=== PATIENT | female | born 1945 | race Caucasian/White ===

== ENCOUNTER 2016-05-26 16:28 | Emergency (ER) | payer MEDICARE, OTHER ==
[~2016-05-26] VITALS: Ht 157.5 cm; Wt 69.0 kg
[2016-05-26 16:28] VITALS: BP 99/54; PULSE 75; RESP 15; O2SAT 94
[~2016-05-26 16:28] MED LIST: ATOR40TA69 PO; CARV12.5 PO; CLOP75TA28 PO; ERGO500050 PO; FENO160T14 PO; FLUO40CA PO; GABA-502 PO; HYDR25CA PO; MECL-114 PO; NITR0.4T SL; OXYC5TAB72 PO; PROM12.510 PO; ROPI2TAB3 PO; SEVE800T7 PO; ZLP10T PO; [UNRECOGNIZED DRUG - REMARK] XX
--- NOTE | 2016-05-26 16:38 | ED.REPORT ---
HPI-Chest Pain 40 and Over Date of Service May 26, 2016 ED Provider: Ezequiel Samuel MD Patient is a 70 year old female with a history of ESRD on dialysis, Crohn's disease s/p total colectomy, and hypertension who presents to the ED via EMS after she developed chest pain at 3:30pm this afternoon. The pain started in the center of her chest, moving to the left, and down her left arm. She reports associated nausea and diaphoresis but denies shortness of breath. The patient took 2x nitroglycerin after onset of chest pain and was found unresponsive on EMS arrival. However, the patient was awakened and she reported ongoing chest pain and a headache. Patient was found to be hypotensive, which she states always happens following dialysis. She also had a routine appointment with her home economist, Dr. Bravo, this morning. The patient states that this is the first time she has needed to use the nitroglycerin at home. She has an episode of chest pain similar in character several months ago, which resolved. Patient denies having acid-reflux. Patient denies fever, abdominal pain, or cough. One visit to ED last month for chest pain. Negative stress test 2014 Gauge Machine Operator: Dr. Burch PCP: Dr. Horn Nursing Notes Stated Complaint: CHEST PAIN Nursing Notes Reviewed: Yes Allergies: Coded Allergies: Penicillins (Verified Allergy, Severe, Anaphylaxis, 01/20/16) Sulfa (Sulfonamide Antibiotics) (Verified Allergy, Severe, ANAPHYLAXIS, 01/20/16) NSAIDS (Non-Steroidal Anti-Inflamma (Verified Allergy, Intermediate, " HARD ON KIDNEYS", 01/20/16) morphine (Verified Allergy, Intermediate, "goes crazy", 01/20/16) aspirin (Verified Allergy, Unknown, tongue swells, 01/20/16) heparin (Verified Allergy, Unknown, thrombocytopenia, 01/20/16) HIT latex (Verified Allergy, Unknown, weeping rash, 01/20/16) Uncoded Allergies: CHLORAPREP (Allergy, Severe, rash/itching, 01/08/16) weeping rash Foam Dressing (Allergy, Severe, Hives, 10/09/13) Deep redness, pain, and swelling to skin occurs when foam dressing is used. Scheduled Atorvastatin (Lipitor) 20 Mg Tablet 20 MG PO DAILY Carvedilol (Coreg) 12.5 Mg Tablet 12.5 MG PO DAILY Do not take in the morning of dialysis Clopidogrel (Clopidogrel) 75 Mg Tablet 75 MG PO DAILY Ergocalciferol (Vitamin D2) (Drisdol) 50,000 Unit Capsule 50,000 UNIT PO Q7D Fluoxetine (Fluoxetine) 40 Mg Capsule 40 MG PO QAM Gabapentin (Gabapentin) 300 Mg Capsule 900 MG PO TID Lanthanum Carb Chew (Fosrenol Chew) 500 Mg Chew 1,000 MG PO TID Leflunomide (Leflunomide) 20 Mg Tablet 20 MG PO DAILY Ropinirole (Ropinirole) 2 Mg Tablet 2 MG PO DAILY Sevelamer Carbonate (Renvela) 800 Mg Tablet 800 MG PO TID Scheduled PRN ([Emla]) 1 APPLIC TOPICAL DIRECTED PRN PRN For Pain apply topically over left AVF 1/2 hr before dialysis on , , TUE Hydroxyzine Pamoate (Vistaril) 25 Mg Capsule 25 MG PO QID PRN PRN For Itching Meclizine (Bonine) 25 Mg Tab.chew 12.5 MG PO TID PRN PRN PRN Nitroglycerin SL (Nitrostat) 0.4 Mg Tab.subl 0.4 MG SL Q5MIN PRN PRN ANGINA Ondansetron (Ondansetron) 4 Mg Tablet 4 MG PO TID PRN PRN For Nausea/Vomiting Zolpidem (Ambien) 5 Mg Tablet 5 MG PO HS PRN PRN For Insomnia oxyCODONE (oxyCODONE) 5 Mg Tablet 5 MG PO Q6-8H PRN PRN For Pain General Time Seen by MD: 16:45 Chief Complaint Chest pain Hx Obtained From: Patient Arrived By: Ambulance Sudden in Onset?: Yes Onset Occurred: 1 - 4 hours ago Symptom Duration: Since onset Location: : Chest left: Chest right Quality: Painful Severity: Current: Moderate Severity: Maximum: Moderate Recent Healthcare: No recent doctor visit, No recent hospitalization Past Medical History Past Medical History Notes: stopped remicade 06/2011, taking plaquenil PCP: Dr. Horn Gauge Machine Operator: Dr. Burch Past Medical History History of Crohn's disease. Status post total colectomy and ileostomy, treated with Remicade infusion once a month, and followed by Dr. Kim. ESRD following cardiac arrest, on , , and Sat dialysis History of recurrent small bowel obstructions and adhesions History of subdural hematoma. History of heparin-induced thrombocytopenia. History of recent abdominal wall cellulitis with MRSA, for which the patient finished a course of IV vancomycin just yesterday. History of TIA, left sided weakness Does not drive due to chronic vertigo Hx cardiac arrest during abd surgery Reports: Diabetes mellitus, GERD, Hypertension, Stroke Reports: Atrial fibrillation, Depression Past Surgical History bowel resection ileostomy colectomy Reports: Cholecystectomy Smoking History Former Smoker Social History Alcohol Use: Denies alcohol use Drug Use: Denies drug use Occupation lives with Ambulatory Status Independent Review of Systems Constitutional: Denies: Chills, Fever Respiratory: Denies: Non-productive cough, Shortness of breath Cardiovascular: Reports: Chest pain, Denies: Palpitations GI: Reports: Nausea, Denies: Abdominal pain, Vomiting Skin: Reports Diaphoresis Neurologic: Reports: Headache Complete sys rev & neg: except as marked. Physical Exam Initial Vital Signs Vital Signs (First) Date Time Temp Pulse Resp B/P Pulse Ox O2 Delivery O2 Flow Rate FiO2 05/26/16 16:28 36.7 75 15 99/54 94 Room Air 05/26/16 17:55 2 Initial VS: Reviewed Head / Eyes: Atraumatic, Normocephalic, PERRL ENT: Conjunctiva normal, No scleral icterus Neck: Supple, Full range of motion Skin: Warm, Dry Neurologic: Alert, Oriented, Nonfocal Psychiatric: Mood/affect normal, Behavior normal, Normal thought content General/Constitutional: Awake, Alert, No acute distress Respiratory / Chest: Breath sounds NL, Breath sounds = bilat, No respiratory distress, No rales, No rhonchi, No wheezing Cardiovascular: Heart rate NL, Regular rhythm, No gallop, No rubs Heart Sounds / Murmur: Positive: Murmur shape... (Crescendo), Systolic murmur present.. (upper left sternal border) Abdomen: Soft, BS normoactive Lower Extremity / Pelvis / MS: Full range of motion, No edema Upper Extremity / MS: No swelling, No deformity, No edema palpable thrill left arm, AV fistula Interpretation & Diagnostics Lab Results Interpretation Result Diagram: 05/26/16 1713 05/26/16 1713 Test 05/26/16 17:13 05/26/16 19:28 White Blood Count 5.1th/mm3 (3.8-10.1) Red Blood Count 3.98mil/mm3 (3.90-5.20) Hemoglobin 12.6g/dL (12.0-15.6) Hematocrit 38.3% (35.0-46.0) Mean Corpuscular Volume 96.2fL (81-100) Mean Corpuscular Hemoglobin 31.7pg (27.0-35.0) Mean Corpuscular Hemoglobin Concent 32.9% (32.0-37.0) Red Cell Distribution Width 14.4% (12.3-15.4) Platelet Count 167bil/L (150-400) Neutrophils (%) (Auto) 56.3% (40-74) Lymphocytes (%) (Auto) 27.0% (14-46) Monocytes (%) (Auto) 9.3% (4-12) Eosinophils (%) (Auto) 6.2% (0-5) Basophils (%) (Auto) 0.6% (0-3) Sodium Level 132mEq/L (134-144) Potassium Level 4.3mEq/L (3.5-5.2) Chloride Level 85mEq/L (97-108) Carbon Dioxide Level 26mmol/L (18-29) Blood Urea Nitrogen 34mg/dL (8-27) Creatinine 5.82mg/dL (0.57-1.00) Estimat Glomerular Filtration Rate 10mL/min (>59) Glucose Level 111mg/dL (60-99) Calcium Level 8.7mg/dL (8.5-10.1) Magnesium Level 1.6mg/dL (1.6-2.6) Total Bilirubin 0.2mg/dL (0.0-1.2) Aspartate Amino Transf (AST/SGOT) 20U/L (0-50) Alanine Aminotransferase (ALT/SGPT) 24U/L (0-32) Alkaline Phosphatase 257U/L (25-165) Total Protein 7.5g/dL (6.4-8.4) Albumin 4.6g/dL (3.4-5.0) Hold Odonnell Top Tube Received (Received) Troponin T < 0.010ug/L (0.0-0.011) ECG Interpretation Time: 16:27 Interpreted by: ED physician Normal ECG Interpretation: Normal ECG w/ rate of... (70), No acute ischemic changes Time: 18:55 Interpreted by: ED physician Normal ECG Interpretation: Normal ECG w/ rate of... (66), No acute ischemic changes Repeat ECG: Repeat ECG unchanged X-Ray Chest Interpretation Chest Xray Interpretation: IMPRESSION: No acute process. Dictated by: Macarena Moe M.D. on 05/26/2016 at 16:58 Approved by: Macarena Moe M.D. on 05/26/2016 at 16:58 View: Portable, 1 view Interpretation / Wet Read by: Interpret - Radiologist Re-Eval/Medical Decision Source of Hx: Old records Time of Eval: 18:35 Patient Status: Condition improved Re-Evaluation/Progress Note: Patient states that her chest pain is now improved. However, she now has an ongoing headache. Time of Eval: 20:09 Patient Status: Condition improved Re-Evaluation/Progress Note: Patient understands and agrees with the plan to be discharged home. Work-up was negative. Discharge instructions and follow-up discussed. All questions were addressed. Return to the ED warnings given. Counseled Regarding: Diagnosis, Lab results, Need for follow-up, When/why to return to ED Discharge & Departure Primary Impression: Chest pain Chest pain type: unspecified Qualified Code: R07.9 - Chest pain, unspecified Disposition: Home Discharge Condition All VS Reviewed: Yes Condition: Stable Patient Instructions: Chest Pain (ED) Additional Instructions: Emergency department evaluation today included interview, examination, review of old records, chest x-ray, EKG 2x, and laboratory evaluation with repeat of testing for heart muscle damage. No serious cause for chest pain is found. continue previous home care, may use your home pain medications as needed. return to ED for increasing pain or increasing trouble breathing. Follow up with primary care and nephrology soon. Referrals: Gabriella Horn MD (PCP) Giaibe Attestation Portions of this note were transcribed by Christine Crowder. I, Dr. Samuel personally performed the history, physical exam and medical decision-making; I reviewed and confirmed the accuracy of the information in the transcribed note. Signed by: Kimberly Alvarez, 05/26/2016 0407 copies to: Gabriella Horn MD, Donald L MD May 26, 2016 16:38 Chrisitne Crowder May 26, 2016 16:41
--- NOTE | 2016-05-26 17:00 | DRSVH ---
PROCEDURE: X-RAY CHEST ONE VIEW, PORTABLE ([id number]) INDICATIONS: chest pain TECHNIQUE: One view of the chest was acquired. COMPARISON: LOCATED WITHIN [facility], CR, XR CHEST 2VW, 05/05/2016, 12:31. [facility], C R, XR CHEST 1VW (PORTABLE), 03/31/2016, 13:41. [facility], CR, XR CHEST 1VW (PORTABLE), 10/07/2015, 17:00. [facility], CR, XR CHEST 1VW (PORTABLE), 10/03/2015, 7:17. FINDINGS: Surgical changes and devices: None. Lungs and pleura: No pleural effusions or pneumothorax. Lungs are clear. Mediastinum: Mediastinal contours appear normal. Heart size is normal. Bones and chest wall: No suspicious bony lesions. Overlying soft tissues appear unremarkable. IMPRESSION: No acute process. Dictated by: Macarena Moe M.D. on 05/26/2016 at 16:58 Approved by: Macarena Moe M.D. on 05/26/2016 at 16:58
[2016-05-26] MEDS ORDERED: LEFL20TA18 PO (17:13)
[2016-05-26] MEDS ORDERED: ZLP5T PO (17:13)
[2016-05-26] MEDS ORDERED: LANT500T PO (17:13)
[2016-05-26] MEDS ORDERED: ATOR20TA PO (17:13)
[2016-05-26] MEDS ORDERED: ONDA-53 PO (17:13)
[2016-05-26] MEDS ORDERED: EMLA TOPICAL (17:13)
[2016-05-26 17:24] LABS: BASOPHILS % (AUTO) 0.6 % (0-3); EOSINOPHILS % (AUTO) 6.2 % (0-5); MONOCYTES % (AUTO) 9.3 % (4-12); Mean Corpuscular Hemoglobin 31.7 pg (27.0-35.0); Mean Corpuscular Volume 96.2 fL (81-100); NEUTROPHILS % (AUTO) 56.3 % (40-74); Platelet Count 167 bil/L (150-400)
[2016-05-26 17:55] VITALS: BP 91/45; PULSE 70; RESP 16; O2SAT 98
[2016-05-26 18:01] LABS: Magnesium 1.6 mg/dL (1.6-2.6)
[2016-05-26 18:11] LABS: TROPONIN T < 0.010 ug/L (0.0-0.011)
[2016-05-26] MEDS ORDERED: HYDROmorphone 1 mg/mL Inj IM ONE (18:45)
[2016-05-26 19:30] VITALS: BP 103/56; PULSE 71; RESP 18; O2SAT 97
[2016-05-26 20:48] VITALS: BP 105/65; RESP 16; O2SAT 97
== END 2016-05-26 20:30 | disposition home or self-care (01) ==
LOC: SED 16:28
DX: R07.9 Chest pain, unspecified (principal); I12.0 Hypertensive chronic kidney disease with stage 5 chronic kidney disease or end stage renal disease; E11.22 Type 2 diabetes mellitus with diabetic chronic kidney disease; N18.6 End stage renal disease; K21.9 Gastro-esophageal reflux disease without esophagitis; Z86.73 Personal history of transient ischemic attack (TIA), and cerebral infarction without residual deficits; Z90.49 Acquired absence of other specified parts of digestive tract; Z87.891 Personal history of nicotine dependence; Z88.0 Allergy status to penicillin; Z88.2 Allergy status to sulfonamides; Z88.5 Allergy status to narcotic agent; Z88.6 Allergy status to analgesic agent; Z88.8 Allergy status to other drugs, medicaments and biological substances; Z91.040 Latex allergy status
CPT/HCPCS: 36415; 71010; 80053; 83735; 84484; 85025; 93005; 96372; 99285; G0463; J1170

== ENCOUNTER 2016-09-03 16:34 | Inpatient (IN) | payer MEDICARE, OTHER ==
[~2016-09-03] VITALS: Ht 157.5 cm; Wt 74.4 kg
[~2016-09-03 16:34] MED LIST changes: +ATOR20TA PO; -ATOR40TA69 PO; +EMLA TOPICAL; -FENO160T14 PO; +LANT500T PO; +LEFL20TA18 PO; +ONDA-53 PO; -PROM12.510 PO; -ZLP10T PO; +ZLP5T PO; -[UNRECOGNIZED DRUG - REMARK] XX
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
[2016-09-03 16:53] VITALS: BP 100/46; PULSE 80; RESP 15; O2SAT 97
[2016-09-03] MEDS ORDERED: fentaNYL-PF 50 mCg/mL 2 mL Inj IVPUSH ONE (16:55)
[2016-09-03 16:56] LABS: BASOPHILS % (AUTO) 0.5 % (0-3); EOSINOPHILS % (AUTO) 2.8 % (0-5); MONOCYTES % (AUTO) 9.5 % (4-12); Mean Corpuscular Hemoglobin 31.5 pg (27.0-35.0); Mean Corpuscular Volume 101.4 fL (81-100); NEUTROPHILS % (AUTO) 53.5 % (40-74); Platelet Count 199 bil/L (150-400)
[2016-09-03] MEDS: Nitroglycerin 2% 1 Gm Ointment TOPICAL SCH (17:24)
[2016-09-03 17:26] LABS: TROPONIN T < 0.010 ug/L (0.0-0.011)
[2016-09-03 17:32] LABS: Magnesium 1.6 mg/dL (1.6-2.6)
--- NOTE | 2016-09-03 17:35 | DRSVH ---
PROCEDURE: X-RAY CHEST ONE VIEW, PORTABLE ([id number]) INDICATIONS: CHEST PAIN TECHNIQUE: One view of the chest was acquired. COMPARISON: [facility], CR, XR CHEST 2VW, 06/18/2015, 11:45. [facility], CR , XR CHEST 1VW (PORTABLE), 05/26/2016, 16:41. FINDINGS: Surgical changes and devices: None. Lungs and pleura: No pleural effusions or pneumothorax. Lungs are clear. Mediastinum: Mediastinal contours appear normal. Heart size is normal. Bones and chest wall: No suspicious bony lesions. Overlying soft tissues appear unremarkable. IMPRESSION: No acute cardiopulmonary disease process. Dictated by: Sintia Franklin MD, PhD on 09/03/2016 at 17:32 Approved by: Sintia Franklin MD, PhD on 09/03/2016 at 17:33
--- NOTE | 2016-09-03 17:58 | DRSVH ---
PROCEDURE: US VENOUS LEG DUPLEX BILATERAL INDICATIONS: Chest pain, assess for DVT TECHNIQUE: Real-time imaging, as well as color and pulse Doppler interrogation, were performed of the deep veins of both legs from the inguinal ligament to the popliteal fossa. COMPARISON: None. FINDINGS: The deep veins are normally compressible, and free of intraluminal thrombus. Color and pu lse Doppler demonstrate normal phasic intravascular flow. There is normal augmentation response to d istal compression maneuver. IMPRESSION: No evidence of deep vein thrombosis involving either the right or left lower extremities . Dictated by: Sintia Franklin MD, PhD on 09/03/2016 at 17:56 Approved by: Sintia Franklin MD, PhD on 09/03/2016 at 17:57
[2016-09-03] MEDS ORDERED: Sodium Bicarb (50 mEq) 8.4% 1 mEq/mL 50 mL Syringe IVPUSH ONE (18:45)
[2016-09-03] MEDS ORDERED: Insulin Human REGular-Omnicell 100 Unit/mL IV ONE (18:45)
[2016-09-03] MEDS ORDERED: Albuterol 0.5% (5mg/mL) 20 mL Inhalation Solution NEB ONE (18:45)
[2016-09-03] MEDS ORDERED: Calcium GLUCOnate 10% (Gm) 1 Gm/10 mL Inj IVPUSH PRN (18:45)
[2016-09-03] MEDS ORDERED: Sodium Polystyrene Sulfonate 0.25 Gm/mL 500 mL Suspension PO ONE (18:50)
[2016-09-03 18:55] VITALS: BP 98/65; PULSE 78; RESP 14; O2SAT 97
[2016-09-03] MEDS ORDERED: CHOL500050 PO (19:07)
[2016-09-03] MEDS ORDERED: CINA60TA PO (19:13)
[2016-09-03] MEDS ORDERED: [UNRECOGNIZED DRUG - CODE] PO (19:13)
[2016-09-03] MEDS ORDERED: PROM25TA14 PO (19:13)
[2016-09-03] MEDS ORDERED: LIDO1KIT TP (19:15)
[2016-09-03] MEDS ORDERED: Polyethylene Glycol (PEG) 17 Gm Powder PO PRN (19:35)
[2016-09-03] MEDS ORDERED: Ondansetron 2 mg/mL 2 mL Inj IVPUSH PRN (19:35)
[2016-09-03] MEDS ORDERED: Alum-Mag Hydrox-Simeth 30 mL Suspension PO PRN (19:35)
[2016-09-03] MEDS ORDERED: HYDROmorphone 0.5 mg/0.5 mL iSecure Syringe IVPUSH ONE (19:55)
[2016-09-03 20:20] VITALS: PULSE 95; RESP 20; O2SAT 98
[2016-09-03 20:40] VITALS: BP 105/56; PULSE 101; RESP 16; O2SAT 98
--- NOTE | 2016-09-03 21:14 | PCM.HPMED ---
Subjective Date of Service Sep 03, 2016 Primary Provider: Admitting Physician: Primary Care Physician: Gabriella Horn MD Attending Physician: Admit Status: From the Emergency Department Chief Complaint: Chest Pain History of Present Illness: Very pleasant 71yo woman with history of Crohn's Disease s/p Colectomy at age11 and multiple surgeries for SBO, ESRD on HD, DM2, HTN, Afib on Plavix presents with severe chest pain radiating to the jaw and left arm accompanied by sweating that started at 4pm today. She reports that she has occasional episodes of milder chest pain that have resolved quickly in the past with Nitrostat. She had a normal stress test in May. In the ED she was found to have a K+ of 6.2. She has HD on , Tue. In the ED she has been given Calcium Gluconate, Insulin, and Kayexalate along with Dilaudid. Her chest pain is much improved and she is resting comfortably. Initial Troponin was < 0.010. Review of Systems: Chronic right hip pain. Complete ROS is otherwise negative except as noted above in the HPI. Allergies Coded Allergies: Penicillins (Verified Allergy, Severe, Anaphylaxis, 09/03/16) Sulfa (Sulfonamide Antibiotics) (Verified Allergy, Severe, ANAPHYLAXIS, ) NSAIDS (Non-Steroidal Anti-Inflamma (Verified Allergy, Intermediate, " HARD ON KIDNEYS", 09/03/16) morphine (Verified Allergy, Intermediate, "goes crazy", 09/03/16) aspirin (Verified Allergy, Unknown, tongue swells, 09/03/16) heparin (Verified Allergy, Unknown, HEPARIN INDUCED THROMBOCYTOPENIA, 09/03) HIT latex (Verified Allergy, Unknown, weeping rash, 09/03/16) Uncoded Allergies: CHLORAPREP (Allergy, Severe, rash/itching, 01/08/16) weeping rash Foam Dressing (Allergy, Severe, Hives, 10/09/13) Deep redness, pain, and swelling to skin occurs when foam dressing is used. Home Medications Scheduled Atorvastatin (Lipitor) 20 Mg Tablet 40 MG PO HS Cholecalciferol (Vitamin D3) (Vitamin D) 50,000 Unit Capsule 50,000 UNIT PO WEEKLY Cinacalcet HCl (Sensipar) 60 Mg Tablet 60 MG PO HS Clopidogrel (Clopidogrel) 75 Mg Tablet 75 MG PO QAM Doxercalciferol (Hectorol) 0.5 Mcg Capsule Unknown Dose PO TuThSa RECEIVES WITH DIALYSIS, UNKNOWN DOSE Fluoxetine (Fluoxetine) 40 Mg Capsule 40 MG PO QAM Gabapentin (Gabapentin) 300 Mg Capsule 900 MG PO TID Lanthanum Carb Chew (Fosrenol Chew) 500 Mg Chew 1,000 MG PO TIDWM Leflunomide (Leflunomide) 20 Mg Tablet 20 MG PO HS Lidocaine/Prilocaine (Prilolid 2.5-2.5% Crm-Dress) 2.5 %-2.5 % Kit 1 EACH TP / JAZMYNE/TUE APPLY TOPICALLY OVER LEFT AVF 1/2 HOUR PRIOR TO DIALYSIS Ropinirole (Ropinirole) 2 Mg Tablet 2 MG PO HS Sevelamer Carbonate (Renvela) 800 Mg Tablet 1,600 MG PO TIDWM Zolpidem (Ambien) 5 Mg Tablet 5 MG PO HS Scheduled PRN Hydroxyzine Pamoate (Vistaril) 25 Mg Capsule 25 MG PO QID PRN PRN For Itching Meclizine (Bonine) 25 Mg Tab.chew 12.5 MG PO TID PRN PRN VERTIGO, NAUSEA/ VOMITING Nitroglycerin SL (Nitrostat) 0.4 Mg Tab.subl 0.4 MG SL Q5MIN PRN PRN ANGINA Ondansetron (Ondansetron) 4 Mg Tablet 4 MG PO TID PRN PRN For Nausea STATES TAKES AT BEDTIME SCHEDULED Promethazine (Promethazine) 25 Mg Tablet 25 MG PO Q6H PRN PRN For Nausea/ Vomiting oxyCODONE (oxyCODONE) 5 Mg Tablet 5 MG PO Q6H PRN PRN For Pain PMH History of Crohn's disease. Status post total colectomy and ileostomy, treated with Remicade infusion once a month, and followed by Dr. Kim. ESRD following cardiac arrest, on , , and Tue dialysis History of recurrent small bowel obstructions and adhesions History of subdural hematoma. History of heparin-induced thrombocytopenia. History of recent abdominal wall cellulitis with MRSA, for which the patient finished a course of IV vancomycin just yesterday. History of TIA, left sided weakness Does not drive due to chronic vertigo Hx cardiac arrest during abd surgery Diabetes mellitus, GERD, Hypertension, Stroke Atrial fibrillation, Depression Osteoarthritis RLS Surgical History Bowel resection Ileostomy Colectomy Multiple surgeries for SBO Cholecystectomy Evacuation of subdural hematoma Family History Father: , HTN, stroke, CAD, CABG, [place] Mother: , HTN, Stroke, CAD Social History Hx Alcohol Use: No Hx Substance Use: No Hx Tobacco Use: No Smoking Status: Former Smoker Living Arrangement: with Family Exam Vital Signs Vital Sign - Last Date Time Temp Pulse Resp B/P Pulse Ox O2 Delivery O2 Flow Rate FiO2 09/03/16 18:55 78 14 98/65 97 Nasal Cannula 1 09/03/16 16:53 36.7 Exam General: Alert, Oriented X3, Cooperative, No Acute Distress Head: Normocephalic, atraumatic. External ears normal. Eyes: PERRLA, EOMI. Anicteric sclerae. Mouth: Mouth Normal, Mucous Membranes Moist/Occidental Neck: Neck supple with full range of motion. Chest & Lungs: Clear to auscultation bilaterally with no crackles, wheezes, or rhonchi. Cardiovascular: Regular Rate/Rhythm, Normal S1, Normal S2, No Murmurs/Rubs/ Gallops Abdomen: Non-tender, Non-distended, No masses, Normoactive bowel tones, Soft, ileostomy in place in LLQ Musculoskeletal: Normal Range of Motion Extremities: No cyanosis/clubbing/edema bilaterally Neurological: Grossly Neurologically Intact, Cranial Nerves 2-12 Intact, Normal Speech Lab and Diagnostics Labs Laboratory Tests Test 09/03/16 16:40 White Blood Count 6.4th/mm3 (3.8-10.1) Red Blood Count 3.56mil/mm3 (3.90-5.20) Hemoglobin 11.2g/dL (12.0-15.6) Hematocrit 36.1% (35.0-46.0) Mean Corpuscular Volume 101.4fL (81-100) Mean Corpuscular Hemoglobin 31.5pg (27.0-35.0) Mean Corpuscular Hemoglobin Concent 31.0% (32.0-37.0) Red Cell Distribution Width 14.2% (12.3-15.4) Platelet Count 199bil/L (150-400) Neutrophils (%) (Auto) 53.5% (40-74) Lymphocytes (%) (Auto) 33.4% (14-46) Monocytes (%) (Auto) 9.5% (4-12) Eosinophils (%) (Auto) 2.8% (0-5) Basophils (%) (Auto) 0.5% (0-3) Sodium Level 133mEq/L (134-144) Potassium Level 6.2mEq/L (3.5-5.2) Chloride Level 85mEq/L (97-108) Carbon Dioxide Level 25mmol/L (18-29) Blood Urea Nitrogen 40mg/dL (8-27) Creatinine 6.67mg/dL (0.57-1.00) Estimat Glomerular Filtration Rate 9mL/min (>59) Glucose Level 91mg/dL (60-99) Calcium Level 8.8mg/dL (8.5-10.1) Magnesium Level 1.6mg/dL (1.6-2.6) Total Bilirubin 0.2mg/dL (0.0-1.2) Aspartate Amino Transf (AST/SGOT) 18U/L (0-50) Alanine Aminotransferase (ALT/SGPT) 19U/L (0-32) Alkaline Phosphatase 231U/L (25-165) Troponin T < 0.010ug/L (0.0-0.011) Total Protein 7.8g/dL (6.4-8.4) Albumin 4.8g/dL (3.4-5.0) Result Diagram: 09/03/16 1640 09/03/16 1640 12-lead ECG ECG Interpretation: Normal sinus rhythm rate 84 No ischemic changes No interval change from previous on 05/26/2016 Time: 16:43 Interpreted by: ED physician ECG Interpretation: Normal sinus rhythm rate 76 No acute ischemia No interval change from previous today Time: 18:11 Interpreted by: ED physician Also reviewed by myself, Dr De Leon, and I agree with above interpretations. Assessment & Plan Very pleasant 71yo woman with history of Crohn's Disease s/p Colectomy at age11 and multiple surgeries for SBO, ESRD on HD, DM2, HTN, Afib on Plavix presents with severe chest pain radiating to the jaw and left arm accompanied by sweating that started at 4pm today. She reports that she has occasional episodes of milder chest pain that have resolved quickly in the past with Nitrostat. She had a normal stress test in May. In the ED she was found to have a K+ of 6.2. She has HD on , Sat. In the ED she has been given Calcium Gluconate, Insulin, and Kayexalate along with Dilaudid. Her chest pain is much improved and she is resting comfortably. Initial Troponin was < 0.010. 1. Chest Pain, POA, improved. Secondary to hyperkalemia vs ACS or combination thereof. Angina usually resolved with Nitrostat -Cardiology consult in the morning -Dilaudid for pain -Nitrostat 0.4mg SL [id number] PRN -treating hyperkalemia as below -first Troponin < 0.010 -Trending Troponins at 2350 and 0500 2. Hyperkalemia, POA, secondary to ESRD -Given in ER: CalciumGluconate 1gm, Insulin Regular 10units, Dextrose 50ml, Kayexalate 30gm PO 3. ESRD, POA, on HD ,,Tue -Nephrology consult requested -Plan for HD tomorrow 4. Paroxysmal AFib, POA, -continue Plavix 75mg daily -holding Metoprolol in the morning for dialysis 5. Diabetes Mellitus type 2, POA, diet controlled, not medicated since starting dialysis which she reports has seemed to help her glucose control. 6. History of Crohn's disease. Status post total colectomy and ileostomy, treated with Remicade infusion once a month, and followed by Dr. Kim. 7. History of heparin-induced thrombocytopenia. DVT prophylaxis will be SCDs and she is on Plavix. 8. Hyperparathyroidism, POA, stable -Continue home doses of Cinacalcet and Sevelamer 9. Chronic right hip pain secondary to OA, POA. -continue Oxycodone 5mg PO q6h PRN -continue Gabapentin 900mg PO TID -continue Leflunomide 20mg PO qhs 10. Depression, POA, stable -continue fluoxetine 40mg PO qam 11. Pruritis, POA, ongoing -Continue Hydroxyzine 25mg PO QID PRN 12. Hyperlipidemia, POA, stable -continue Atorvastatin 40mg PO qhs 13. Insomnia, POA -continue Zolpidem Tartrate 5mg 14. RLS, POA, stable -continue Ropinirole 2mg PO qhs PRN medications available for nausea, heartburn, constipation: Promethazine, Ondansetron, Maalox, Senna, Miralax Pain Evaluation: Adequate Pain Control VTE Prophylaxis Indicated: Contraindicated (hx of heparin induced thrombocytopenia) VTE Prophylaxis: SCDs Resuscitation Status: CPR: Attempt Resuscitation Attending Statement The patient was seen and examined together with Dr. De Leon on 09/03 and I agree with the history, exam and plan as outlined in the note above. Iftikhar De Leon DO Sep 03, 2016 20:26 Amarjit Martinez MD Sep 03, 2016 22:53
[2016-09-03] MEDS: LEFLUNOMIDE 20 MG TABLET PO SCH (21:30)
[2016-09-03 22:33] VITALS: BP 123/60; PULSE 99; RESP 16; O2SAT 95
--- NOTE | 2016-09-03 22:34 | NUR ---
NEW ADMIT Report received from Bryce Renner RN, Pt to the floor @ 9050. Pt c/o pain 10/23 on arrival and received 5mg IR oxycodone with minimal relief. Pt independent in room, vitals stable, dialysis in AM. Pt has colostomy and requires no assistance with cleaning. Pt has DM2, but is controlled with diet.
[2016-09-03 23:11] VITALS: BP 120/76; PULSE 89; RESP 17; O2SAT 98
[2016-09-04] VITALS (7 sets, daily range): BP systolic 98–122; BP diastolic 51–78; PULSE 75–95; RESP 16–18; O2SAT 95–98
[2016-09-04] MEDS: Nitroglycerin 2% 1 Gm Ointment TOPICAL SCH (03:24)
--- NOTE | 2016-09-04 04:52 | NUR ---
POTASSIUM/COLOSTOMY Pts K+ was 6.2 in the ED, morning labs show 4.3, creatinine was 6.67 in the ED, morning labs show 7.84, dialysis scheduled for AM. Pt c/o pure water in her colostomy bag, pt stated emptying bag 5 times last night. Pt continued to complain of hip pain and slight chest discomfort, trops the same @ 0.010.
[2016-09-04] MEDS ORDERED: Ergocalciferol (Vit D2) 50,000 Unit Capsule PO SCH (08:30)
[2016-09-04] MEDS ORDERED: Lidocaine-Prilo 2.5-2.5% 5 Gm Cream TOPICAL PRN (08:30)
--- NOTE | 2016-09-04 09:27 | NUR ---
Social Work: Initial Assessment D: Per EMR review, pt is a 71 year old female admitted for chest pain resolved, hyperkalemia. Pt is Medicare with [facility] health insurance vining with no LTC insurance or VA benefits. PCP Is Gabriella Horn MD. NOK Is Nathanael Escudero, spouse, . Advanced directives completed and on chart. Readmit score is not entered at this time. [employer] met with pt and spouse at bedside. Sw role explained and contact info provided. See initial assessment. Pt lives in a group level apartment in [place] with her spouse. She is I with ADLs at baseline and occasionally uses a cane. Pt does not drive and relies on her spouse for transport. Pt has never had HH. Pt has a previous rehab stay in a facility in [facility]. Pt and spouse express no concerns about discharge when medically stable. Spouse to transport pt home. EMR reviewed; pt has been ambulating I during admission. No social work needs identified at this time. A: Pt who is I at baseline. P: Anticipate pt to discharge home via POV once medically stable; [employer] to continue to follow. RIVERA Tabares Addendum: 09/04/16 at 1019 by OLIVIA AGUAYO Amended: Links added.
--- NOTE | 2016-09-04 09:30 | NUR ---
Rapid Response Patient getting ready to go for dialysis, was sipping water, began to cough. Looked at patient her eyes were rolled back, mouth was twitching and drooping towards Left side, patients entire body shaking and jerking. Rapid response called. Episode lasted less than one minute. Patient then started saying " I'm having a stroke. I'm having a stroke". Patient stated she ws aert during episode buy her movements were uncontrollable. She also states her entire L side is numb. VSS. BG 110. evaluated patient and no new orders at this time. Patient taken to [facility] for dialysis.
--- NOTE | 2016-09-04 09:48 | NUR ---
pt arrived to [facility] for DIALYSIS (from [facility]) at ~0940 via bed awake, alert, oriented and cooperative, denies complaints report given from SN RN (PCC) to RS RN (dialysis) tele electromechanical technologist informed of temp room location
--- NOTE | 2016-09-04 11:12 | NUR ---
0930- called to pt. room for Rapid Response. Upon arrival pt. alert and oriented, responding appropriately. Respiratory not needed. will continue to monitor as indicated.
--- NOTE | 2016-09-04 11:18 | CONS ---
[address] [address] CONSULTATION REPORT PATIENT: JYOTSNA SPEAR : 1945 MR#: [id number] ADMIT: 09/03/2016 JOB ID: [id number] DATE OF SERVICE: 09/04/2016 NEPHROLOGY CONSULTATION: REQUESTING PHYSICIAN: Iftikhar De Leon DO. REASON FOR CONSULTATION: Management of end-stage renal disease. CHIEF COMPLAINT: Chest pain. PRESENT ILLNESS: This is a very pleasant 71-year-old lady who is well known to Renal service with past medical history of end-stage renal disease on hemodialysis every Tuesday, and Tuesday, Crohn disease status post total colectomy and ileostomy, history of TIA, hypertension, type 2 diabetes, atrial fibrillation, GERD, renal osteodystrophy and anemia of chronic kidney disease, who presented to the hospital with a complaint of chest pain. The patient reported that around 4 p.m. yesterday while sitting all of the sudden she developed sudden-onset chest pain. The pain was described as pressure-like in nature, pain radiating to left arm. The severity of the pain was 8/10. The pain was associated with left facial numbness and sweating. The pain lasted about 45 minutes. The patient took three nitroglycerin at home without any relief. The patient then called EMS. The patient was found to have a blood pressure of 109/57. She received fentanyl and IV Zofran en route. By the time she arrived in the emergency department the pain went away. She reports having this type of pains over the past month three times. She said that the duration and the intensity of the pain have gradually worsened over the past month. She had a stress test done before; the result was normal. She was seen by a yard associate in July. Her last dialysis was on . Her initial blood work showed a potassium of 6.2; the patient received Kayexalate. She stated that she has to change the colostomy bag five times overnight, and she had lost at least 4 pounds since she has been in the hospital. She reports having cramps last night as well. During my visit at the moment she is pain free. No chest pain. No shortness of breath. She is starving and asking for breakfast. She has no fever. No chills. No nausea or vomiting. PAST MEDICAL HISTORY: 1. End-stage renal disease, on hemodialysis every Tuesday, , Tuesday. 2. Crohn disease, status post total colectomy with ileostomy. 3. Type 2 diabetes. 4. Hypertension with hypertensive nephrosclerosis. 5. Atrial fibrillation. 6. Anemia in chronic kidney disease. 7. Renal osteodystrophy. 8. History of recurrent small bowel obstruction and adhesions. 9. History of subdural hematoma. 10. Heparin-induced thrombocytopenia. 11. History of septic shock, methicillin-resistant Staphylococcus aureus related to dialysis catheter infection in September 2015. 12. History of pneumonia complicated by empyema requiring chest tube placement. 13. Paroxysmal atrial fibrillation. PAST SURGICAL HISTORY: 1. Ileostomy and colostomy. 2. History of cholecystectomy. 3. Right tunneled catheter for dialysis placement x2. 4. Left upper arm AV fistula. 5. Left basilic venous fistula transposition in January 2016. SOCIAL HISTORY: Denies current use of alcohol, tobacco or illicit drugs. ALLERGIES: 1. PENICILLIN. 2. SULFA. 3. ASPIRIN. 4. NSAIDS. 5. HEPARIN. 6. LATEX. 7. MORPHINE. 8. CHLORAPREP. 9. FOAM DRESSING. FAMILY HISTORY: Positive for hypertension, stroke and coronary artery disease in the family. PHYSICAL EXAMINATION: Vitals: Temperature 36.5, pulse 75, respiratory rate 18, blood pressure 106/51, O2 sats 98% on room air. General appearance: Awake, alert and oriented x3, in no acute distress. HEENT: No pallor. No jaundice. No JVD. No lymphadenopathy. No thyroid enlargement. Heart: Regular rhythm. Normal S1, S2. No murmurs, rubs, or gallops. Lungs: Clear to auscultation bilaterally. Abdomen: Soft, active bowel sounds. Nontender. Nondistended. Colostomy bag noted. Extremities: No edema, cyanosis, or clubbing of fingers. DATA: Chest x-ray, no acute cardiopulmonary disease process. Lower extremity duplex showed no evidence of DVT. WBC 6.4, hemoglobin 11.2. Sodium 138, potassium 4.3, chloride 85, bicarb 26, BUN 49, creatinine 7.84, calcium 8.6, phosphorus 9.6. ASSESSMENT: 1. Chest pain. Unclear etiology. Troponin has been negative x3. No evidence of lower extremity deep venous thrombosis. No evidence hypoxemia. 2. Hyperkalemia, resolved. 3. End-stage renal disease, on hemodialysis every Tuesday, , Tuesday. 4. Renal osteodystrophy. 5. Anemia in chronic kidney disease. 6. Diabetes with diabetic nephropathy. 7. Hypertension with hypertensive nephrosclerosis. 8. Crohn disease, status post total colectomy, status post ileostomy and colostomy. PLAN: Per renal standpoint, we will resume dialysis, given her 3-1/2 hours with ultrafiltration to 1 L as tolerated. I will continue Sensipar and continue phosphate binders. Recommend cardiology consultation since the patient is high risk for coronary artery disease. Thank you for the consultation. We will monitor along with you.
[2016-09-04] MEDS: LORazepam 1 mg Tablet PO PRN ×2 (12:48→19:41)
--- NOTE | 2016-09-04 13:33 | NUR ---
Dialysis note 3.5 hr HD tx. 1000ml net UF removed. 2 15 g needles to ALEN fistula. QB 400 per MD order. No Heparin (pt has allergy stated). See DTR for complete vitals. Pt c/o multiple issues thru tx that were medicated for including: headache/anxiety/nausea/restless legs/general pain. Reports feeling better at end of tx. No seizure or TIA type activity noted. Sureseals/clamps X15 mins post tx. Report given and pt returned to floor stable.
--- NOTE | 2016-09-04 14:08 | NUR ---
Return to unit Patient returned to room 2003 from dialysis via bed. pt A&Ox3 and denies weakness /numbness. Pt c/o 12/23 hip pain, but states oxycodone given in MOC starting to help. VSS. Patient eating lunch, call light within reach.
--- NOTE | 2016-09-04 16:24 | PCM.PNMED ---
Subjective Date of Service Sep 04, 2016 Subjective 71-year-old woman with end-stage renal disease on hemodialysis, diabetes mellitus and Crohn's disease treated with DMARD's presents with acute chest pain. She describes onset at rest yesterday 4 PM. Squeezing heavy sensation in mid chest. Took nitroglycerin 3 with no relief. Duration of pain one hour, relieved in the emergency department. Similar to previous chest pain symptoms over past 6 months, which have been associated with diaphoresis and nausea. Somewhat more intense this time. No precipitating or palliating factors. She was usually able to walk dog and maintain ADLs without exertion related chest pain. She experienced distressing bilateral myoclonic shaking this morning, which she fears might be seizures. She was conscious throughout. She tolerated hemodialysis well today. She had one episode of approximately 2-3 minutes of chest pain similar to her presenting complaint. She feels well now, except slightly tired. Exam Vital Signs Vital Sign - Last Date Time Temp Pulse Resp B/P Pulse Ox O2 Delivery O2 Flow Rate FiO2 09/04/16 14:01 36.8 88 16 109/66 96 Room Air 09/03/16 20:40 8 Intake and Output 09/03/16 09/03/16 09/04/16 Cumulative From/Thru 15:00 23:00 07:00 09/03/16 16:53 - 09/04/16 06:53 Intake Total 1160 ml 1160 ml Output Total 600 ml 600 ml Balance 560 ml 560 ml Intake Oral 1160 ml 1160 ml Output Urine Total 0 ml 0 ml Stool Total 600 ml 600 ml Exam General: Middle-aged woman in no acute distress HEENT: sclerae anicteric, oral mucosa moist Neck: no JVD Chest: clear to auscultation Cardiac: S1S2, murmur Abdomen: BS normal, non-tender Extremities: No edema Neuro: A&O, cranial nerves symmetric, motor strength 5/5, coordination normal IVs and Medications Medications Reviewed: Medications were reviewed in detail Lab and Diagnostics Result Diagram: 09/03/16 1640 09/04/16 0224 12-lead ECG ECG Interpretation: Normal sinus rhythm rate 84 No ischemic changes No interval change from previous on 05/26/2016 Time: 16:43 Interpreted by: ED physician ECG Interpretation: Normal sinus rhythm rate 76 No acute ischemia No interval change from previous today Time: 18:11 Interpreted by: ED physician Also reviewed by myself, Dr De Leon, and I agree with above interpretations. Assessment & Plan 1. Chest Pain, POA, resolved. Current symptoms are similar to those evaluated by Dr. Bravo and Dr. Horn in recent months. She has history of cardiac arrest in 2008 but no anatomically defined CAD reported per cardiology notes. Most recent Lexiscan was 05/31/16, which was a low risk scan with reproduced symptoms but no EKG changes. Previous Lexiscan in 07/08/14 with similar findings. Past echocardiograms have been unremarkable. She had recent ambulatory rhythm study with minor episodes of tachycardia but no clear symptoms. Troponins are currently negative. - I discussed patient's probable need for a repeat treadmill study, either in hospital to complete on Tuesday or as an outpatient - She prefers to follow-up with Dr. Bravo for further evaluation - In light of her recent low risk Lexiscan, I think this is appropriate 2. Hyperkalemia, POA, secondary to ESRD - Managed by hemodialysis 3. ESRD, POA, on HD -Nephrology consult requested -Plan for HD tomorrow 4. Paroxysmal AFib, POA, -continue Plavix 75mg daily -holding Metoprolol in the morning for dialysis 5. Diabetes Mellitus type 2, POA, diet controlled, not medicated since starting dialysis which she reports has seemed to help her glucose control. 6. History of Crohn's disease. Status post total colectomy and ileostomy, treated with Remicade infusion once a month, and followed by Dr. Kim. 7. History of heparin-induced thrombocytopenia. DVT prophylaxis will be SCDs and she is on Plavix. 8. Hyperparathyroidism, POA, stable -Continue home doses of Cinacalcet and Sevelamer 9. Chronic right hip pain secondary to OA, POA. -continue Oxycodone 5mg PO q6h PRN -continue Gabapentin 900mg PO TID -continue Leflunomide 20mg PO qhs 10. Depression, POA, stable -continue fluoxetine 40mg PO qam 11. Pruritis, POA, ongoing -Continue Hydroxyzine 25mg PO QID PRN 12. Hyperlipidemia, POA, stable -continue Atorvastatin 40mg PO qhs 13. Insomnia, POA -continue Zolpidem Tartrate 5mg 14. RLS, POA, stable -continue Ropinirole 2mg PO qhs 15. Acute myoclonus. Patient was observed during the event and had bilateral symptoms with no loss of consciousness. This is not a seizure disorder. Likely uremic myoclonus compounded by stress of hospitalization acute illness. Markedly improved now after dialysis - Follow clinically and anticipate discharge home in a.m. PRN medications available for nausea, heartburn, constipation: Promethazine, Ondansetron, Maalox, Senna, Miralax VTE Prophylaxis: SCDs Resuscitation Status: CPR: Attempt Resuscitation Time spent 35 minutes Boom Cannon MD Sep 04, 2016 16:24
[2016-09-04] MEDS: LEFLUNOMIDE 20 MG TABLET PO SCH (19:40)
--- NOTE | 2016-09-05 02:18 | NUR ---
REST Pt was extremely tired after dialysis and slept comfortably throughout the night. Pt had an uneventful night, VVS, no other issues noted.
[2016-09-05 03:20] VITALS: BP 95/51; PULSE 86; RESP 18; O2SAT 94
[2016-09-05 05:27] VITALS: PULSE 88
[2016-09-05 08:57] VITALS: BP 121/67; PULSE 80; RESP 16; O2SAT 100
--- NOTE | 2016-09-05 10:24 | PCM.DIMED ---
Discharge Instructions Date of Service Sep 05, 2016 Dates of Hospitalization Sep 03, 2016 at 20:41 Discharge Diagnosis Discharge Diagnosis Chest pain; hyperkalemia Medication Instructions No prescriptions have been changed. Diet Renal Diet Activity No restrictions Patient Instructions Dear chest pain, although very severe this time, showed no signs of cardiac injury. The source of your chest pains unclear at this time. He may continue to use nitroglycerin as needed with recurrences, and return to the emergency department if it is particularly severe or prolonged. Follow-up plan Continue your usual nephrology hemodialysis schedule. Contact Dr. Bravo's office, indicate that you were hospitalized for chest pain, and request an appointment as soon as is feasible Boom Cannon MD Sep 05, 2016 10:24
[2016-09-05 11:01] VITALS: PULSE 85
--- NOTE | 2016-09-05 11:59 | NUR ---
Social Work Note: Discharge Data& Assessment: EMR reviewed. Per pt is medically ready to discharge home via POV. Morenita Escudero is a 71 year old female admitted on 09/03/2016 for chest pain and hyperkalemia. Per pt is medically improved and ready to discharge. SW met with pt at bedside to confirm discharge plan and assess for any unmet needs. Pt is ambulating in her room independently. Pt explained she feels much better today and is ready to discharge. Pt confirmed her is coming to transport her home and denies any other needs. No other discharge needs identified. Plan: Per pt is medically ready to discharge home via POV. Pt denies any other needs. No other discharge needs identified. RIVERA Nicole
--- NOTE | 2016-09-05 12:02 | NUR ---
Nauseous Pt stated she was nauseated and in pain prior to discharge. Administered Zofran and Oxycodone. Care continues.
--- NOTE | 2016-09-05 12:30 | NUR ---
Discharge Pt discharged at approximately 1230 to home with . Pt given educational material for Chest Pain, next dose to be taken of all medications clearly written and dated. Pt acknowledged and understood all information. Both IV's DC'd with catheters intact, tele DC'd groundwater monitoring technician notified. Pt left with all personal belongings. Escorted by [employer] to front door.
--- NOTE | 2016-09-05 18:31 | PCM.DC.MED ---
Discharge Summary Date of Service Sep 05, 2016 Dates of Hospitalization Date of Hospital Admission Sep 03, 2016 at 20:41 Date of Discharge: Sep 05, 2016 Providers: Admitting Physician: Amarjit Martinez MD Primary Care Physician: Gabriella Horn MD Attending Physician: Amarjit Martinez MD Diagnosis at Time of Discharge Diagnosis at Time of Discharge Chest pain; hyperkalemia Procedures ECG 12 Lead ECG Interpretation: Normal sinus rhythm rate 84 No ischemic changes No interval change from previous on 05/26/2016 Time: 16:43 Interpreted by: ED physician ECG Interpretation: Normal sinus rhythm rate 76 No acute ischemia No interval change from previous today Time: 18:11 Interpreted by: ED physician Also reviewed by myself, Dr De Leon, and I agree with above interpretations. Brief History History of Present Illness: Very pleasant 71yo woman with history of Crohn's Disease s/p Colectomy at age11 and multiple surgeries for SBO, ESRD on HD, DM2, HTN, Afib on Plavix presents with severe chest pain radiating to the jaw and left arm accompanied by sweating that started at 4pm today. Pain was mid left precordial and heavy in nature. It did not resolve with nitrates. She has no exertional complaints. She reports that she has occasional episodes of milder chest pain, that usually resolved quickly in the past with Nitrostat. She had a normal stress test in May. In the ED she was found to have a K+ of 6.2. She has HD on , Tue. In the ED she has been given Calcium Gluconate, Insulin, and Kayexalate along with Dilaudid. Her chest pain is much improved and she is resting comfortably. Initial Troponin was < 0.010. Hospital Course 1. Chest Pain, POA, resolved. Symptoms on presentation last about 1 hour. All troponins were undetectable. EKG was unremarkable. She had one brief additional bout during hemodialysis but did not request nitrates. Current symptoms are similar to those evaluated by Dr. Bravo and Dr. Horn in recent months. She has history of cardiac arrest in 2008 but no anatomically defined CAD reported per cardiology notes. Most recent Lexiscan was 05/31/16, which was a low risk scan with reproduced symptoms but no EKG changes. Previous Lexiscan in 07/08/14 with similar findings. Past echocardiograms have been unremarkable. She had recent ambulatory rhythm study with minor episodes of tachycardia but no clear symptoms. - I discussed patient's probable need for a repeat treadmill study or other cardiology evaluation, either in hospital to complete on Tuesday or as an outpatient - She prefers to follow-up with Dr. Bravo for further evaluation - In light of her recent low risk Lexiscan, I think this is appropriate 2. Hyperkalemia, POA, secondary to ESRD - Managed by hemodialysis 3. ESRD, POA, on HD T,,Tue - To continue her usual hemodialysis schedule 4. Paroxysmal AFib, POA, - continue Plavix 75mg daily; metoprolol 5. Diabetes Mellitus type 2, POA, diet controlled,. 6. History of Crohn's disease. Status post total colectomy and ileostomy, - treated with Remicade infusion once a month, and followed by Dr. Kim. 7. History of heparin-induced thrombocytopenia. DVT prophylaxis will be SCDs and she is on Plavix. 8. Hyperparathyroidism, POA, stable -Continue home doses of Cinacalcet and Sevelamer 9. Chronic right hip pain secondary to OA, POA. -continue Oxycodone 5mg PO q6h PRN -continue Gabapentin 900mg PO TID -continue Leflunomide 20mg PO qhs 10. Depression, POA, stable -continue fluoxetine 40mg PO qam 11. Pruritis, POA, ongoing -Continue Hydroxyzine 25mg PO QID PRN 12. Hyperlipidemia, POA, stable -continue Atorvastatin 40mg PO qhs 13. Insomnia, POA -continue Zolpidem Tartrate 5mg 14. RLS, POA, stable -continue Ropinirole 2mg PO qhs 15. Acute myoclonus. Patient was observed during the event and had bilateral symptoms, with no loss of consciousness. This is not a seizure disorder. Likely uremic myoclonus compounded by stress of hospitalization acute illness. Markedly improved now after dialysis - Follow clinically and anticipate discharge home in a.m. Exam Vital Signs (Last) Date Time Temp Pulse Resp B/P Pulse Ox O2 Delivery O2 Flow Rate FiO2 09/05/16 08:57 36.7 80 16 121/67 100 Room Air 09/03/16 20:40 8 Exam General: Middle-aged woman who appears comfortable and well composed HEENT: sclerae anicteric, oral mucosa moist Neck: no JVD Chest: clear to auscultation Cardiac: S1S2, murmur Abdomen: BS normal, non-tender Extremities: No edema Neuro: A&O, cranial nerves symmetric, motor strength and coordination normal, no myoclonus Test 09/03/16 16:40 09/04/16 02:24 White Blood Count 6.4th/mm3 (3.8-10.1) Red Blood Count 3.56mil/mm3 (3.90-5.20) Hemoglobin 11.2g/dL (12.0-15.6) Hematocrit 36.1% (35.0-46.0) Mean Corpuscular Volume 101.4fL (81-100) Mean Corpuscular Hemoglobin 31.5pg (27.0-35.0) Mean Corpuscular Hemoglobin Concent 31.0% (32.0-37.0) Red Cell Distribution Width 14.2% (12.3-15.4) Platelet Count 199bil/L (150-400) Neutrophils (%) (Auto) 53.5% (40-74) Lymphocytes (%) (Auto) 33.4% (14-46) Monocytes (%) (Auto) 9.5% (4-12) Eosinophils (%) (Auto) 2.8% (0-5) Basophils (%) (Auto) 0.5% (0-3) Magnesium Level 1.6mg/dL (1.6-2.6) Total Bilirubin 0.2mg/dL (0.0-1.2) Aspartate Amino Transf (AST/SGOT) 18U/L (0-50) Alanine Aminotransferase (ALT/SGPT) 19U/L (0-32) Alkaline Phosphatase 231U/L (25-165) Total Protein 7.8g/dL (6.4-8.4) Albumin 4.8g/dL (3.4-5.0) Sodium Level 138mEq/L (134-144) Potassium Level 4.3mEq/L (3.5-5.2) Chloride Level 85mEq/L (97-108) Carbon Dioxide Level 26mmol/L (18-29) Blood Urea Nitrogen 49mg/dL (8-27) Creatinine 7.84mg/dL (0.57-1.00) Estimat Glomerular Filtration Rate 7mL/min (>59) Glucose Level 124mg/dL (60-99) Calcium Level 8.6mg/dL (8.5-10.1) Phosphorus Level 9.6mg/dL (2.5-4.9) Troponin T 0.010ug/L (0.0-0.011) Discharge Medications Discharge Medications Atorvastatin (Lipitor) 20 Mg Tablet 40 MG PO HS (Reported) Cholecalciferol (Vitamin D3) (Vitamin D) 50,000 Unit Capsule 50,000 UNIT PO WEEKLY (Reported) Cinacalcet HCl (Sensipar) 60 Mg Tablet 60 MG PO HS (Reported) Clopidogrel (Clopidogrel) 75 Mg Tablet 75 MG PO QAM (Reported) Doxercalciferol (Hectorol) 0.5 Mcg Capsule Unknown Dose PO TuThSa (Reported) RECEIVES WITH DIALYSIS, UNKNOWN DOSE Fluoxetine (Fluoxetine) 40 Mg Capsule 40 MG PO QAM (Reported) Gabapentin (Gabapentin) 300 Mg Capsule 900 MG PO TID (Reported) Lanthanum Carb Chew (Fosrenol Chew) 500 Mg Chew 1,000 MG PO TIDWM (Reported) Leflunomide (Leflunomide) 20 Mg Tablet 20 MG PO HS (Reported) Lidocaine/Prilocaine (Prilolid 2.5-2.5% Crm-Dress) 2.5 %-2.5 % Kit 1 EACH TP / JAZMYNE/SAT (Reported) APPLY TOPICALLY OVER LEFT AVF 1/2 HOUR PRIOR TO DIALYSIS Ropinirole (Ropinirole) 2 Mg Tablet 2 MG PO HS (Reported) Sevelamer Carbonate (Renvela) 800 Mg Tablet 1,600 MG PO TIDWM (Reported) Zolpidem (Ambien) 5 Mg Tablet 5 MG PO HS (Reported) As needed Hydroxyzine Pamoate (Vistaril) 25 Mg Capsule 25 MG PO QID PRN PRN For Itching ( Reported) Meclizine (Bonine) 25 Mg Tab.chew 12.5 MG PO TID PRN PRN VERTIGO, NAUSEA/ VOMITING (Reported) Nitroglycerin SL (Nitrostat) 0.4 Mg Tab.subl 0.4 MG SL Q5MIN PRN PRN ANGINA ( Reported) Ondansetron (Ondansetron) 4 Mg Tablet 4 MG PO TID PRN PRN For Nausea (Reported) STATES TAKES AT BEDTIME SCHEDULED Promethazine (Promethazine) 25 Mg Tablet 25 MG PO Q6H PRN PRN For Nausea/ Vomiting (Reported) oxyCODONE (oxyCODONE) 5 Mg Tablet 5 MG PO Q6H PRN PRN For Pain (Reported) Additional med instructions No prescriptions have been changed. Followup Plan Follow-up plan Continue your usual nephrology hemodialysis schedule. Contact Dr. Bravo's office, indicate that you were hospitalized for chest pain, and request an appointment as soon as is feasible Discharge Diet: Renal Diet Discharge Activity: No restrictions Patient Instructions Your chest pain, although very severe this time, showed no signs of cardiac injury. The source of your chest pains unclear at this time. You may continue to use nitroglycerin as needed with recurrences, and return to the emergency department if it is particularly severe or prolonged. Time spent 35 minutes copies to: Simon Radford MD; Linda Bravo MD; Gabriella Horn MD, Jeffrey W MD Sep 05, 2016 10:25
== END 2016-09-05 12:00 | disposition home or self-care (01) | DRG 313 ==
LOC: SED 16:34 → EDUNIT# 16:34 → EDBD 16:34 → PCC 20:41
PROVIDERS: ADMIT Hospitalist; ATTEND Hospitalist
PROC: 5A1D00Z (ICD-10-PCS; principal; 2016-09-04)
DX: R07.9 Chest pain, unspecified (principal); N18.6 End stage renal disease; I12.0 Hypertensive chronic kidney disease with stage 5 chronic kidney disease or end stage renal disease; K50.90 Crohn's disease, unspecified, without complications; R42 Dizziness and giddiness; K21.9 Gastro-esophageal reflux disease without esophagitis; D63.1 Anemia in chronic kidney disease; I48.0 Paroxysmal atrial fibrillation; E11.21 Type 2 diabetes mellitus with diabetic nephropathy; E87.5 Hyperkalemia; D75.82 Heparin induced thrombocytopenia (HIT); E21.3 Hyperparathyroidism, unspecified; L29.9 Pruritus, unspecified; G47.00 Insomnia, unspecified; G25.81 Restless legs syndrome; G25.3 Myoclonus; F32.9 Major depressive disorder, single episode, unspecified; Z99.2 Dependence on renal dialysis; Z87.891 Personal history of nicotine dependence; Z88.6 Allergy status to analgesic agent; Z93.2 Ileostomy status

== ENCOUNTER 2016-09-25 18:30 | Emergency (ER) | payer MEDICARE, OTHER ==
[~2016-09-25] VITALS: Ht 157.5 cm; Wt 72.0 kg
[~2016-09-25 18:30] MED LIST changes: -CARV12.5 PO; +CHOL500050 PO; +CINA60TA PO; -EMLA TOPICAL; -ERGO500050 PO; +LIDO1KIT TP; +PROM25TA14 PO; +[UNRECOGNIZED DRUG - CODE] PO
[2016-09-25 18:35] VITALS: BP 106/66; PULSE 107; RESP 18; O2SAT 96
[2016-09-25 19:29] LABS: BASOPHILS % (AUTO) 0.2 % (0-3); EOSINOPHILS % (AUTO) 2.4 % (0-5); MONOCYTES % (AUTO) 7.6 % (4-12); Mean Corpuscular Hemoglobin 32.2 pg (27.0-35.0); Mean Corpuscular Volume 100.6 fL (81-100); NEUTROPHILS % (AUTO) 75.2 % (40-74); Platelet Count 231 bil/L (150-400)
--- NOTE | 2016-09-25 19:35 | ED.REPORT ---
HPI-Abd Pain F 40 and Over Date of Service September 25, 2016 ED Provider: Marcie Reed MD The patient is a 71 year old female with history of diabetes mellitus, hypertension, prior stroke, subdural hematoma s/p evacuation, atrial fibrillation, Crohn's disease s/p colectomy and ileostomy, known rectovaginal fistula, end stage renal disease on dialysis, and small bowel obstructions, who presents to the emergency department complaining of dysuria that began 2 days ago. She has also noticed diffuse abdominal pain, nausea, diarrhea, brown vaginal discharge, fever (102), shortness of breath (worse with exertion). Her abdominal pain comes in waves and lasts for about 30 seconds at time occurring about every 5 minutes. Her pain at most severe is a 10/10. A few days ago she noticed blood coming out of her stoma but this has resolved. She denies headache , chest pain or vomiting. Nursing Notes Stated Complaint: INFECTION,FEVER,DIALYSIS Chief Complaint: Female Abdominal Pain Nursing Notes Reviewed: Yes Allergies: Coded Allergies: Penicillins (Verified Allergy, Severe, Anaphylaxis, 09/25/16) Sulfa (Sulfonamide Antibiotics) (Verified Allergy, Severe, ANAPHYLAXIS, ) NSAIDS (Non-Steroidal Anti-Inflamma (Verified Allergy, Intermediate, " HARD ON KIDNEYS", 09/25/16) morphine (Verified Allergy, Intermediate, "goes crazy", 09/25/16) aspirin (Verified Allergy, Unknown, tongue swells, 09/25/16) heparin (Verified Allergy, Unknown, HEPARIN INDUCED THROMBOCYTOPENIA, 09/25) HIT latex (Verified Allergy, Unknown, weeping rash, 09/25/16) Uncoded Allergies: CHLORAPREP (Allergy, Severe, rash/itching, 01/08/16) weeping rash Foam Dressing (Allergy, Severe, Hives, 10/09/13) Deep redness, pain, and swelling to skin occurs when foam dressing is used. Scheduled Atorvastatin (Lipitor) 20 Mg Tablet 40 MG PO HS Cholecalciferol (Vitamin D3) (Vitamin D) 50,000 Unit Capsule 50,000 UNIT PO WEEKLY Cinacalcet HCl (Sensipar) 60 Mg Tablet 60 MG PO HS Clopidogrel (Clopidogrel) 75 Mg Tablet 75 MG PO QAM Doxercalciferol (Hectorol) 0.5 Mcg Capsule Unknown Dose PO TuThSa RECEIVES WITH DIALYSIS, UNKNOWN DOSE Fluoxetine (Fluoxetine) 40 Mg Capsule 40 MG PO QAM Gabapentin (Gabapentin) 300 Mg Capsule 900 MG PO TID Lanthanum Carb Chew (Fosrenol Chew) 500 Mg Chew 1,000 MG PO TIDWM Leflunomide (Leflunomide) 20 Mg Tablet 20 MG PO HS Lidocaine/Prilocaine (Prilolid 2.5-2.5% Crm-Dress) 2.5 %-2.5 % Kit 1 EACH TP / TUE/TUE APPLY TOPICALLY OVER LEFT AVF 1/2 HOUR PRIOR TO DIALYSIS Ropinirole (Ropinirole) 2 Mg Tablet 2 MG PO HS Sevelamer Carbonate (Renvela) 800 Mg Tablet 1,600 MG PO TIDWM Zolpidem (Ambien) 5 Mg Tablet 5 MG PO HS Scheduled PRN Hydroxyzine Pamoate (Vistaril) 25 Mg Capsule 25 MG PO QID PRN PRN For Itching Meclizine (Bonine) 25 Mg Tab.chew 12.5 MG PO TID PRN PRN VERTIGO, NAUSEA/ VOMITING Nitroglycerin SL (Nitrostat) 0.4 Mg Tab.subl 0.4 MG SL Q5MIN PRN PRN ANGINA Ondansetron (Ondansetron) 4 Mg Tablet 4 MG PO TID PRN PRN For Nausea STATES TAKES AT BEDTIME SCHEDULED Promethazine (Promethazine) 25 Mg Tablet 25 MG PO Q6H PRN PRN For Nausea/ Vomiting oxyCODONE (oxyCODONE) 5 Mg Tablet 5 MG PO Q6H PRN PRN For Pain General Time Seen by MD: 19:23 Chief Complaint Dysuria Hx Obtained From: Patient, Spouse Arrived By: Walk-in Sudden in Onset?: Yes Onset Occurred: 2 days ago Symptom Duration: Since onset Progression since Onset: Constant Location: : Diffuse Quality: Painful Severity: Current: Severe Severity: Maximum: Severe Recent Healthcare: No recent hospitalization, Recent doctor visit Similar Sx Previous: No Past Medical History Past Medical History Notes: 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 Status post total colectomy and ileostomy, treated with Remicade infusion once a month, and followed by Dr. Kim. ESRD following cardiac arrest, on , Th, and Sat dialysis History of recurrent small bowel obstructions and adhesions History of subdural hematoma. History of heparin-induced thrombocytopenia. History of recent abdominal wall cellulitis with MRSA, for which the patient finished a course of IV vancomycin just yesterday. History of TIA, left sided weakness Does not drive due to chronic vertigo Hx cardiac arrest during abd surgery Diabetes mellitus, GERD, Hypertension, Stroke Atrial fibrillation, Depression Osteoarthritis RLS Hx of known rectovaginal fistula Past Surgical History Bowel resection Ileostomy Colectomy Multiple surgeries for SBO Evacuation of subdural hematoma Reports: Cholecystectomy Family History Noncontributory Smoking History Former Smoker Social History POLST Form = FULL CODE 09/03/16 Alcohol Use: Denies alcohol use Drug Use: Denies drug use Other Social History: Good social support, , Local resident Occupation lives with Ambulatory Status Independent Review of Systems +blood from stoma Constitutional: Reports: Fever Respiratory: Reports: Dyspnea on exertion, Shortness of breath Cardiovascular: Denies: Chest pain GI: Reports: Abdominal pain, Diarrhea, Nausea, Denies: Vomiting Female: Reports: Dysuria, Vaginal discharge Complete sys rev & neg: except as marked. Neurologic: Denies: Headache Physical Exam The patient presents with 2 days of abdominal pain, she has a urinary tract infection. Initially was concern for possible ruptured bowel versus a Crohn's flare versus urinary tract infection. The patient also has a fistula which has not been very active but it started draining once again. This is likely the cause of her urinary tract infection. The patient was not found to have any other source of infection, she has normal vital signs and no signs of sepsis. Just prior to discharge she was found to have a lower blood pressure, she says this is not unusual for her and she is asymptomatic. The patient was given a dose of ceftriaxone and sent home with Keflex, she has tolerated Keflex in the past. Vital Signs Vital Signs (First) Date Time Temp Pulse Resp B/P Pulse Ox O2 Delivery O2 Flow Rate FiO2 09/25/16 18:35 37.0 107 18 106/66 96 Room Air Initial VS: Reviewed, Vital signs abnormal Head / Eyes: Atraumatic, Normocephalic, PERRL ENT: Mucous membranes moist, Conjunctiva normal, No scleral icterus Neck: Supple, Non-tender, Full range of motion Extremities: Vascular intact, Neuro intact, No swelling, No tenderness Skin: Warm, Dry, No cyanosis Neurologic: Alert, Oriented, Nonfocal Psychiatric: Mood/affect normal, Behavior normal, Normal thought content General/Constitutional: Awake, Alert, Cooperative Respiratory / Chest: Atraumatic, Breath sounds NL, Breath sounds = bilat, No respiratory distress, No rales, No rhonchi, No wheezing, No stridor Cardiovascular: Heart rate NL, Regular rhythm, Heart sounds NL, Peripheral circulation NL Abdomen: Soft, No guarding, No rebound Bowel Sounds / Distention: Positive: Bowel sounds hypoactive Generalized tenderness worse to the RLQ and suprapubic area. Back: Inspection NL, Non-tender, No CVA tenderness : Brownish discharge on pad. Interpretation & Diagnostics Lab Results Interpretation Result Diagram: 09/25/16 1908 09/25/16 1908 Test 09/25/16 15:00 09/25/16 19:08 09/25/16 19:29 Urine Color Yellow (YELLOW) Urine Appearance Cloudy (CLEAR,HAZY) Urine pH 6.0 (5.0-8.0) Urine Specific [place] 1.035 (1.003-1.035) Urine Protein >2000mg/dL (NEG,TRACE) Urine Glucose (UA) 100mg/dL (NEGATIVE) Urine Ketones 15mg/dL (NEGATIVE) Urine Occult Blood Large (NEGATIVE) Urine Nitrite Negative (NEGATIVE) Urine Bilirubin Negative (NEGATIVE) Urine Urobilinogen Normalmg/dL (NORMAL) Urine Leukocyte Esterase Large (NEGATIVE) Urine RBC 11-50/hpf (0-2) Urine WBC Packed/hpf (0-5) Urine Epithelial Cells Many/hpf (NONE-MOD) Urine Crystals None seen (NONE SEEN) Urine Bacteria Many/hpf (NONE-FEW) Urine Hyaline Casts None/lpf (NONE) Urine Granular Casts None seen (NONE SEEN) Urine Waxy Casts None seen (NONE SEEN) Urine Red Blood Cell Casts None seen (NONE SEEN) Urine White Blood Cell Casts None seen (NONE SEEN) Urine Mucus None seen (None Seen) Urine Trichomonas None seen (NONE SEEN) Urine Yeast None (NONE SEEN) Urinalysis Comment Amorphous sediment Urine Culture Reflexed Indicated White Blood Count 8.3th/mm3 (3.8-10.1) Red Blood Count 3.20mil/mm3 (3.90-5.20) Hemoglobin 10.3g/dL (12.0-15.6) Hematocrit 32.2% (35.0-46.0) Mean Corpuscular Volume 100.6fL (81-100) Mean Corpuscular Hemoglobin 32.2pg (27.0-35.0) Mean Corpuscular Hemoglobin Concent 32.0% (32.0-37.0) Red Cell Distribution Width 14.4% (12.3-15.4) Platelet Count 231bil/L (150-400) Neutrophils (%) (Auto) 75.2% (40-74) Lymphocytes (%) (Auto) 13.9% (14-46) Monocytes (%) (Auto) 7.6% (4-12) Eosinophils (%) (Auto) 2.4% (0-5) Basophils (%) (Auto) 0.2% (0-3) Sodium Level 129mEq/L (134-144) Potassium Level 3.7mEq/L (3.5-5.2) Chloride Level 82mEq/L (97-108) Carbon Dioxide Level 28mmol/L (18-29) Blood Urea Nitrogen 21mg/dL (8-27) Creatinine 4.42mg/dL (0.57-1.00) Estimat Glomerular Filtration Rate 14mL/min (>59) Glucose Level 140mg/dL (60-99) Calcium Level 8.9mg/dL (8.5-10.1) Magnesium Level 1.6mg/dL (1.6-2.6) Total Bilirubin 0.2mg/dL (0.0-1.2) Aspartate Amino Transf (AST/SGOT) 13U/L (0-50) Alanine Aminotransferase (ALT/SGPT) 22U/L (0-32) Alkaline Phosphatase 243U/L (25-165) Total Protein 7.0g/dL (6.4-8.4) Albumin 3.6g/dL (3.4-5.0) Lipase 23U/L (13-60) Hold Odonnell Top Tube Received (Received) CT Abd / Pelvis Interpretation IMPRESSION: Decompressed bladder however surrounding inflammatory fat stranding and possible wall thickening raising the possibility of cystitis. Please correlate clinically and with urinalysis data. Elsewhere, no acute abnormality or interval change. Dictated by: Charlie Lacy M.D. on 09/25/2016 at 20:41 Study type: Abdominal CT no contrast Interpretation / Wet Read by: Interpret - Radiologist Re-Eval/Medical Decision Source of Hx: Old records Re-Evaluation/Progress #1: Time of Eval: 22:45 Re-Evaluation/Progress Note: Rechecked the patient. She is not currently in any pain. Discussed results, diagnosis, and plan for disposition. Re-Evaluation/Progress #2: Time of Eval: 22:55 Re-Evaluation/Progress Note: Discussed options again with the patient. She is again not in any pain during this re-evaluation. The patient will be discharged home. Re-Evaluation/Progress #3: Time of Eval: 23:09 Re-Evaluation/Progress Note: Waiting medications from pharmacy. Counseled Regarding: Diagnosis, Lab results, Need for follow-up, When/why to return to ED Discharge & Departure Primary Impression: Urinary tract infection Urinary tract infection type: acute cystitis Hematuria presence: with hematuria Qualified Code: N30.01 - Acute cystitis with hematuria Additional Impression: Cystitis Disposition: Home Discharge Condition All VS Reviewed: Yes Condition: Stable Patient Instructions: Urinary Tract Infection in Women (GEN) Additional Instructions: Thank you for entrusting us with your care today. Your labs and CT scan are reassuring. Your urinalysis does show evidence of a urinary tract infection. Take the antibiotics as prescribed. Make sure to drink plenty of fluids. Followup with your primary doctor next week for re-evaluation. Seek care sooner for any new or concerning symptoms. Referrals: Gabriella Horn MD (PCP) Kimberly Attestation Portions of this note were transcribed by Ann Robert. I, Dr. Reed personally performed the history, physical exam and medical decision-making; I reviewed and confirmed the accuracy of the information in the transcribed note. Signed by: Kimberly Sivler, 09/25/2016 at 0001. copies to: Gabriella Horn MD, Jena M MD September 25, 2016 19:34 Ann Robert September 25, 2016 19:42
[2016-09-25] MEDS: HYDROmorphone 0.5 mg/0.5 mL iSecure Syringe IVPUSH PRN ×4 (19:54→22:42)
[2016-09-25 20:04] LABS: Magnesium 1.6 mg/dL (1.6-2.6)
--- NOTE | 2016-09-25 20:49 | DRSVH ---
PROCEDURE: CT ABDOMEN AND PELVIS WITHOUT CONTRAST ([id number]) INDICATIONS: lower abdominal pain TECHNIQUE: Noncontrast 5 mm thick sections acquired from the diaphragms to the symphysis. 5 mm coronal and sagi ttal reformats were then performed. For radiation dose reduction, the following was used: automated exposure control, adjustment of mA and/or kV according to patient size. COMPARISON: [facility], CT, CT ABD PELVIS WO CON, 10/03/2015, 19:56. FINDINGS: Image quality: Excellent. ABDOMEN: Bibasilar scarring/atelectasis. Grossly unchanged 6 mm nodule seen in the right lung base on image 3 is unchanged since 10/03/15. Heart normal size. There coronary artery calcifications. Unenhanced liver grossly unremarkable. There is midline upper anterior abdominal wall laxity. Spleen unremarkable. Ga llbladder surgically absent. No biliary ductal dilatation. Pancreas and adrenal glands within normal limits. Bilateral renal cortical scarring and atrophy. There is a exophytic right renal cyst which is also unchanged. Peritoneum and bowel: No evidence of bowel obstruction. Postsurgical changes related to presumed chol ectomy, and left lower quadrant ostomy. No free fluid or air. Nodes and vessels: No retroperitoneal or mesenteric adenopathy by size criteria. Aorta and inferior vena cava are normal in caliber. Miscellaneous: There is midline laxity of the lower abdominal wall PELVIS: Genitourinary: Bladder is decompressed therefore grossly unremarkable however there is surrounding in flammatory fat stranding Miscellaneous: No inguinal hernias or adenopathy. Bones: No suspicious bony lesions. No vertebral body compression fractures. IMPRESSION: Decompressed bladder however surrounding inflammatory fat stranding and possible wall thickening rais ing the possibility of cystitis. Please correlate clinically and with urinalysis data. Elsewhere, no acute abnormality or interval change. Dictated by: Charlie Lacy M.D. on 09/25/2016 at 20:41 Approved by: Charlie Lacy M.D. on 09/25/2016 at 20:47
[2016-09-25 21:05] LABS: COLOR,URINE YELLOW (YELLOW)
[2016-09-25 21:06] LABS: APPEARANCE,URINE CLOUDY (CLEAR,HAZY); OCCULT BLOOD,URINE LARGE (NEGATIVE); UROBILINOGEN,URINE NORMAL (NORMAL)
[2016-09-25] MEDS ORDERED: cefTRIAXone Inj 2,000 MG in Dextrose 5% Minibag Plus 50 ML IV ONE (21:20)
[2016-09-25 21:27] VITALS: BP 101/58; PULSE 86; O2SAT 92
[2016-09-25] MEDS ORDERED: _Cephalexin 500 mg Capsule PO STA (22:57)
[2016-09-25] MEDS ORDERED: _Cephalexin Suspension 250 mg/5 mL PO SCH (23:02)
[2016-09-25 23:11] VITALS: BP 114/58; PULSE 89; RESP 16; O2SAT 91
[2016-09-26] MEDS ORDERED: oxyCODONE-Acetamin 5-325 mg Tablet PO ONE (00:05)
[2016-09-26 00:14] VITALS: BP 90/47; PULSE 88; RESP 16; O2SAT 94
== END 2016-09-26 00:15 | disposition home or self-care (01) ==
LOC: SED 18:30
DX: N30.01 Acute cystitis with hematuria (principal); B96.1 Klebsiella pneumoniae [K. pneumoniae] as the cause of diseases classified elsewhere; I12.0 Hypertensive chronic kidney disease with stage 5 chronic kidney disease or end stage renal disease; E11.22 Type 2 diabetes mellitus with diabetic chronic kidney disease; N18.6 End stage renal disease; I48.91 Unspecified atrial fibrillation; K21.9 Gastro-esophageal reflux disease without esophagitis; F32.9 Major depressive disorder, single episode, unspecified; K50.90 Crohn's disease, unspecified, without complications; N82.3 Fistula of vagina to large intestine; Z99.2 Dependence on renal dialysis; Z86.73 Personal history of transient ischemic attack (TIA), and cerebral infarction without residual deficits; Z87.891 Personal history of nicotine dependence; Z79.02 Long term (current) use of antithrombotics/antiplatelets; Z88.0 Allergy status to penicillin; Z88.2 Allergy status to sulfonamides; Z88.5 Allergy status to narcotic agent; Z88.6 Allergy status to analgesic agent; Z88.8 Allergy status to other drugs, medicaments and biological substances; Z91.040 Latex allergy status
CPT/HCPCS: 36415; 74176; 80053; 81000; 83690; 83735; 85025; 87077; 87086; 87088; 87186; 96365; 96375; 96376; 99285; J0696; J1170

== ENCOUNTER 2016-09-30 11:27 | Inpatient (IN) | payer MEDICARE, OTHER ==
[~2016-09-30] VITALS: Ht 157.5 cm; Wt 72.0 kg
[2016-09-30 17:05] VITALS: BP 107/64; PULSE 98; RESP 20; O2SAT 92
--- NOTE | 2016-09-30 17:15 | NUR ---
Patient came to [facility] [place] approx 1645 by walk. Independent ambulation with no difficulty and steady on feet. patient had dialysis today and Fistula on left arm, no BP and lab draws to the left arm. C/o pain to hips, back and abdomen 12/23 and states," i have not had my Oxycodone yet because of dialysis." Dr. Durant at bed side and speaking to the patient at this time. Will give PRN pain medication as orders per Dr. durant. Notified Dr. Durant that med req done. Stable vital signs. Denies chest pain or discomfort. No sign and symptoms of respiratory distress noted. Tele on as ordered and Box#26. Neuros WNL. Alert and oriented X3. Able to make needs known. Stable mood. Educated patient to use call light with return demonstration.
[2016-09-30 17:53] LABS: BASOPHILS % (AUTO) 0.4 % (0-3); EOSINOPHILS % (AUTO) 2.2 % (0-5); MONOCYTES % (AUTO) 9.3 % (4-12); Mean Corpuscular Hemoglobin 32.5 pg (27.0-35.0); Mean Corpuscular Volume 99.7 fL (81-100); NEUTROPHILS % (AUTO) 72.9 % (40-74); Platelet Count 238 bil/L (150-400)
--- NOTE | 2016-09-30 17:57 | PCM.HPMED ---
Subjective Date of Service September 30, 2016 Primary Provider: Admitting Physician: Juan Antonio Salgado MD Primary Care Physician: Gabriella Horn MD Attending Physician: Juan Antonio Salgado MD Chief Complaint: documented UTI History of Present Illness: 71yo F w/ multiple comorbidities including Crohn's Disease s/p Colectomy at age11 and multiple surgeries for SBO, ESRD on HD, DM2, HTN, Afib on Plavix, recurrent UTI, follow up in the past pt was sent from today from dialysis center due to documented UTI, urinary complaints. pt stated that about 9days ago, she started having severe burning, frequent urination, urgency, incomplete emptying or urine, came to ED 5days ago, 09/25 UCX was done, received Rocephin, CT abd/pelvis was done and sent home with keflex, which pt took until she came today, However, next day on 09/26, pt had chills, fever of 101, nausea started, abdominal pain, dysuria got worse. pt noted kimberley of brown discharge came out from vagina and in urine, which irritated and caused marked pain. Symptoms were on and off during this course, pt was able to eat intermittently, but limited due to nausea, pt came to dialysis 2days ago and today as scheduled, compliant to all of her meds including abx. Patient was seen by yesterday, was told that patient likely needs surgery to fix multiple fistula, coordinated with surgeons. CT abd pelvis on 09/25 showed Decompressed bladder however surrounding inflammatory fat stranding, suggestive of cystitis, UCX 09/25 showed Klebsiella, Enterococcus, patient was given vanc1.25g, cefepime today during dialysis per , sent to hospital given persistent UTI, possible fistulae Review of Systems: Pertinent positives as noted in history of present illness. All other systems were reviewed and are negative Allergies Coded Allergies: Penicillins (Verified Allergy, Severe, Anaphylaxis, 09/25/16) Sulfa (Sulfonamide Antibiotics) (Verified Allergy, Severe, ANAPHYLAXIS, ) NSAIDS (Non-Steroidal Anti-Inflamma (Verified Allergy, Intermediate, " HARD ON KIDNEYS", 09/25/16) morphine (Verified Allergy, Intermediate, "goes crazy", 09/25/16) aspirin (Verified Allergy, Unknown, tongue swells, 09/25/16) heparin (Verified Allergy, Unknown, HEPARIN INDUCED THROMBOCYTOPENIA, 09/25) HIT latex (Verified Allergy, Unknown, weeping rash, 09/25/16) Uncoded Allergies: CHLORAPREP (Allergy, Severe, rash/itching, 01/08/16) weeping rash Foam Dressing (Allergy, Severe, Hives, 10/09/13) Deep redness, pain, and swelling to skin occurs when foam dressing is used. PMH PMH History of Crohn's disease. Status post total colectomy and ileostomy, treated with Remicade infusion once a month, and followed by Dr. Kim. ESRD following cardiac arrest, on T, Th, and Sat dialysis History of recurrent small bowel obstructions and adhesions History of subdural hematoma. History of heparin-induced thrombocytopenia. History of abdominal wall cellulitis with MRSA, finished a course of IV vancomycin History of TIA, left sided weakness Does not drive due to chronic vertigo Hx cardiac arrest during abd surgery, most recent hospitalization with chest pain in Aug, ruled out ACS discharged with plan for Lexiscan outpatient. Diabetes mellitus, GERD, Hypertension, Stroke Atrial fibrillation, Depression Osteoarthritis RLS Surgical History Bowel resection Ileostomy Colectomy Multiple surgeries for SBO Cholecystectomy Evacuation of subdural hematoma Family History Father: , HTN, stroke, CAD, CABG, [place] Mother: , HTN, Stroke, CAD Social History Hx Alcohol Use: No Hx Substance Use: No Hx Tobacco Use: No Smoking Status: Former Smoker Exam Exam NAD, comfortably laying down on the bed no JVD, MMM, no LAD RRR, nl s1, s2 no mrg CTAB, no w,c S,post surgical/s/p MRSA skin infection scars, ND, diffuse tenderness, hypoactive BS+, no CVAT warm, no edema, pulses 2/2 Lab and Diagnostics X-Rays, CTs and MRIs PROCEDURE: CT ABDOMEN AND PELVIS WITHOUT CONTRAST ([id number]) INDICATIONS: lower abdominal pain TECHNIQUE: Noncontrast 5 mm thick sections acquired from the diaphragms to the symphysis. 5 mm coronal and sagittal reformats were then performed. For radiation dose reduction, the following was used: automated exposure control, adjustment of mA and/or kV according to patient size. COMPARISON: [facility], CT, CT ABD PELVIS WO CON, 10/03/2015, 19:56. FINDINGS: Image quality: Excellent. ABDOMEN: Bibasilar scarring/atelectasis. Grossly unchanged 6 mm nodule seen in the right lung base on image 3 is unchanged since 10/03/15. Heart normal size. There coronary artery calcifications. Unenhanced liver grossly unremarkable. There is midline upper anterior abdominal wall laxity. Spleen unremarkable. Gallbladder surgically absent. No biliary ductal dilatation. Pancreas and adrenal glands within normal limits. Bilateral renal cortical scarring and atrophy. There is a exophytic right renal cyst which is also unchanged. Peritoneum and bowel: No evidence of bowel obstruction. Postsurgical changes related to presumed cholectomy, and left lower quadrant ostomy. No free fluid or air. Nodes and vessels: No retroperitoneal or mesenteric adenopathy by size criteria. Aorta and inferior vena cava are normal in caliber. Miscellaneous: There is midline laxity of the lower abdominal wall PELVIS: Genitourinary: Bladder is decompressed therefore grossly unremarkable however there is surrounding inflammatory fat stranding Miscellaneous: No inguinal hernias or adenopathy. Bones: No suspicious bony lesions. No vertebral body compression fractures. IMPRESSION: Decompressed bladder however surrounding inflammatory fat stranding and possible wall thickening raising the possibility of cystitis. Please correlate clinically and with urinalysis data. Elsewhere, no acute abnormality or interval change. Dictated by: Charlie Lacy M.D. on 09/25/2016 at 20:41 Approved by: Charlie Lacy M.D. on 09/25/2016 at 20:47 Assessment & Plan Acute, active documented UTI, POA, due to Enterococcus/Klebsiella, concerning for colovesical , colovaginal fistula. not apparent on recent CT abd/pelvis. no SIRS, labs in progress, -will medically manage for now, get consult from ELIE, input, Gen surg tomorrow, given complicated hx of abdominal surgery previous fistula, Crohn 's, patient may need to be transferred to tertiary hospital. This was briefly discussed with patient. appreciate surgical service opinions. -s/p vancomycin, cefepime in dialysis center, based on culture sensitivity, will continue quinolone, Levaquin, renally adjusted, appreciate ID input, requested by -no IVF, no s/s of sepsis, monitor v/s, trends fever curve, -will get baseline labs, BCX Chronic, stable #ESRD, POA, on HD T,Th,Sat, To continue her usual hemodialysis schedule #Paroxysmal AFib, POA, continue Plavix 75mg daily; metoprolol #Diabetes Mellitus type 2, POA, diet controlled, #History of Crohn's disease. Status post total colectomy and ileostomy, s/p Remicade infusion once a month, currently not on meds, followed by Dr. Kim. #History of heparin-induced thrombocytopenia. DVT prophylaxis will be SCDs and she is on Plavix. #Hyperparathyroidism, POA, stable, Continue home doses of Cinacalcet and Sevelamer #Depression, POA, stable, continue fluoxetine 40mg PO qam #Pruritis, POA, ongoing, Continue Hydroxyzine 25mg PO QID PRN #Hyperlipidemia, POA, stable, continue Atorvastatin 40mg PO qhs #Insomnia, POA, continue Zolpidem Tartrate 5mg #RLS, POA, stable, continue Ropinirole 2mg PO qhs #Chronic right hip pain secondary to OA, POA. -continue Oxycodone 5mg PO q6h PRN -continue Gabapentin 900mg PO TID -continue Leflunomide 20mg PO qhs dispo:Patient will be admitted with inpatient status with expectation of inpatient therapy for more than 2 midnights diet:renal dvt ppx:HSQ Full code Time spent 65 minutes Juan Antonio Salgado MD September 30, 2016 17:01
[2016-09-30] MEDS ORDERED: hydrOXYzine Pamoate 25 mg Capsule PO PRN (18:00)
[2016-09-30] MEDS ORDERED: Levofloxacin 750 mg/150 mL D5W IV ONE (18:00)
[2016-09-30] MEDS ORDERED: 0.9% Sodium Chloride 250 ML ONE (18:14)
[2016-09-30 18:20] LABS: Magnesium 1.4 mg/dL (1.6-2.6)
[2016-09-30 18:52] VITALS: PULSE 88
--- NOTE | 2016-09-30 19:32 | NUR ---
Pain PRN Tylenol ineffective pain control. PRN Oxycodone given with effective results. Report given to on coming nurse r/t ileostomy to right side and fistula to left arm for dialysis. IV ABO infusing as ordered with no adverse effects so far.
[2016-09-30 20:15] VITALS: BP 119/76; PULSE 84; RESP 19; O2SAT 96
[2016-09-30] MEDS ORDERED: Ciprofloxacin Inj 400 MG in IV Premix 1 EACH IV SCH (20:30)
--- NOTE | 2016-09-30 22:06 | NUR ---
DIARRHEA On assessment, pt reports she often has side effects from Levaquin including diarrhea and joint pain. Pt at this time requesting antidiarrheal. Paged Dr. Martinez. Called back--must get negative c. diff results before starting Imodium. Will discuss with pt. Addendum: 10/01/16 at 0112 by KINZA MARTIN RN Explained precautions to pt and need to obtain stool. Pt agreeable to collect stool and report to nursing.
[2016-10-01] VITALS (8 sets, daily range): BP systolic 101–115; BP diastolic 60–71; PULSE 75–108; RESP 16–18; O2SAT 95–96
--- NOTE | 2016-10-01 01:30 | NUR ---
ISOLATION Pt on enteric precautions for c. diff r/o. Pt aware.
[2016-10-01] MEDS ORDERED: HYDROmorphone 1 mg/mL Inj IVPUSH ONE (04:00)
[2016-10-01 06:52] LABS: BASOPHILS % (AUTO) 0.5 % (0-3); EOSINOPHILS % (AUTO) 2.8 % (0-5); MONOCYTES % (AUTO) 7.5 % (4-12); Mean Corpuscular Hemoglobin 32.2 pg (27.0-35.0); Mean Corpuscular Volume 99.1 fL (81-100); NEUTROPHILS % (AUTO) 68.8 % (40-74); Platelet Count 260 bil/L (150-400)
[2016-10-01 07:14] LABS: Magnesium 1.4 mg/dL (1.6-2.6)
[2016-10-01] MEDS ORDERED: Magnesium Sulf 2 Gm/50mL Water 2 GM in IV Premix 1 EACH IV ONE (07:50)
[2016-10-01] MEDS: Lanthanum Carbonate 500 mg Chewable Tablet PO SCH ×3 (08:20→17:28)
[2016-10-01] MEDS ORDERED: Levofloxacin 750 mg/150 mL D5W IV SCH (08:30)
--- NOTE | 2016-10-01 12:19 | PCM.PNMED ---
Subjective Date of Service October 01, 2016 Subjective Patient notes worsening discharge from vaginal region and history of fistula. Did see urology 2 days ago who had planned some sort of bladder procedure, patient was unaware of name. Currently being treated for UTI and has not been evaluated by surgery yet for her colovaginal fistula. Denies fever chills, shortness of breath or chest pain Exam Vital Signs Vital Sign - Last Date Time Temp Pulse Resp B/P Pulse Ox O2 Delivery O2 Flow Rate FiO2 10/01/16 11:46 37.0 93 16 102/68 95 Room Air Intake and Output 09/30/16 09/30/16 10/01/16 Cumulative From/Thru 15:00 23:00 07:00 09/30/16 20:15 - 10/01/16 05:54 Intake Total 1083 ml 1083 ml Output Total 120 ml 120 ml Balance 963 ml 963 ml Intake Oral 960 ml 960 ml IV Total 123 ml 123 ml Output Stool Total 120 ml 120 ml Exam NAD, comfortably laying down on the bed no JVD, MMM, no LAD RRR, nl s1, s2 no mrg CTAB, no w,c S,post surgical/s/p MRSA skin infection scars, ND, diffuse tenderness, hypoactive BS+, no CVAT warm, no edema, pulses 2/2 Normal affect and mood No focal neurologic deficits, cranial nerve II through XII grossly intact IVs and Medications Medications Reviewed: Medications were reviewed in detail Lab and Diagnostics Result Diagram: 10/01/1662110/01/16621 X-Rays, CTs and MRIs PROCEDURE: CT ABDOMEN AND PELVIS WITHOUT CONTRAST (PNL-7104) INDICATIONS: lower abdominal pain TECHNIQUE: Noncontrast 5 mm thick sections acquired from the diaphragms to the symphysis. 5 mm coronal and sagittal reformats were then performed. For radiation dose reduction, the following was used: automated exposure control, adjustment of mA and/or kV according to patient size. COMPARISON: [facility], CT, CT ABD PELVIS WO CON, 10/03/2015, 19:56. FINDINGS: Image quality: Excellent. ABDOMEN: Bibasilar scarring/atelectasis. Grossly unchanged 6 mm nodule seen in the right lung base on image 3 is unchanged since 10/03/15. Heart normal size. There coronary artery calcifications. Unenhanced liver grossly unremarkable. There is midline upper anterior abdominal wall laxity. Spleen unremarkable. Gallbladder surgically absent. No biliary ductal dilatation. Pancreas and adrenal glands within normal limits. Bilateral renal cortical scarring and atrophy. There is a exophytic right renal cyst which is also unchanged. Peritoneum and bowel: No evidence of bowel obstruction. Postsurgical changes related to presumed cholectomy, and left lower quadrant ostomy. No free fluid or air. Nodes and vessels: No retroperitoneal or mesenteric adenopathy by size criteria. Aorta and inferior vena cava are normal in caliber. Miscellaneous: There is midline laxity of the lower abdominal wall PELVIS: Genitourinary: Bladder is decompressed therefore grossly unremarkable however there is surrounding inflammatory fat stranding Miscellaneous: No inguinal hernias or adenopathy. Bones: No suspicious bony lesions. No vertebral body compression fractures. IMPRESSION: Decompressed bladder however surrounding inflammatory fat stranding and possible wall thickening raising the possibility of cystitis. Please correlate clinically and with urinalysis data. Elsewhere, no acute abnormality or interval change. Dictated by: Charlie Lacy M.D. on 09/25/2016 at 20:41 Approved by: Charlie Lacy M.D. on 09/25/2016 at 20:47 Assessment & Plan Acute, active acute UTI, POA, due to Enterococcus/Klebsiella, concerning for colovesical, colovaginal fistula. not apparent on recent CT abd/pelvis. no SIRS, labs in progress, -will medically manage for now, has been seen in the outpatient setting by urologist, - Gen surg consulted today, appreciate recommendations given complicated hx of abdominal surgery previous fistula, Crohn's, patient may need to be transferred to tertiary hospital. -s/p vancomycin, cefepime in dialysis center, based on culture sensitivity, will continue quinolone, Levaquin, renally adjusted, appreciate ID input, requested by -no IVF, no s/s of sepsis, monitor v/s, trends fever curve, -will get baseline labs, BCX Chronic, stable #ESRD, POA, on HD T,,Sat, To continue her usual hemodialysis schedule #Paroxysmal AFib, POA, continue Plavix 75mg daily; metoprolol #Diabetes Mellitus type 2, POA, diet controlled, #History of Crohn's disease. Status post total colectomy and ileostomy, s/p Remicade infusion once a month, currently not on meds, followed by Dr. Kim. #History of heparin-induced thrombocytopenia. DVT prophylaxis will be SCDs and she is on Plavix. #Hyperparathyroidism, POA, stable, Continue home doses of Cinacalcet and Sevelamer #Depression, POA, stable, continue fluoxetine 40mg PO qam #Pruritis, POA, ongoing, Continue Hydroxyzine 25mg PO QID PRN #Hyperlipidemia, POA, stable, continue Atorvastatin 40mg PO qhs #Insomnia, POA, continue Zolpidem Tartrate 5mg #RLS, POA, stable, continue Ropinirole 2mg PO qhs #Chronic right hip pain secondary to OA, POA. -continue Oxycodone 5mg PO q6h PRN -continue Gabapentin 900mg PO TID -continue Leflunomide 20mg PO qhs dispo:Patient will be admitted with inpatient status with expectation of inpatient therapy for more than 2 midnights diet:renal dvt ppx: Noted heparin allergy, ambulate for now Full code Pain Evaluation: Adequate Pain Control Time spent 35 minutes spent with evaluation and management and coordination of care Zhang Hogan DO October 01, 2016 12:19
[2016-10-01] MEDS ORDERED: Polyethylene Glycol (PEG) 17 Gm Powder PO PRN (12:20)
[2016-10-01] MEDS ORDERED: HYDROmorphone 0.5 mg/0.5 mL iSecure Syringe IVPUSH PRN (14:00)
[2016-10-01] MEDS: HYDROmorphone 1 mg/mL Inj IVPUSH PRN ×2 (15:48→21:56)
--- NOTE | 2016-10-01 16:11 | NUR ---
per patient i am not making urine due to ESKD Addendum: 10/01/16 at 1611 by BREANN CASE RN Amended: Links added.
--- NOTE | 2016-10-01 17:53 | NUR ---
Pain Patient is alert and oriented X3. Able to make needs known. Pain 8/ Addendum: 10/01/16 at 1801 by BREANN CASE RN Pain Pain 8/ to abdomen and back. PRN Oxycodone given as ordered with effective results. patient had shower today and meals at bed side. tolerating PO and meals with difficulty swallowing. Stool sample negative for C-diff. Dr. Hogan aware. patient is no longer on enteric precautions. per Tele SR 80. call light with in reach for safety. stable mood. Surgeon at bed side and spoke to the patient. per patient dialysis tomorrow morning. Continue to monitor vital signs, pain, and safety.
--- NOTE | 2016-10-01 20:38 | CONS ---
[address] [address] CONSULTATION REPORT PATIENT: JYOTSNA MORALEZ : 1945 MR#: [id number] ADMIT: 09/30/2016 JOB ID: [id number] NEPHROLOGY CONSULTATION: DATE OF SERVICE: 10/01/2016 REQUESTING PHYSICIAN: Zhang Hogan MD REASON FOR CONSULTATION: Management of end-stage renal disease. CHIEF COMPLAINT: Dysuria and vaginal discharge. PRESENT ILLNESS: This is a very pleasant, 71-year-old lady who is well-known to Renal service with past medical history of end-stage renal disease, Crohn disease, status post total colectomy and ileostomy, history of TIA, hypertension, type 2 diabetes, renal osteodystrophy, and anemia of chronic kidney disease, who presented to the hospital with complaint of dysuria and vaginal discharge. The patient reported that she started having dysuria and urgency and frequency, nine days ago. The patient later on came to the emergency department on September 28, 2016. She received Rocephin and sent home with oral Keflex. The patient reported no improvement. She rather developed temperature. She stated that she noticed brownish discharge from the vagina. She stated that it smells like fecal material. The patient was evaluated by Dr. Bishop on September 29. She was told that she may have a fistula and will need further repair. The patient received dialysis yesterday. She received vancomycin 1.25 g and 1 g of cefepime [facility] prescribed by Dr. Burch. The patient later on was sent to the hospital for direct admit due to concern of enterovaginal fistula. She is not certain whether she has pneumaturia. However she noticed some air came out from the vagina while she was urinating. Last night she received IV levofloxacin. She has not had any temperature overnight. PAST MEDICAL HISTORY: 1. End-stage renal disease, on hemodialysis every Tuesday, , Tuesday. 2. Crohn disease, status post colectomy with ileostomy. 3. Type 2 diabetes. 4. Hypertension with hypertensive nephrosclerosis. 5. Atrial fibrillation. 6. Anemia of chronic kidney disease. 7. Renal osteodystrophy. 8. History of recurrent small-bowel obstruction and adhesions. 9. History of subdural hematoma. 10. Heparin-induced thrombocytopenia. 11. History of septic shock. 12. History of MRSA infection related to dialysis catheter. 13. History of pneumonia complicated by empyema, required chest tube placement. PAST SURGICAL HISTORY: 1. Status post right ileostomy and colectomy. 2. History of cholecystectomy. 3. Right tunneled catheter for dialysis placement x2. 4. Left upper arm fistula placement. 5. Left basilic venous fistula transposition in January 2016. SOCIAL HISTORY: Denies current use of alcohol, tobacco, or illicit drugs. ALLERGIES: 1. PENICILLIN. 2. SULFA. 3. ASPIRIN. 4. NSAIDS. 5. HEPARIN. 6. LATEX. 7. MORPHINE. 8. CHLORAPREP. 9. FOAM DRESSING. FAMILY HISTORY: Positive for hypertension, stroke and coronary artery disease in the family. REVIEW OF SYSTEMS: Fourteen point review of systems was performed. PHYSICAL EXAMINATION: Vitals: Temperature 37.0, pulse 93, respiratory 16, blood pressure 102/68, O2 sat 95% on room air. General appearance: Awake, alert and oriented x3. In no acute distress. HEENT: No pallor. No jaundice. No JVD. No lymphadenopathy. No thyroid enlargement. PERRLA: Atraumatic. Moist mucous membranes. Heart: Regular rhythm. Normal S1, S2. No murmur, rubs or gallops. Lungs clear to auscultation bilaterally. No wheezing. No rhonchi. Abdomen: Soft. Mild tenderness on the suprapubic area. Ileostomy in place. Surgical scar noted at the midline which is dry, clean and intact. Extremities: No edema, cyanosis or clubbing of the fingers. Left AV fistula with good thrill. LABORATORY DATA: WBC 9.5, hemoglobin 10.8. Sodium 129, potassium 4.4, chloride 82, bicarb 27, BUN 31, creatinine 4.39. Phosphorus 6.0. Magnesium 1.4. CAT scan on September 25 showed decompressed bladder, surrounding inflammatory fat stranding and possible wall thickening raising the possibility of cystitis. Ultrasound duplex of dialysis shunt performed on September 29 showed brachial artery to basilic vein fistula with hemodynamically significant narrowing; greatest in the proximal and mid portions of the fistula. ASSESSMENT: 1. Complicated urinary tract infection. 2. Enterovesical and enterovaginal fistula. 3. Left arteriovenous fistula stenosis. 4. End-stage renal disease, on hemodialysis every Tuesday, , Tuesday. 5. Type 2 diabetes with renal manifestation. 6. Hypertension with hypertensive nephrosclerosis. 7. History of Crohn disease, status post colectomy and ileostomy. PLAN: 1. Per Renal standpoint, she will require dialysis in the morning. 2. Pending input from the general surgeon. 3. Continue IV antibiotics per sensitivity. 4. Consider echocardiogram to rule out endocarditis. 5. Will consult Interventional Radiology for angioplasty of the left arteriovenous fistula stenosis. Thank you for allowing me to participate in the care of your patient. We will monitor along with you. LATONIA
[2016-10-01] MEDS: levoFLOXacin Inj 500 MG in IV Premix 1 EACH IV SCH (21:28)
[2016-10-02] VITALS (9 sets, daily range): BP systolic 93–126; BP diastolic 53–88; PULSE 74–84; RESP 16–18; O2SAT 94–96
[2016-10-02] MEDS: HYDROmorphone 1 mg/mL Inj IVPUSH PRN ×5 (03:54→21:02)
--- NOTE | 2016-10-02 04:50 | NUR ---
Shift Note Pt. alert and responsive, uses call light appropriately, pain managed by prn oxycodone and dilaudid, denies N/V, able to sleep well, vitals stable, call light in reach, hourly rounds, all needs attended and will continue to monitor.
--- NOTE | 2016-10-02 07:07 | CONS ---
[address] [address] CONSULTATION REPORT PATIENT: JYOTSNA MORALEZ : 1945 MR#: [id number] ADMIT: 09/30/2016 JOB ID: [id number] DATE OF SERVICE: 10/01/2016 CONSULTATION REQUESTED BY: Zhang Hogan MD and by Norbert Burch DO REASON FOR CONSULTATION: Enterovaginal fistula. HISTORY: The patient is a 71-year-old female with a very complex past abdominal surgical history. Her primary diagnosis is Crohn's disease. That was diagnosed as a child and at age 11 by her history, she had a total abdominal and perineal proctocolectomy. Obviously, she had an ileostomy. She has had multiple operations in the intervening time, from bowel obstructions and she has had resections and then in 2008 by history, she presented septic to the hospital in [place], [place], underwent an emergent operation and was hospitalized ultimately at [facility] in [place] until after [place]. She developed a vaginal fistula at that time. She was seen at one time by Dr. Colin Clancy at [facility]. He actually declined an operation for her because she was doing well medically, but in the last week, she has developed significant fecal drainage per her vagina. She has also developed a polymicrobial urinary tract infection. She has significant pelvic and perineal pain. She also has end-stage renal failure and was dialyzed on Tuesday, , Tuesday. With her last operation in 2008, she developed an MRSA infection and had an open wound and subsequent hernia. It was after this that she was seen by Dr. Clancy who recommended at that time no operation. She is stooling up to five times a day through her vagina which is causing obvious local pain and discomfort. She says she cannot go on living the way she is. PAST MEDICAL HISTORY: Illnesses: 1. Crohn's disease. 2. End-stage renal failure on dialysis. 3. History of cardiac arrest. 4. History of recurrent small bowel obstructions. 5. History of subdural hematoma. 6. History of heparin-induced thrombocytopenia. 7. Open abdomen and MRSA. 8. Incisional hernia. 9. History of TIA. 10. Diabetes mellitus. 11. GERD. 12. Hypertension. 13. History of atrial fibrillation. 14. Depression. 15. Osteoarthritis. OPERATIONS: Twenty-two abdominal operations for a total abdominoperineal proctocolectomy, small-bowel resection, lysis of adhesions, cholecystectomy. She has also had evacuation of subdural hematoma. SOCIAL HISTORY: She is and got remarried a year ago. REVIEW OF SYSTEMS: Otherwise negative. PHYSICAL EXAMINATION: Alert, no distress. BMI 29. Temperature is 37.1, brachial blood pressure 101/60, pulse 75, respiratory rate 16, O2 sat 96% on room air. HEENT: Nonjaundiced. PERRLA. EOMI. Neck: No masses. Lungs: Clear. Cardiac exam: Regular rhythm. Abdomen: Multiple incisions. She has a large incisional hernia. She has a left end ileostomy, former right-sided ileostomy. She has no abdominal tenderness. No peritoneal signs. Extremities: She has a left upper arm arteriovenous fistula which is her dialysis access. Skin: No anterior abdominal wall rashes. Neurologic exam: Appropriate affect. Moves all extremities. Gait is not tested. No obvious cranial nerve deficits. DIAGNOSTIC STUDIES: CT scan is personally reviewed by myself and discussed with Dr. Charlie Lacy. She does have air in her vagina on her CT scan. There is no air seen in her bladder. IMPRESSION: Enterovaginal fistula. This is actually an old problem, it first occurred eight years ago, but it has broken through her treatment with Remicade which is being done by Dr. Kim. She does not want to continue with an enterovaginal fistula; although operating up on her would be a very dangerous event. I explained this to her. I have recommended to her that I speak with Dr. Clancy to see which of his colleagues would be best suited to do this operation. It also would be reasonable and appropriate to get her to be seen by Dr. Kim and to see if anything different can be done medically. I also think that it might benefit her just from a symptomatic perspective that her diet be simplified to clear liquids and that she be started on TPN. This will decrease the vaginal drainage. That may allow some temporizing also prior to surgery. This is a very complex patient with at a minimum a very hostile abdomen and an operative intervention is definitely fraught with danger. I explained this to her and I certainly understand this, has no interest in continuing to have this current problem. Thank you for asking me to see her.
[2016-10-02] MEDS: Lanthanum Carbonate 500 mg Chewable Tablet PO SCH ×3 (08:40→17:20)
--- NOTE | 2016-10-02 12:44 | PCM.PNSURG ---
Subjective Visit Information: Reason for Visit Pyelonephritis/Vesical Colonic Fistula Surgery/Surgery Date Post-Op Day # Date of Admission: September 30, 2016 at 16:44 Hospital Day # Subjective: currently receiving hemodialysis; c/o some nausea, no vomiting, baseline abd pain, enterovaginal fistula since 2008, 22 prior operations Objective Objective Lying down in bed receiving hemodialysis Abd: soft, benign Vital Sign- Last 8 Hours Date Time Temp Pulse Resp B/P Pulse Ox O2 Delivery O2 Flow Rate FiO2 10/02/16 11:59 74 16 93/55 95 Room Air 10/02/16 08:08 37.0 75 16 117/70 95 Room Air 10/02/16 08:00 78 10/02/16 05:55 36.9 82 18 101/88 95 Room Air 10/02/16 05:47 75 Intake and Output- Last 8 Hour 10/02/16 Cumulative From/Thru 07:00 09/30/16 20:15 - 10/02/16 05:55 Intake Total 550 ml 2633 ml Output Total 50 ml 170 ml Balance 500 ml 2463 ml Intake Oral 500 ml 2360 ml IV Total 50 ml 273 ml Output Urine Total 0 ml Stool Total 120 ml Other 50 ml 50 ml # Bowel Movements 3 Result Diagram: 10/01/16 0622 10/02/16 0820 Assessment & Plan Impression Dialysis pt Enterovaginal fistula Crohn's Hx of subdural hematoma Problems: Plan Recommend transfer to tertiary care center in [place] Dialysis prn Perhaps get Dr. Kim's input re: Crohn's medical management James Araujo MD October 02, 2016 12:44
--- NOTE | 2016-10-02 13:02 | PCM.PNNEPH ---
Subjective Date of Service October 02, 2016 Subjective Patient is seen during dialysis. Blood pressure is on the low side. She remains having dysuria or and vaginal discharged. She is somewhat nauseated no vomiting. Her sodium level was 117 this morning. She consumed 96 oz of ice chips yesterday. She was evaluated by surgical team. Exam Vital Signs Vital Sign - Last Date Time Temp Pulse Resp B/P Pulse Ox O2 Delivery O2 Flow Rate FiO2 10/02/16 11:59 74 16 93/55 95 Room Air 10/02/16 08:08 37.0 Intake and Output 10/01/16 10/01/16 10/02/16 Cumulative From/Thru 15:00 23:00 07:00 09/30/16 20:15 - 10/02/16 05:55 Intake Total 1000 ml 550 ml 2633 ml Output Total 0 ml 50 ml 170 ml Balance 1000 ml 500 ml 2463 ml Intake Oral 900 ml 500 ml 2360 ml IV Total 100 ml 50 ml 273 ml Output Urine Total 0 ml 0 ml Stool Total 120 ml Other 50 ml 50 ml # Bowel Movements 3 3 Exam General appearance: Awake, alert and oriented x3. In no acute distress. HEENT: No pallor. No jaundice. No JVD. No lymphadenopathy. No thyroid enlargement. PERRLA: Atraumatic. Moist mucous membranes. Heart: Regular rhythm. Normal S1, S2. Systolic murmur noted, no rubs or gallops. Lungs clear to auscultation bilaterally. No wheezing. No rhonchi. Abdomen: Soft. Mild tenderness on the suprapubic area and RLQ. Ileostomy in place. Surgical scar noted at the midline which is dry, clean and intact. Extremities: No edema, cyanosis or clubbing of the fingers. Left AV fistula with good thrill. Lab and Diagnostics Result Diagram: 10/01/16 0622 10/02/16 0820 X-Rays, CTs and MRIs PROCEDURE: CT ABDOMEN AND PELVIS WITHOUT CONTRAST ([id number]-7104) INDICATIONS: lower abdominal pain TECHNIQUE: Noncontrast 5 mm thick sections acquired from the diaphragms to the symphysis. 5 mm coronal and sagittal reformats were then performed. For radiation dose reduction, the following was used: automated exposure control, adjustment of mA and/or kV according to patient size. COMPARISON: [facility], CT, CT ABD PELVIS WO CON, 10/03/2015, 19:56. FINDINGS: Image quality: Excellent. ABDOMEN: Bibasilar scarring/atelectasis. Grossly unchanged 6 mm nodule seen in the right lung base on image 3 is unchanged since 10/03/15. Heart normal size. There coronary artery calcifications. Unenhanced liver grossly unremarkable. There is midline upper anterior abdominal wall laxity. Spleen unremarkable. Gallbladder surgically absent. No biliary ductal dilatation. Pancreas and adrenal glands within normal limits. Bilateral renal cortical scarring and atrophy. There is a exophytic right renal cyst which is also unchanged. Peritoneum and bowel: No evidence of bowel obstruction. Postsurgical changes related to presumed cholectomy, and left lower quadrant ostomy. No free fluid or air. Nodes and vessels: No retroperitoneal or mesenteric adenopathy by size criteria. Aorta and inferior vena cava are normal in caliber. Miscellaneous: There is midline laxity of the lower abdominal wall PELVIS: Genitourinary: Bladder is decompressed therefore grossly unremarkable however there is surrounding inflammatory fat stranding Miscellaneous: No inguinal hernias or adenopathy. Bones: No suspicious bony lesions. No vertebral body compression fractures. IMPRESSION: Decompressed bladder however surrounding inflammatory fat stranding and possible wall thickening raising the possibility of cystitis. Please correlate clinically and with urinalysis data. Elsewhere, no acute abnormality or interval change. Dictated by: Charlie Lacy M.D. on 09/25/2016 at 20:41 Approved by: Charlie Lacy M.D. on 09/25/2016 at 20:47 Plan Impression 1. Complicated urinary tract infection. Enterococcus, Klebsiella. 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 4. End-stage renal disease, on hemodialysis every Tuesday, , Tuesday. 4 hours, 3 potassium, 35 bicarbonate, revaclear. Ultrafiltration and 2 L, dialysate flow rate 600, blood flow rate 400, left AV fistula 5. Dilutional hyponatremia. 6. Type 2 diabetes with renal manifestation. 7. Hypertension with hypertensive nephrosclerosis. 8. History of Crohn disease, status post colectomy and ileostomy. Plan: - Recommend fluid restriction 1.5 L per day. - Pending to be transferred to a tertiary care in [place]. - Next dialysis on Tuesday. Simon Radford MD October 02, 2016 13:02
--- NOTE | 2016-10-02 14:05 | NUR ---
Dialysis note: 4 hr tx Net UF 1400. Accessed left UA fistula, 16 g needles, alcohol to disinfect. Heparin held r/t hx of thrombocytopenia. Pt has orders at [facility] [place] to continue UF with SBA 88 or above. Hypotensive episode during tx, 74/37 HR 79. O2 on 2 L and then up to 3.5 L, trendelenberg, a total of 500 mL NS given over 30 min. Pt was aroused and communicated clearly throughout episode. Pt was cautioned re: ice chips r/t sodium level of 117. Stat BMP drawn at end of tx to recheck Na level post dialysis. After blood was returned and clamps were on the pt requested to use the restroom r/t extremely full ostomy bag. sitting BP 107/83 HR 73, 2 person assist to restroom. Pt denied light headedness. Bed linens and gown changed. Pt returned to room stable, report given to primary RN, Josi. Please see DTR for complete record of VS.
--- NOTE | 2016-10-02 14:46 | PCM.PNMED ---
Subjective Date of Service October 02, 2016 Subjective She is seen today to follow up the CKD/ESRD, Afib, UTI and Colovaginal fistula. She is distracted and unfocused. She is challenging to engage. She says that Dr. Gonzales told her yesterday that she will be having surgery soon. Exam Vital Signs Vital Sign - Last Date Time Temp Pulse Resp B/P Pulse Ox O2 Delivery O2 Flow Rate FiO2 10/02/16 11:59 74 16 93/55 95 Room Air 10/02/16 08:08 37.0 Intake and Output 10/01/16 10/01/16 10/02/16 Cumulative From/Thru 15:00 23:00 07:00 09/30/16 20:15 - 10/02/16 05:55 Intake Total 1000 ml 550 ml 2633 ml Output Total 0 ml 50 ml 170 ml Balance 1000 ml 500 ml 2463 ml Intake Oral 900 ml 500 ml 2360 ml IV Total 100 ml 50 ml 273 ml Output Urine Total 0 ml 0 ml Stool Total 120 ml Other 50 ml 50 ml # Bowel Movements 3 3 Exam Heart: RRR with a 1/6 MILES Lungs: CTAB Abdomen: Not tender, Bowel sounds are normal. Soft and no organomegaly Ext: No ankle edema. Lab and Diagnostics Result Diagram: 10/01/16 0622 10/02/16 0820 X-Rays, CTs and MRIs PROCEDURE: CT ABDOMEN AND PELVIS WITHOUT CONTRAST ([id number]) INDICATIONS: lower abdominal pain TECHNIQUE: Noncontrast 5 mm thick sections acquired from the diaphragms to the symphysis. 5 mm coronal and sagittal reformats were then performed. For radiation dose reduction, the following was used: automated exposure control, adjustment of mA and/or kV according to patient size. COMPARISON: [facility], CT, CT ABD PELVIS WO CON, 10/03/2015, 19:56. FINDINGS: Image quality: Excellent. ABDOMEN: Bibasilar scarring/atelectasis. Grossly unchanged 6 mm nodule seen in the right lung base on image 3 is unchanged since 10/03/15. Heart normal size. There coronary artery calcifications. Unenhanced liver grossly unremarkable. There is midline upper anterior abdominal wall laxity. Spleen unremarkable. Gallbladder surgically absent. No biliary ductal dilatation. Pancreas and adrenal glands within normal limits. Bilateral renal cortical scarring and atrophy. There is a exophytic right renal cyst which is also unchanged. Peritoneum and bowel: No evidence of bowel obstruction. Postsurgical changes related to presumed cholectomy, and left lower quadrant ostomy. No free fluid or air. Nodes and vessels: No retroperitoneal or mesenteric adenopathy by size criteria. Aorta and inferior vena cava are normal in caliber. Miscellaneous: There is midline laxity of the lower abdominal wall PELVIS: Genitourinary: Bladder is decompressed therefore grossly unremarkable however there is surrounding inflammatory fat stranding Miscellaneous: No inguinal hernias or adenopathy. Bones: No suspicious bony lesions. No vertebral body compression fractures. IMPRESSION: Decompressed bladder however surrounding inflammatory fat stranding and possible wall thickening raising the possibility of cystitis. Please correlate clinically and with urinalysis data. Elsewhere, no acute abnormality or interval change. Dictated by: Charlie Lacy M.D. on 09/25/2016 at 20:41 Approved by: Charlie Lacy M.D. on 09/25/2016 at 20:47 Assessment & Plan Acute, active acute UTI, POA, due to Enterococcus/Klebsiella, concerning for colovesical, colovaginal fistula. not apparent on recent CT abd/pelvis. -will medically manage for now, has been seen by Julieth Godfrey and Dr. Gonzales. - Gen surg consulted yesterday, appreciate recommendations given complicated hx of abdominal surgery previous fistula, Crohn's, patient may need to be transferred to tertiary hospital. -s/p vancomycin, cefepime in dialysis center, based on culture sensitivity, will continue quinolone, Levaquin, renally adjusted, appreciate ID input, requested by -no IVF, no s/s of sepsis, monitor v/s, trends fever curve, Chronic, stable #ESRD, POA, on HD T,,Sat, To continue her usual hemodialysis schedule #Paroxysmal AFib, POA, continue Plavix 75mg daily; metoprolol #Diabetes Mellitus type 2, POA, diet controlled, #History of Crohn's disease. Status post total colectomy and ileostomy, s/p Remicade infusion once a month, currently not on meds, followed by Dr. Kim. #History of heparin-induced thrombocytopenia. DVT prophylaxis will be SCDs and she is on Plavix. #Hyperparathyroidism, POA, stable, Continue home doses of Cinacalcet and Sevelamer #Depression, POA, stable, continue fluoxetine 40mg PO qam #Pruritis, POA, ongoing, Continue Hydroxyzine 25mg PO QID PRN #Hyperlipidemia, POA, stable, continue Atorvastatin 40mg PO qhs #Insomnia, POA, continue Zolpidem Tartrate 5mg #RLS, POA, stable, continue Ropinirole 2mg PO qhs #Chronic right hip pain secondary to OA, POA. -continue Oxycodone 5mg PO q6h PRN -continue Gabapentin 900mg PO TID -continue Leflunomide 20mg PO qhs dvt ppx: Noted heparin allergy, ambulate for now Full code Continue dialysis and transfer to [place] when Surgery has been able to speak to Dr. Clancy about the logistics involved. Alexey Granados MD Pain Evaluation: Adequate Pain Control Resuscitation Status: CPR: Attempt Resuscitation Dulce Granados MD October 02, 2016 14:46
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
--- NOTE | 2016-10-02 16:15 | NUR ---
Social Work: initial Assessment Data & Assessment: Plate Painter Apprentice met with patient and patient's spouse, Nathanael Escudero [phone], to complete initial assessment, SW role reviewed, and discharge planning discussed. Patient has Medicare and [facility] Insurance [place] [employer]. Patient has no VA or LTC insurance. patient's re-admit score is 4 high-risk. Patient has an Advance Directive/DPOA and SW requested a copy. Patient lives in a group home apartment with her spouse. Patient does not drive, but is independent. Patient has a cane if needed. Patient goes to dialysis in the community. Patient has no HH history, but she has been to a SNF facility in [place]. Patient does not have any current discharge needs or concerns. SW wrote contact information on patient's white board. SW will continue to follow and assist patient throughout stay. Plan: Patient will likely discharge home via POV when medicaly ready. SW will continue to follow and assist patient throughout stay. Cesar Santizo LMSW, KILEY Addendum: 10/02/16 at 1629 by CESAR NGUYEN Amended: Links added.
--- NOTE | 2016-10-02 16:23 | NUR ---
Pain- Patient complained of 8/10 abd. pain that radiates to her back. Dilaudid 0-5mg IV effective for most of discomfort. Patient had dialysis tx. Up ad truong in room. Erica. activity well. Tele- sinus rhythm.
[2016-10-02] MEDS: Ondansetron 2 mg/mL 2 mL Inj IVPUSH PRN (17:58)
[2016-10-02] MEDS ORDERED: HYDROmorphone 0.5 mg/0.5 mL iSecure Syringe IVPUSH PRN (20:50)
[2016-10-03] VITALS (8 sets, daily range): BP systolic 97–104; BP diastolic 55–66; PULSE 79–100; RESP 16–18; O2SAT 92–95
[2016-10-03] MEDS: HYDROmorphone 1 mg/mL Inj IVPUSH PRN ×7 (01:50→21:51)
--- NOTE | 2016-10-03 07:58 | PCM.PNSURG ---
Subjective Visit Information: Reason for Visit Pyelonephritis/Vesical Colonic Fistula Surgery/Surgery Date Post-Op Day # Date of Admission: September 30, 2016 at 16:44 Hospital Day # Subjective: sitting in bed eating breakfast and talking with her this am; still c/ o abd pain and drainage and burning, had hemodialysis yesterday Objective Objective Awake sitting up in bed Abd: midline scar, L ileostomy with bag, tender to touch from lower mid-abdomen to RLQ Vital Sign- Last 8 Hours Date Time Temp Pulse Resp B/P Pulse Ox O2 Delivery O2 Flow Rate FiO2 10/03/16 06:05 37.3 84 16 104/66 95 Room Air 10/03/16 05:23 79 10/03/16 01:00 36.9 79 16 101/55 94 Room Air Intake and Output- Last 8 Hour 10/03/16 Cumulative From/Thru 07:00 09/30/16 20:15 - 10/02/16 17:24 Intake Total 3243 ml Output Total 2070 ml Balance 1173 ml Intake Oral 2950 ml IV Total 273 ml Tube Irrigant 20 ml Output Urine Total 0 ml Stool Total 620 ml Ultrafiltrate 1400 ml Other 50 ml # Bowel Movements 3 Result Diagram: 10/01/16 0622 10/03/16 0558 Assessment & Plan Impression ESRD on hemodialysis Crohn's 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
[2016-10-03] MEDS: Ondansetron 2 mg/mL 2 mL Inj IVPUSH PRN ×2 (10:08→17:00)
[2016-10-03] MEDS: Lanthanum Carbonate 500 mg Chewable Tablet PO SCH ×3 (10:09→18:28)
--- NOTE | 2016-10-03 11:07 | PCM.PNMED ---
Subjective Date of Service October 03, 2016 Subjective She is reluctant to right lower quadrant abdominal pain and some increased pain with deep breathing. She denies any chest pain or dyspnea. No nausea. She has a chronic ostomy with normal output. She is ongoing dysuria as well. Intermittent fevers and chills. No overnight events. Exam Vital Signs Vital Sign - Last Date Time Temp Pulse Resp B/P Pulse Ox O2 Delivery O2 Flow Rate FiO2 10/03/16 07:48 100 10/03/16 06:05 37.3 16 104/66 95 Room Air Intake and Output 10/02/16 10/02/16 10/03/16 Cumulative From/Thru 15:00 23:00 07:00 09/30/16 20:15 - 10/02/16 17:24 Intake Total 610 ml 3243 ml Output Total 1400 ml 500 ml 2070 ml Balance -1400 ml 110 ml 1173 ml Intake Oral 590 ml 2950 ml IV Total 273 ml Tube Irrigant 20 ml 20 ml Output Urine Total 0 ml Stool Total 500 ml 620 ml Ultrafiltrate 1400 ml 1400 ml Other 50 ml # Bowel Movements 3 Exam Alert and oriented -3, no distress. Fluent speech Anicteric sclera. Lungs are clear with normal rate and effort Heart is regular without murmur gallop or rub Abdomen soft nontender, flat. Ostomy is in place. She has left and right lower quadrant tenderness with some rebound. Extremities are free of edema. Skin is free of rash or lesions. Lab and Diagnostics Result Diagram: 10/01/16 0622 10/03/16 0558 X-Rays, CTs and MRIs PROCEDURE: CT ABDOMEN AND PELVIS WITHOUT CONTRAST ([id number]) INDICATIONS: lower abdominal pain TECHNIQUE: Noncontrast 5 mm thick sections acquired from the diaphragms to the symphysis. 5 mm coronal and sagittal reformats were then performed. For radiation dose reduction, the following was used: automated exposure control, adjustment of mA and/or kV according to patient size. COMPARISON: [facility], CT, CT ABD PELVIS WO CON, 10/03/2015, 19:56. FINDINGS: Image quality: Excellent. ABDOMEN: Bibasilar scarring/atelectasis. Grossly unchanged 6 mm nodule seen in the right lung base on image 3 is unchanged since 10/03/15. Heart normal size. There coronary artery calcifications. Unenhanced liver grossly unremarkable. There is midline upper anterior abdominal wall laxity. Spleen unremarkable. Gallbladder surgically absent. No biliary ductal dilatation. Pancreas and adrenal glands within normal limits. Bilateral renal cortical scarring and atrophy. There is a exophytic right renal cyst which is also unchanged. Peritoneum and bowel: No evidence of bowel obstruction. Postsurgical changes related to presumed cholectomy, and left lower quadrant ostomy. No free fluid or air. Nodes and vessels: No retroperitoneal or mesenteric adenopathy by size criteria. Aorta and inferior vena cava are normal in caliber. Miscellaneous: There is midline laxity of the lower abdominal wall PELVIS: Genitourinary: Bladder is decompressed therefore grossly unremarkable however there is surrounding inflammatory fat stranding Miscellaneous: No inguinal hernias or adenopathy. Bones: No suspicious bony lesions. No vertebral body compression fractures. IMPRESSION: Decompressed bladder however surrounding inflammatory fat stranding and possible wall thickening raising the possibility of cystitis. Please correlate clinically and with urinalysis data. Elsewhere, no acute abnormality or interval change. Dictated by: Charlie Lacy M.D. on 09/25/2016 at 20:41 Approved by: Charlie Lacy M.D. on 09/25/2016 at 20:47 Assessment & Plan #. UTI, POA, due to Enterococcus/Klebsiella, concerning for colovesical, colovaginal fistula. not apparent on recent CT abd/pelvis. -will medically manage for now, has been seen by Julieth Godfrey and Dr. Gonzales. - Gen surg consulted yesterday, appreciate recommendations given complicated hx of abdominal surgery previous fistula, Crohn's, patient may need to be transferred to tertiary hospital. -s/p vancomycin, cefepime in dialysis center, based on culture sensitivity, will continue quinolone, Levaquin, renally adjusted, appreciate ID input, requested by -no IVF, no s/s of sepsis, monitor v/s, trends fever curve, We will obtain infectious disease consultation. We will continue current antibiotics. Surgery is suggested and transfer to either [facility] or [facility] both based on patient preference. We will work on this early in the week and continue antibiotics in the meantime. #ESRD, POA and stable, on HD T,,Tue, To continue her usual hemodialysis schedule #Paroxysmal AFib, POA and stable, continue Plavix 75mg daily; metoprolol #Diabetes Mellitus type 2, POA and stable, diet controlled, #History of Crohn's disease. POA and stable. Status post total colectomy and ileostomy, s/p Remicade infusion once a month, currently not on meds, followed by Dr. Kim. #History of heparin-induced thrombocytopenia. DVT prophylaxis will be SCDs and she is on Plavix. #Hyperparathyroidism, POA, stable, Continue home doses of Cinacalcet and Sevelamer #Depression, POA, stable, continue fluoxetine 40mg PO qam #Hyperlipidemia, POA, stable, continue Atorvastatin 40mg PO qhs #Insomnia, POA and stable, continue Zolpidem Tartrate 5mg #RLS, POA, stable, continue Ropinirole 2mg PO qhs #Chronic right hip pain secondary to OA, POA. -continue Oxycodone 5mg PO q6h PRN -continue Gabapentin 900mg PO TID -continue Leflunomide 20mg PO qhs dvt ppx: Noted heparin allergy, ambulate for now Full code Continue dialysis and transfer to [place] when Surgery has been able to speak to Dr. Clancy at [facility] about the logistics involved. Resuscitation Status: CPR: Attempt Resuscitation Brennan Gonzales MD October 03, 2016 11:07
--- NOTE | 2016-10-03 12:13 | NUR ---
Pain/Nausea/Ileostomy Pt having increasing pain, dilaudid order changed to q2. Nausea is increasing, zofran ineffective, pt actively retching, iv promethazine to be ordered and started soon. Pt reports having blood draining into ileostomy now, aware, will continue to monitor per dr liu.
[2016-10-03] MEDS: Promethazine Inj 12.5 MG in 0.9% Sodium Chloride 50 ML IV PRN ×2 (12:43→19:38)
--- NOTE | 2016-10-03 13:46 | PCM.PNNEPH ---
Subjective Date of Service October 03, 2016 Subjective Patient continued to have abdominal discomfort, vagina or discharge and dysuria. She had dialysis yesterday without complication. Serum sodium has normalized. Exam Vital Signs Vital Sign - Last Date Time Temp Pulse Resp B/P Pulse Ox O2 Delivery O2 Flow Rate FiO2 10/03/16 07:48 100 10/03/16 06:05 37.3 16 104/66 95 Room Air Intake and Output 10/02/16 10/02/16 10/03/16 Cumulative From/Thru 15:00 23:00 07:00 09/30/16 20:15 - 10/02/16 17:24 Intake Total 610 ml 3243 ml Output Total 1400 ml 500 ml 2070 ml Balance -1400 ml 110 ml 1173 ml Intake Oral 590 ml 2950 ml IV Total 273 ml Tube Irrigant 20 ml 20 ml Output Urine Total 0 ml Stool Total 500 ml 620 ml Ultrafiltrate 1400 ml 1400 ml Other 50 ml # Bowel Movements 3 Exam General appearance: Awake, alert and oriented x3. In no acute distress. HEENT: No pallor. No jaundice. No JVD. No lymphadenopathy. No thyroid enlargement. PERRLA: Atraumatic. Moist mucous membranes. Heart: Regular rhythm. Normal S1, S2. Systolic murmur noted, no rubs or gallops. Lungs clear to auscultation bilaterally. No wheezing. No rhonchi. Abdomen: Soft. Mild tenderness on the suprapubic area and RLQ. Ileostomy in place. Surgical scar noted at the midline which is dry, clean and intact. Extremities: No edema, cyanosis or clubbing of the fingers. Left AV fistula with good thrill. Lab and Diagnostics Result Diagram: 10/01/16 0622 10/03/16 0558 X-Rays, CTs and MRIs PROCEDURE: CT ABDOMEN AND PELVIS WITHOUT CONTRAST ([id number]) INDICATIONS: lower abdominal pain TECHNIQUE: Noncontrast 5 mm thick sections acquired from the diaphragms to the symphysis. 5 mm coronal and sagittal reformats were then performed. For radiation dose reduction, the following was used: automated exposure control, adjustment of mA and/or kV according to patient size. COMPARISON: [facility], CT, CT ABD PELVIS WO CON, 10/03/2015, 19:56. FINDINGS: Image quality: Excellent. ABDOMEN: Bibasilar scarring/atelectasis. Grossly unchanged 6 mm nodule seen in the right lung base on image 3 is unchanged since 10/03/15. Heart normal size. There coronary artery calcifications. Unenhanced liver grossly unremarkable. There is midline upper anterior abdominal wall laxity. Spleen unremarkable. Gallbladder surgically absent. No biliary ductal dilatation. Pancreas and adrenal glands within normal limits. Bilateral renal cortical scarring and atrophy. There is a exophytic right renal cyst which is also unchanged. Peritoneum and bowel: No evidence of bowel obstruction. Postsurgical changes related to presumed cholectomy, and left lower quadrant ostomy. No free fluid or air. Nodes and vessels: No retroperitoneal or mesenteric adenopathy by size criteria. Aorta and inferior vena cava are normal in caliber. Miscellaneous: There is midline laxity of the lower abdominal wall PELVIS: Genitourinary: Bladder is decompressed therefore grossly unremarkable however there is surrounding inflammatory fat stranding Miscellaneous: No inguinal hernias or adenopathy. Bones: No suspicious bony lesions. No vertebral body compression fractures. IMPRESSION: Decompressed bladder however surrounding inflammatory fat stranding and possible wall thickening raising the possibility of cystitis. Please correlate clinically and with urinalysis data. Elsewhere, no acute abnormality or interval change. Dictated by: Charlie Lacy M.D. on 09/25/2016 at 20:41 Approved by: Charlie Lacy M.D. on 09/25/2016 at 20:47 Plan Impression 1. Complicated urinary tract infection. Uc/x Enterococcus, Klebsiella. 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 4. End-stage renal disease, on hemodialysis every Tuesday, , Tuesday. 5. Dilutional hyponatremia. 6. Type 2 diabetes with renal manifestation. 7. Hypertension with hypertensive nephrosclerosis. 8. History of Crohn disease, status post colectomy and ileostomy. Plan: - Recommend fluid restriction 1.5 L per day. - Pending to be transferred to a tertiary care in [place]. - Next dialysis on Tuesday. - IV antibiotics per sensitivity. Simon Radford MD October 03, 2016 13:46
--- NOTE | 2016-10-03 15:53 | NUR ---
Social Work: Brief Note Data & Assessment: Patient is a 71 y/o female on her third day of hospitalization for Pyelonephritics/Vesical Colonic Fistula per H&P. Patient was discussed in daily rounds and infectious disease will be consulted. It was also discussed that surgery suggested transfer to either [facility] or [facility] once patient's UTI is clear. SW will continue to follow patient and assist with discharge planning needs. Plan: Patient is likely to discharge to [facility] or [facility] once UTI is clear. SW will continue to follow and assist patient throughout stay. Leona Santizo, JORDAN, ACM
[2016-10-03] MEDS ORDERED: 0.9% Sodium Chloride 250 ML ONE (19:36)
[2016-10-03] MEDS: levoFLOXacin Inj 500 MG in IV Premix 1 EACH IV SCH (21:24)
[2016-10-04] VITALS (7 sets, daily range): BP systolic 91–111; BP diastolic 47–71; PULSE 73–80; RESP 16–20; O2SAT 93–100
[2016-10-04] MEDS: HYDROmorphone 1 mg/mL Inj IVPUSH PRN ×6 (02:30→23:53)
--- NOTE | 2016-10-04 06:28 | NUR ---
Pain/Nausea/Ileostomy/Activity pt reported pain7-8/10 multiple times during this shift. gave PRN 0.5 mg IV Dilaudid. pt respond pain relief by appearing asleep on reassessment and no voice of pain until next dose is available. pt reported nausea. administered IV promethazine which was effective. pt state no blood drain into ileostomy during this night. pt ambulated in the hallway x2 with supervision during this shift. independent in room. will continue to monitor.
[2016-10-04] MEDS: Lanthanum Carbonate 500 mg Chewable Tablet PO SCH ×3 (09:12→17:30)
--- NOTE | 2016-10-04 10:00 | PCM.PNNEPH ---
Subjective Date of Service October 04, 2016 Subjective Mrs. Cloud is well-known to me as I have been following her for well over a year for her end-stage renal disease. She was recently admitted for multiple fistulas involving her ladder and vagina from her Crohn's disease. She is been seen by both general surgery and urology and is scheduled to be transferred down to [place] hopefully today. She states that she has some ongoing nausea and vomiting and continues to pass stool through her ostomy along with some blood and stool and brownish discharge from her vagina. Her urine cultures have been positive for Klebsiella pneumonia and enterococcus. Exam Vital Signs Vital Sign - Last Date Time Temp Pulse Resp B/P Pulse Ox O2 Delivery O2 Flow Rate FiO2 10/04/16 09:02 73 10/04/16 06:21 36.9 16 101/59 93 Room Air Intake and Output 10/03/16 10/03/16 10/04/16 Cumulative From/Thru 15:00 23:00 07:00 09/30/16 20:15 - 10/04/16 06:21 Intake Total 722 ml 550 ml 4515 ml Output Total 2070 ml Balance 722 ml 550 ml 2445 ml Intake Oral 500 ml 350 ml 3800 ml IV Total 222 ml 200 ml 695 ml Tube Irrigant 20 ml Output Urine Total 0 ml Stool Total 620 ml Ultrafiltrate 1400 ml Other 50 ml # Bowel Movements 3 4 10 Exam Neck is supple without adenopathy, thyromegaly, or jugular venous distention. Lungs are clear to auscultation. Heart is regular and rhythmical with a soft systolic murmur. Abdomen shows some diminished bowel sounds and she has diffuse tenderness, rebound, guarding noted in all 4 quadrants. There is no hepatosplenomegaly. Extremities do not show any evidence of any clubbing, cyanosis, or edema. Skin turgor is good. Lab and Diagnostics Result Diagram: 10/01/1622 10/04/16 0610 X-Rays, CTs and MRIs PROCEDURE: CT ABDOMEN AND PELVIS WITHOUT CONTRAST ([id number]) INDICATIONS: lower abdominal pain TECHNIQUE: Noncontrast 5 mm thick sections acquired from the diaphragms to the symphysis. 5 mm coronal and sagittal reformats were then performed. For radiation dose reduction, the following was used: automated exposure control, adjustment of mA and/or kV according to patient size. COMPARISON: [facility], CT, CT ABD PELVIS WO CON, 10/03/2015, 19:56. FINDINGS: Image quality: Excellent. ABDOMEN: Bibasilar scarring/atelectasis. Grossly unchanged 6 mm nodule seen in the right lung base on image 3 is unchanged since 10/03/15. Heart normal size. There coronary artery calcifications. Unenhanced liver grossly unremarkable. There is midline upper anterior abdominal wall laxity. Spleen unremarkable. Gallbladder surgically absent. No biliary ductal dilatation. Pancreas and adrenal glands within normal limits. Bilateral renal cortical scarring and atrophy. There is a exophytic right renal cyst which is also unchanged. Peritoneum and bowel: No evidence of bowel obstruction. Postsurgical changes related to presumed cholectomy, and left lower quadrant ostomy. No free fluid or air. Nodes and vessels: No retroperitoneal or mesenteric adenopathy by size criteria. Aorta and inferior vena cava are normal in caliber. Miscellaneous: There is midline laxity of the lower abdominal wall PELVIS: Genitourinary: Bladder is decompressed therefore grossly unremarkable however there is surrounding inflammatory fat stranding Miscellaneous: No inguinal hernias or adenopathy. Bones: No suspicious bony lesions. No vertebral body compression fractures. IMPRESSION: Decompressed bladder however surrounding inflammatory fat stranding and possible wall thickening raising the possibility of cystitis. Please correlate clinically and with urinalysis data. Elsewhere, no acute abnormality or interval change. Dictated by: Charlie Lacy M.D. on 09/25/2016 at 20:41 Approved by: Charlie Lacy M.D. 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 Norbert Burch DO October 04, 2016 10:00
--- NOTE | 2016-10-04 14:17 | PCM.CHPMED ---
Subjective Date of Service: October 04, 2016 Primary Physician: Admitting Physician: Juan Antonio Salgado MD Primary Care Physician: Gabriella Horn MD Attending Physician: Juan Antonio Salgado MD Chief Complaint: Chief Complaint: Abdominal pain Enterovaginal fistula History of Present Illness: 71-year-old female on hemodialysis with a very complicated surgical history and medical history including Crohn's disease with complete colectomy and partial small bowel removal at the age of 11 with permanent ileostomy who present to the ED with complaints of abdominal pain and fecal material being passed through her vagina. Patient states that she had a total of 22 operations since 11 years old, including multiple bowel obstructions and episodes of septicemia, including MRSA in 2008. In 2008 patient underwent emergent surgery in [place] due to sepsis and notable vaginal fistula. Patient followed up at [facility] but surgical intervention on the fistula appears to have been declined by the surgeon at that time due to patient doing medically well. Patient states that she is in significant pain from stool passing through her vagina which is occurring up to 5 or 6 times daily. Patient initially states that there was no blood in her ostomy bag with your vagina but now she has noticed blood with fecal material in her ostomy bag that started yesterday. Patient denies chest pain, shortness breath, dizziness, nausea/vomiting, or fever/chills. Patient is being followed by nephrology and surgery, and current recommendations are that the patient should be transferred to [facility] for surgical closure of this fistula. GI was consulted for additional evaluation. In regards to the patient's Crohn's disease, she states that she is off of any sort of treatment medication. She was previously on mesalamine 2 years ago but stopped after a year due to severe side effects including psoriatic skin changes. Review of Systems: See history of present illness PMH Past Medical History 1. Crohn's disease. 2. End-stage renal failure on dialysis. 3. History of cardiac arrest. 4. History of recurrent small bowel obstructions. 5. History of subdural hematoma. 6. History of heparin-induced thrombocytopenia. 7. Open abdomen and MRSA. 8. Incisional hernia. 9. History of TIA. 10. Diabetes mellitus. 11. GERD. 12. Hypertension. 13. History of atrial fibrillation. 14. Depression. 15. Osteoarthritis. Hx Any Other Health Problems?: YesHx Diabetes: Yes Surgical History Total abdominoperineal proctocolectomy Small bowel resection By somebody's and Cholecystectomy Evacuation of subdural hematoma Allergies: Coded Allergies: Penicillins (Verified Allergy, Severe, Anaphylaxis, 09/25/16) Sulfa (Sulfonamide Antibiotics) (Verified Allergy, Severe, ANAPHYLAXIS, ) NSAIDS (Non-Steroidal Anti-Inflamma (Verified Allergy, Intermediate, " HARD ON KIDNEYS", 09/25/16) morphine (Verified Allergy, Intermediate, "goes crazy", 09/25/16) aspirin (Verified Allergy, Unknown, tongue swells, 09/25/16) heparin (Verified Allergy, Unknown, HEPARIN INDUCED THROMBOCYTOPENIA, 09/25) HIT latex (Verified Allergy, Unknown, weeping rash, 09/25/16) Uncoded Allergies: CHLORAPREP (Allergy, Severe, rash/itching, 01/08/16) weeping rash Foam Dressing (Allergy, Severe, Hives, 10/09/13) Deep redness, pain, and swelling to skin occurs when foam dressing is used. Social History Hx Alcohol Use: NoHx Substance Use: NoHx Tobacco Use: No Smoking Status: Former Smoker Exam Vital Signs Vital Sign - Last Date Time Temp Pulse Resp B/P Pulse Ox O2 Delivery O2 Flow Rate FiO2 10/04/16 09:02 73 10/04/16 06:21 36.9 16 101/59 93 Room Air Intake and Output 10/03/16 10/03/16 10/04/16 Cumulative From/Thru 15:00 23:00 07:00 09/30/16 20:15 - 10/04/16 06:21 Intake Total 722 ml 550 ml 4515 ml Output Total 2070 ml Balance 722 ml 550 ml 2445 ml Intake Oral 500 ml 350 ml 3800 ml IV Total 222 ml 200 ml 695 ml Tube Irrigant 20 ml Output Urine Total 0 ml Stool Total 620 ml Ultrafiltrate 1400 ml Other 50 ml # Bowel Movements 3 4 10 General: Alert, Oriented X3 Head: Normal Eyes: Scleral Anicteric Mouth: Mucous Membr Moist/[place] Chest & Lungs: Chest Wall Normal, Clear to auscultation & percussion Cardiovascular: Exam Unremarkable, Regular Rate/Rhythm Pulses: Radial Abdomen: Tender (strangely tender), Distended (moderately) Extremities: No cyanosis/clubbing/edma bilat Neurological: Grossly Neurologically Intact (appears intact) Lab and Diagnostics Result Diagram: 10/01/16 0622 10/04/16 0610 Assessment & Plan Assessment Problem list: 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 3) f/u outpatient or transfer to [facility] with GI to further eval if pt has short bowel syndrome given extensive resection of small bowel and eval for Gattex. will need prior op reports to eval extent of small bowel that is left 4) consider Nutrition/audience coordinator consult re: need for possible tpn 5) follow up with Dr. Kim in GI clinic as outpatient will cont to follow Thank you for allowing us to participate in the care of this most unfortunate patient. Problems: Pain Evaluation: Adequate Pain Control Resuscitation Status: CPR: Attempt Resuscitation Attending Statement agree with assessment and plan and recs above. Rishi Rodrigez DO October 04, 2016 14:17 Zhang Hutchinson MD October 04, 2016 17:45
--- NOTE | 2016-10-04 15:18 | NUR ---
NUTRITION ASSESSMENT: ASSESS: 71YO F admit with enterovaginal fistula, recommending possible transfer to different facility for closure of fistula, possible gattex injections for short bowel syndrome and recommend TPN start in meantime. No TPN orders received. PMHX: ESRD on dialysis, Afib,HTN,GERD,SBO,Short bowel syndrome, crohns w/colectomy, permanent ileostomy. DIET: Renal. PO 50-100% LABS: Na 133, BUN 50, Cr 6.20,Glu 100,Ca 8.2, Alb 3.4 MEDS: Reviewed GI: nausea, blood in ileostomy bag SKIN: WEIGHT: 72.0kg, BMI: 29.0= Overweight EST.NEEDS: DIALYSIS Kcal: 5342-2098 Pro: 85-140g NUTRITION DIAGNOSIS: (1) Altered GI tract function related to/as evidenced by short bowel syndrome, Crohns. (2) Increased energy/protein needs related to increased demand for nutrients as evidenced by ESRD on dialysis. INTERVENTION: (1) Renal supplements added to meal trays. (2) In event TPN initiated recommend starting 100g dextrose, 45g AA, 20g lipids to provide 720 kcal, 0.96g/kg/min dextrose infusion rate, 47% CHO,25%PRO,28% FAT, meeting 33%kcal needs, 52% protein needs. If pt diet is modified to NPO or po intake trends down would recommend modifying TPN composition to better meet needs. MONITOR/EVALUATE: PO intake, lab values, GI status, TPN initiation?. F/U per high risk.
--- NOTE | 2016-10-04 15:53 | PCM.PNMED ---
Subjective Date of Service October 04, 2016 Subjective Patient remains afebrile. No leukocytosis. Continues to have feces thru vagina Exam Vital Signs Vital Sign - Last Date Time Temp Pulse Resp B/P Pulse Ox O2 Delivery O2 Flow Rate FiO2 10/04/16 09:02 73 10/04/16 06:21 36.9 16 101/59 93 Room Air Intake and Output 10/03/16 10/03/16 10/04/16 Cumulative From/Thru 15:00 23:00 07:00 09/30/16 20:15 - 10/04/16 06:21 Intake Total 722 ml 550 ml 4515 ml Output Total 2070 ml Balance 722 ml 550 ml 2445 ml Intake Oral 500 ml 350 ml 3800 ml IV Total 222 ml 200 ml 695 ml Tube Irrigant 20 ml Output Urine Total 0 ml Stool Total 620 ml Ultrafiltrate 1400 ml Other 50 ml # Bowel Movements 3 4 10 Exam Alert and oriented -3, no distress. Fluent speech Anicteric sclera. Lungs are clear with normal rate and effort Heart is regular without murmur gallop or rub Abdomen soft nontender, flat. Ostomy is in place. She has left and right lower quadrant tenderness with some rebound. Extremities are free of edema. Skin is free of rash or lesions.\ Pelvic and rectal exam deferred IVs and Medications Medications Reviewed: Medications were reviewed in detail Lab and Diagnostics Result Diagram: 10/01/1662110/04/16 0610 X-Rays, CTs and MRIs PROCEDURE: CT ABDOMEN AND PELVIS WITHOUT CONTRAST ([id number]) INDICATIONS: lower abdominal pain TECHNIQUE: Noncontrast 5 mm thick sections acquired from the diaphragms to the symphysis. 5 mm coronal and sagittal reformats were then performed. For radiation dose reduction, the following was used: automated exposure control, adjustment of mA and/or kV according to patient size. COMPARISON: [facility], CT, CT ABD PELVIS WO CON, 10/03/2015, 19:56. FINDINGS: Image quality: Excellent. ABDOMEN: Bibasilar scarring/atelectasis. Grossly unchanged 6 mm nodule seen in the right lung base on image 3 is unchanged since 10/03/15. Heart normal size. There coronary artery calcifications. Unenhanced liver grossly unremarkable. There is midline upper anterior abdominal wall laxity. Spleen unremarkable. Gallbladder surgically absent. No biliary ductal dilatation. Pancreas and adrenal glands within normal limits. Bilateral renal cortical scarring and atrophy. There is a exophytic right renal cyst which is also unchanged. Peritoneum and bowel: No evidence of bowel obstruction. Postsurgical changes related to presumed cholectomy, and left lower quadrant ostomy. No free fluid or air. Nodes and vessels: No retroperitoneal or mesenteric adenopathy by size criteria. Aorta and inferior vena cava are normal in caliber. Miscellaneous: There is midline laxity of the lower abdominal wall PELVIS: Genitourinary: Bladder is decompressed therefore grossly unremarkable however there is surrounding inflammatory fat stranding Miscellaneous: No inguinal hernias or adenopathy. Bones: No suspicious bony lesions. No vertebral body compression fractures. IMPRESSION: Decompressed bladder however surrounding inflammatory fat stranding and possible wall thickening raising the possibility of cystitis. Please correlate clinically and with urinalysis data. Elsewhere, no acute abnormality or interval change. Dictated by: Charlie Lacy M.D. on 09/25/2016 at 20:41 Approved by: Charlie Lacy M.D. on 09/25/2016 at 20:47 Assessment & Plan #. UTI, POA, due to Enterococcus/Klebsiella, concerning for colovesical, colovaginal fistula. not apparent on recent CT abd/pelvis. -will medically manage for now, has been seen by Julieth Godfrey and Dr. Gonzales. - Gen surg consulted yesterday, appreciate recommendations given complicated hx of abdominal surgery previous fistula, Crohn's, patient may need to be transferred to tertiary hospital. -s/p vancomycin, cefepime in dialysis center, based on culture sensitivity, will continue quinolone, Levaquin, renally adjusted, appreciate ID input, requested by -no IVF, no s/s of sepsis, monitor v/s, trends fever curve, -Consulted GI , -Spoke with Surgery Dr Gonzales, he is trying to get her a surgeon in [facility] for transfer We will obtain infectious disease consultation. We will continue current antibiotics. #ESRD, POA and stable, on HD T,Th,Sat, To continue her usual hemodialysis schedule #Paroxysmal AFib, POA and stable, continue Plavix 75mg daily; metoprolol #Diabetes Mellitus type 2, POA and stable, diet controlled, #History of Crohn's disease. POA and stable. Status post total colectomy and ileostomy, s/p Remicade infusion once a month, currently not on meds, followed by Dr. Kim. #History of heparin-induced thrombocytopenia. DVT prophylaxis will be SCDs and she is on Plavix. #Hyperparathyroidism, POA, stable, Continue home doses of Cinacalcet and Sevelamer #Depression, POA, stable, continue fluoxetine 40mg PO qam #Hyperlipidemia, POA, stable, continue Atorvastatin 40mg PO qhs #Insomnia, POA and stable, continue Zolpidem Tartrate 5mg #RLS, POA, stable, continue Ropinirole 2mg PO qhs #Chronic right hip pain secondary to OA, POA. -continue Oxycodone 5mg PO q6h PRN -continue Gabapentin 900mg PO TID -continue Leflunomide 20mg PO qhs dvt ppx: Noted heparin allergy, ambulate for now Full code Continue dialysis and transfer to [place] when Surgery has been able to speak to Dr. Clancy at [facility] about the logistics involved. Resuscitation Status: CPR: Attempt Resuscitation Tomas Rousseau MD October 04, 2016 15:53
[2016-10-04] MEDS ORDERED: SODIUM CHLORIDE 0.9% IV PRN (15:56)
[2016-10-04] MEDS ORDERED: PROMETHAZINE IV PRN (15:56)
--- NOTE | 2016-10-04 18:11 | PROG NOTE ---
[address] [address] PROGRESS NOTE PATIENT: JYOTSNA MORALEZ : 1945 MR#: [id number] ADMIT: 09/30/2016 JOB ID: [id number] DATE: 10/04/2016 I met again with the patient. I explained to her I was still awaiting to hear recommendations from [facility]. I have not gotten a reply, but I expect that I will. I explained to her again the importance of being evaluated there. I think that it goes much beyond what is actually done in the operating room but more the resources with a full surgical team of interns and residents that would be able to assist in taking care of her postoperatively which could be long and arduous. She explained to me that she does not want to restart Remicade because of the side effects. I actually think that if she lived with a fistula for awhile and found that her quality of life is deteriorating, maybe she would reconsider Remicade. But, I explained to her that I am going to continue to contact my friends at [facility] and discuss her case with them and then help make a plan. But, in the meantime, I do not think that she needs to stay in the hospital. I think it is okay that she be discharged. Time spent with patient and in coordination of care: 30 minutes.
--- NOTE | 2016-10-04 18:22 | NUR ---
Mentation/ostomy/pain/nausea Pt had many MD's come in and see her today. Plan not always clear and upsetting pt. At one point threatened to leave AMA. MD came and assessed the reason to stay and agreed to stay at least until tomorrow. Continue with abx. pt cares for own ostomy, reports output per usual "lots". c/o pain abd, cramping dilaudid given per order with effective relief. Phenergan given for nausea x2, helpful.
--- NOTE | 2016-10-04 21:02 | CONS ---
[address] [address] CONSULTATION REPORT PATIENT: JYOTSNA MORALEZ : 1945 MR#: [id number] ADMIT: 09/30/2016 JOB ID: [id number] DATE OF SERVICE: 10/04/[address]rs[address] Rodriguez and Norbert Burch for this consult. REASON FOR CONSULT: Crohn's disease flare with enterovaginal fistula. HISTORY OF PRESENT ILLNESS: The patient is an unfortunate, 71-year-old woman with an extremely complex medical history which includes a diagnosis of Crohn's disease when she was about 11 years old. This eventually required a colectomy which was followed by reversal of colostomy which failed and he was then switched back to a colostomy. Over the past a few decades, her Crohn's disease has been largely quiescent according to patient, but she has actually received a variety of drugs including mesalamine and Remicade over the past few years, both with notable side effects. The patient also has a number of other diagnoses including end-stage renal disease secondary to diabetes and hypertension, as well as atrial fibrillation and frequent small bowel obstructions requiring greater than 20 operations over the past couple decades. She also suffered an extremely large abdominal wound just last year due to MRSA which required a prolonged wound VAC and aggressive antibiotic management. This admission was precipitated by her passing feces per vagina. Because of this apparent enterovaginal fistula, the patient was sent by Dr. Burch from dialysis as a direct admission to the hospital. That admission occurred now four days ago, on September 30. This admission was precipitated by the discovery of the apparent fistula with stools coming from the vagina, but the patient had no significant symptoms consistent with infection in that she had no significant fever, chills, sweats, pulmonary symptoms or any extra-abdominal symptoms. The patient does report her abdomen has become more distended for the last 11 days and it has been somewhat more painful than normal and also noted that she has had some bloody output from her colostomy but not from the vagina where she has had just more typically fecal material. The patient has been started on broad-spectrum antibiotics which included vancomycin and Levaquin because of a longstanding history of serious PENICILLIN allergy which dates back to her childhood. Flagyl was added today by the GI team, not for its antimicrobial properties but because of its anti- fistulization properties and its benefits in Crohn disease. The ID team is consulted today regarding the need for any systemic antibiotics and if so, which ones. PAST MEDICAL HISTORY: 1. Crohn's disease x60 years. a. Multiple small bowel obstructions. b. Abdominal wall MRSA infection requiring prolonged wound VAC. 2. Colostomy. 3. History of fistulization in the past. 4. End-stage renal disease. 5. Diabetes mellitus. 6. Hypertension. 7. Atrial fibrillation. 8. History of urinary tract infections, though at this point, she produces simply no urine. 9. History of subdural hematoma. 10. History of heparin-induced thrombocytopenia. 11. Depression. 12. Restless legs syndrome. 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 The patient is a nondrinker and a former smoker. FAMILY HISTORY: Negative for tuberculosis in first- and second-degree relatives. REVIEW OF SYSTEMS: Patient has no significant headache. No visual change. No headache, no visual changes. She does have dry mucous membranes and has had a bit of sore throat over the past 24-48 hours which has now resolved. No complaints regarding her neck. No cough, but she does have a feeling of shortness of breath which has persisted over the last week or two. No pleuritic chest pains reported. She does have abdominal distention and considerable abdominal pain. She has noted feces from the vagina which is what precipitated this admission. She has noted also some degree of nausea in association with this abdominal distention as well as some retching. The patient has not had any significant joint complaints. Remainder of the review of systems is negative. PHYSICAL EXAMINATION: Reveals a somewhat depressed-appearing woman who is in no acute distress. Temperature has been as high as 37.9 and that was just at noon today, but otherwise she has been afebrile. Currently 37 degrees, pulse 78, respiratory rate 20, blood pressure 105/62, saturating well on room air. Examination of the head: No trauma. Eyes without conjunctivitis. Oral cavity: Dry mucous membranes. No evidence of pharyngitis. Neck: Supple. No adenopathy. Lungs clear. Cardiac tones: Regular rate and rhythm with 2/6 systolic ejection murmur heard widely across the precordium. Abdomen is distended, diffusely mildly tender with multiple scars really covering the anterior abdomen. She has a colostomy in the left lower quadrant with brown liquid stool present. She has no He catheter. No suprapubic fullness. Examination of the extremities are warm and well perfused. There is no cellulitis or skin breakdown. No evidence of synovitis. Patient is neurologically intact. LABORATORIES: Include white blood count 9500, normal diff and note that the last CBC was actually from October 01. Creatinine 6.2, which of course reflects her ongoing dialysis. LFTs, AST and ALT are very, very low. In fact, alk phos mildly elevated at 175. Albumin 3.4. Procalcitonin 0.45 which is normal for her renal function. Micro studies include negative blood cultures. Negative C. diff PCR. The patient did have urine cultures done during an ED visit on the which yielded Klebsiella and Enterococcus but the patient is adamant she makes no urine and she believes this was largely a culture of some liquid stool. IMAGING STUDIES: Include a CT of the abdomen and pelvis done on the . CT scan of the abdomen shows a decompressed bladder with surrounding fat stranding. Little is seen with respect to possible fistula on the CT scan. IMPRESSION: At this point, I see no evidence for systemic infection. I discussed this case in detail with Dr. Hutchinson of the GI service and agree with instituting Flagyl which is therapeutic drug in fact for Crohn's disease but not for antimicrobial in this situation. I would discontinue all other systemic antibacterial drugs for fear of creating resistance without really much chance of benefit as the patient does not appear systemically infected. Even if she has an enterovaginal vaginal fistula, which seems likely, this is in and of itself is not an indication for antibiotics. Note that with the patient about to receive TPN to help to close these fistulas, she will be at impressively high risk for fungemia and/or bacteremia with highly resistant organisms and the provision of additional antibiotics which may not be needed and will only increase her risk of fungemia or have a drug-resistant bacteremia. RECOMMENDATIONS: 1. I would check a MRSA-PCR of the nares and place the patient in isolation if this is positive and then institute Bactroban therapy as she is well known to have had serious MRSA infections in the past. 2. Will check a respiratory PCR panel given that she has had some recent sore throat and other symptoms which might be consistent with an upper respiratory tract viral infection. 3. Would discontinue her current antibiotic which includes levofloxacin as this will predispose her to a wide variety of problems. 4. I agree with the Flagyl at the dose prescribed by the GI team. 5. In the absence of any significant ongoing infection, ID will go ahead and sign off but thank you for this timely consult.
[2016-10-05] MEDS: Promethazine Inj 12.5 MG in 0.9% Sodium Chloride 50 ML IV PRN ×2 (00:19→11:52)
[2016-10-05 01:13] VITALS: BP 112/68; PULSE 82; RESP 17; O2SAT 95
--- NOTE | 2016-10-05 04:55 | NUR ---
PAIN/NAUSEA Pt. reported of nausea and abd pain this shift, administered PRN IV phenergan and IV dilaudid with effective results, 0 emesis noted, pt. ileostomy dressing CDI and reports usual watery stools with no blood noted at this time, Ind. in rm, call light in reach, vitals stable, hourly checks, continues with abo and will continue to monitor.
[2016-10-05 06:10] VITALS: BP 105/67; PULSE 79; RESP 17; O2SAT 96
[2016-10-05] MEDS: HYDROmorphone 1 mg/mL Inj IVPUSH PRN ×3 (07:38→14:20)
[2016-10-05] MEDS: Lanthanum Carbonate 500 mg Chewable Tablet PO SCH ×2 (08:00→12:00)
--- NOTE | 2016-10-05 08:00 | NUR ---
Dialysis Pt taken over in bed to room 244-2 for dialysis.
[2016-10-05] MEDS ORDERED: LORazepam 1 mg Tablet PO ONE (09:25)
--- NOTE | 2016-10-05 10:15 | PCM.PNNEPH ---
Subjective Date of Service October 05, 2016 Subjective The patient has expressed considerable frustration with her hospital course and inability to be transferred to [place]. Discussed the case at length with Dr. Muniz and Dr. Gonzales from surgery. 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 She continues to have abdominal pain and passing stool through her vagina. Exam Vital Signs Vital Sign - Last Date Time Temp Pulse Resp B/P Pulse Ox O2 Delivery O2 Flow Rate FiO2 10/05/16 06:10 36.8 79 17 105/67 96 Room Air Intake and Output 10/04/16 10/04/16 10/05/16 Cumulative From/Thru 15:00 23:00 07:00 09/30/16 20:15 - 10/05/16 06:10 Intake Total 1120 ml 240 ml 5875 ml Output Total 0 ml 600 ml 2670 ml Balance 1120 ml -360 ml 3205 ml Intake Oral 1000 ml 240 ml 5040 ml IV Total 120 ml 815 ml Tube Irrigant 20 ml Output Urine Total 0 ml 0 ml 0 ml Stool Total 300 ml 920 ml Ultrafiltrate 1400 ml Other 300 ml 350 ml # Bowel Movements 10 Exam Patient is quite upset and I have talked with her once again today. Neck is supple without adenopathy, thyromegaly, or jugular venous distention. Lungs are clear to auscultation. Heart is regular and rhythmical with a soft systolic murmur. Abdomen shows diminished bowel sounds and once again demonstrates diffuse tenderness and rebound. Extremities show any evidence of any clubbing, cyanosis, or edema. Skin turgor is good. Lab and Diagnostics Result Diagram: 10/01/1662110/05/16 0618 X-Rays, CTs and MRIs PROCEDURE: CT ABDOMEN AND PELVIS WITHOUT CONTRAST ([id number]) INDICATIONS: lower abdominal pain TECHNIQUE: Noncontrast 5 mm thick sections acquired from the diaphragms to the symphysis. 5 mm coronal and sagittal reformats were then performed. For radiation dose reduction, the following was used: automated exposure control, adjustment of mA and/or kV according to patient size. COMPARISON: [facility], CT, CT ABD PELVIS WO CON, 10/03/2015, 19:56. FINDINGS: Image quality: Excellent. ABDOMEN: Bibasilar scarring/atelectasis. Grossly unchanged 6 mm nodule seen in the right lung base on image 3 is unchanged since 10/03/15. Heart normal size. There coronary artery calcifications. Unenhanced liver grossly unremarkable. There is midline upper anterior abdominal wall laxity. Spleen unremarkable. Gallbladder surgically absent. No biliary ductal dilatation. Pancreas and adrenal glands within normal limits. Bilateral renal cortical scarring and atrophy. There is a exophytic right renal cyst which is also unchanged. Peritoneum and bowel: No evidence of bowel obstruction. Postsurgical changes related to presumed cholectomy, and left lower quadrant ostomy. No free fluid or air. Nodes and vessels: No retroperitoneal or mesenteric adenopathy by size criteria. Aorta and inferior vena cava are normal in caliber. Miscellaneous: There is midline laxity of the lower abdominal wall PELVIS: Genitourinary: Bladder is decompressed therefore grossly unremarkable however there is surrounding inflammatory fat stranding Miscellaneous: No inguinal hernias or adenopathy. Bones: No suspicious bony lesions. No vertebral body compression fractures. IMPRESSION: Decompressed bladder however surrounding inflammatory fat stranding and possible wall thickening raising the possibility of cystitis. Please correlate clinically and with urinalysis data. Elsewhere, no acute abnormality or interval change. Dictated by: Charlie Lacy M.D. on 09/25/2016 at 20:41 Approved by: Charlie Lacy M.D. on 09/25/2016 at 20:47 Plan Impression Impression #1 end-stage renal disease dialysis dependent number to diabetic nephropathy #3 exacerbation of Crohn's disease number for complicated urinary tract infection with Klebsiella and enterococcus which is stable at this point # 4 intraoral vaginal and intravesicular fistula was Recommendations #1 the patient was dialyzed today for 3-1/2 hours on a bronchopleural max dialyzer, 3 potassium bath, citrus 8 as anticoagulant and will take 2 L of fluid off. I have spent approximately 20 minutes talking with Mrs. Kenney has had Mrs. Leigh huston the transaction advisory services manager for dialysis unit. Total time his spent 35 minutes. Norbert Burch DO October 05, 2016 10:15
[2016-10-05 10:45] VITALS: PULSE 75
[2016-10-05] MEDS: Ondansetron 2 mg/mL 2 mL Inj IVPUSH PRN (11:57)
--- NOTE | 2016-10-05 12:18 | PCM.DIMED ---
Discharge Instructions Date of Service October 05, 2016 Dates of Hospitalization September 30, 2016 at 16:44 Discharge Diagnosis Discharge Diagnosis #. complicated UTI, POA, due to Enterococcus/Klebsiella, due to colovesical, colovaginal fistula. not apparent on recent CT abd/pelvis. 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 POA and stable. 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 #Hyperparathyroidism, POA, stable, #Depression, POA, stable, #Hyperlipidemia, POA, stable, #Insomnia, POA and stable, #RLS, POA, stable, #Chronic right hip pain secondary to OA, POA. Diet Discharge Diet: Heart Healthy, Renal Diet Activity Discharge Activity: Limited until seen by PCP Call your provider Call your provider for: Fever or Chills, Shortness of breath, Bleeding, Chest pain, Vomitting, Excessive diarrhea, Weakness (unilateral) Patient Instructions Patient Instructions You were hospitalized due to complicated UTI. Treated with antibiotics. We suspect you are having rectovaginal and colovesical fistula. Please continue metronidazole for [address] Gonzales recommends you be transferred to [facility] for definitive surgery. He tried to transfer you directly but was not possible. He will arrange outpatient referral to a surgeon at [facility] for you .Please call his office if you do not hear from him in the next 3- 4 days . please follow up with Dr Kim for medical management of Crohn's meanwhile. Follow-up Provider: Gabriella Horn MD Follow-up with PCP in: 2 weeks Provider: Derik Gonzales MD Follow-up in: 1 week Mid-level Provider (F9): Ezequiel Kim MD Follow-up with Mid-level in: 1 week Tomas Rousseau MD October 05, 2016 12:18
[2016-10-05] MEDS ORDERED: METR500T PO (12:28)
--- NOTE | 2016-10-05 13:19 | NUR ---
Dialysis note 4 hr HD tx 3400ml net UF removed with extra rinse for pt off to BR X1 Medicated for nausea and pain and anxiety during tx. VSS. See DTR for complete vitals. 2 15 g needles to ALEN fistula. QB 450 Pt rested comfortably thru tx Sureseal/clamps X10 mins Report given and pt returned to room stable.
--- NOTE | 2016-10-05 13:59 | PCM.DC.MED ---
Discharge Summary Date of Service October 05, 2016 Dates of Hospitalization Date of Hospital Admission September 30, 2016 at 16:44 Date of Discharge: October 05, 2016 Providers: Admitting Physician: Juan Antonio Salgado MD Primary Care Physician: Gabriella Horn MD Attending Physician: Juan Antonio Salgado MD Diagnosis at Time of Discharge Diagnosis at Time of Discharge #. complicated UTI, POA, due to Enterococcus/Klebsiella, due to colovesical, colovaginal fistula. not apparent on recent CT abd/pelvis. 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 POA and stable. 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 #Hyperparathyroidism, POA, stable, #Depression, POA, stable, #Hyperlipidemia, POA, stable, #Insomnia, POA and stable, #RLS, POA, stable, #Chronic right hip pain secondary to OA, POA. Consultations surgery Dr Gonzales nephrology Dr Burch Procedures XRay, CTs & MRIs PROCEDURE: CT ABDOMEN AND PELVIS WITHOUT CONTRAST ([id number]) INDICATIONS: lower abdominal pain TECHNIQUE: Noncontrast 5 mm thick sections acquired from the diaphragms to the symphysis. 5 mm coronal and sagittal reformats were then performed. For radiation dose reduction, the following was used: automated exposure control, adjustment of mA and/or kV according to patient size. COMPARISON: [facility], CT, CT ABD PELVIS WO CON, 10/03/2015, 19:56. FINDINGS: Image quality: Excellent. ABDOMEN: Bibasilar scarring/atelectasis. Grossly unchanged 6 mm nodule seen in the right lung base on image 3 is unchanged since 10/03/15. Heart normal size. There coronary artery calcifications. Unenhanced liver grossly unremarkable. There is midline upper anterior abdominal wall laxity. Spleen unremarkable. Gallbladder surgically absent. No biliary ductal dilatation. Pancreas and adrenal glands within normal limits. Bilateral renal cortical scarring and atrophy. There is a exophytic right renal cyst which is also unchanged. Peritoneum and bowel: No evidence of bowel obstruction. Postsurgical changes related to presumed cholectomy, and left lower quadrant ostomy. No free fluid or air. Nodes and vessels: No retroperitoneal or mesenteric adenopathy by size criteria. Aorta and inferior vena cava are normal in caliber. Miscellaneous: There is midline laxity of the lower abdominal wall PELVIS: Genitourinary: Bladder is decompressed therefore grossly unremarkable however there is surrounding inflammatory fat stranding Miscellaneous: No inguinal hernias or adenopathy. Bones: No suspicious bony lesions. No vertebral body compression fractures. IMPRESSION: Decompressed bladder however surrounding inflammatory fat stranding and possible wall thickening raising the possibility of cystitis. Please correlate clinically and with urinalysis data. Elsewhere, no acute abnormality or interval change. Dictated by: Charlie Lacy M.D. on 09/25/2016 at 20:41 Approved by: Charlie Lacy M.D. on 09/25/2016 at 20:47 Brief History per HPI 71-year-old female on hemodialysis with a very complicated surgical history and medical history including Crohn's disease with complete colectomy and partial small bowel removal at the age of 11 with permanent ileostomy who present to the ED with complaints of abdominal pain and fecal material being passed through her vagina. Patient states that she had a total of 22 operations since 11 years old, including multiple bowel obstructions and episodes of septicemia, including MRSA in 2008. In 2008 patient underwent emergent surgery in [place] due to sepsis and notable vaginal fistula. Patient followed up at [facility] but surgical intervention on the fistula appears to have been declined by the surgeon at that time due to patient doing medically well. Patient states that she is in significant pain from stool passing through her vagina which is occurring up to 5 or 6 times daily. Patient initially states that there was no blood in her ostomy bag with your vagina but now she has noticed blood with fecal material in her ostomy bag that started yesterday. Patient denies chest pain, shortness breath, dizziness, nausea/vomiting, or fever/chills. Patient is being followed by nephrology and surgery, and current recommendations are that the patient should be transferred to [facility] for surgical closure of this fistula. GI was consulted for additional evaluation. In regards to the patient's Crohn's disease, she states that she is off of any sort of treatment medication. She was previously on mesalamine 2 years ago but stopped after a year due to severe side effects including psoriatic skin changes. Hospital Course #. UTI, POA, due to Enterococcus/Klebsiella, concerning for colovesical, colovaginal fistula. not apparent on recent CT abd/pelvis. - has been seen by Julieth Godfrey and Dr. Gonzales. -s/p vancomycin, cefepime in dialysis center, based on culture sensitivity, -no IVF, no s/s of sepsis, monitor v/s, trends fever curve, -Consulted GI , -Spoke with Surgery Dr Gonzales, he is trying to get her a surgeon in [facility] for transfer. not able to transfer her directly. He will arrange for outpatient referral Treated with Levaquin. Discharge on Flagyl for 2 weeks. -Advised to see meanwhile to see if she would consider Remicade infusion #ESRD, POA and stable, on HD T,,Tue, To continue her usual hemodialysis schedule #Paroxysmal AFib, POA and stable, continue Plavix 75mg daily; metoprolol #Diabetes Mellitus type 2, POA and stable, diet controlled, #History of Crohn's disease. POA and stable. Status post total colectomy and ileostomy, s/p Remicade infusion once a month, currently not on meds, followed by Dr. Kim. #History of heparin-induced thrombocytopenia. DVT prophylaxis will be SCDs and she is on Plavix. #Hyperparathyroidism, POA, stable, Continue home doses of Cinacalcet and Sevelamer #Depression, POA, stable, continue fluoxetine 40mg PO qam #Hyperlipidemia, POA, stable, continue Atorvastatin 40mg PO qhs #Insomnia, POA and stable, continue Zolpidem Tartrate 5mg #RLS, POA, stable, continue Ropinirole 2mg PO qhs #Chronic right hip pain secondary to OA, POA. -continue Oxycodone 5mg PO q6h PRN -continue Gabapentin 900mg PO TID -continue Leflunomide 20mg PO qhs Discharge home. Outpatient referral to [facility] to be arranged by Dr. Gonzales Condition on discharge stable Exam Vital Signs (Last) Date Time Temp Pulse Resp B/P Pulse Ox O2 Delivery O2 Flow Rate FiO2 10/05/16 10:45 75 10/05/16 06:10 36.8 17 105/67 96 Room Air Exam Alert and oriented -3, no distress. Fluent speech Anicteric sclera. Lungs are clear with normal rate and effort Heart is regular without murmur gallop or rub Abdomen soft nontender, flat. Ostomy is in place. She has left and right lower quadrant tenderness with some rebound. Extremities are free of edema. Skin is free of rash or lesions.\ Pelvic and rectal exam deferred Test 09/30/16 17:40 10/01/16 06:22 10/05/16 06:18 Hold Odonnell Top Tube Received (Received) White Blood Count 9.5th/mm3 (3.8-10.1) Red Blood Count 3.35mil/mm3 (3.90-5.20) Hemoglobin 10.8g/dL (12.0-15.6) Hematocrit 33.2% (35.0-46.0) Mean Corpuscular Volume 99.1fL (81-100) Mean Corpuscular Hemoglobin 32.2pg (27.0-35.0) Mean Corpuscular Hemoglobin Concent 32.5% (32.0-37.0) Red Cell Distribution Width 14.4% (12.3-15.4) Platelet Count 260bil/L (150-400) Neutrophils (%) (Auto) 68.8% (40-74) Lymphocytes (%) (Auto) 17.0% (14-46) Monocytes (%) (Auto) 7.5% (4-12) Eosinophils (%) (Auto) 2.8% (0-5) Basophils (%) (Auto) 0.5% (0-3) Phosphorus Level 6.0mg/dL (2.5-4.9) Magnesium Level 1.4mg/dL (1.6-2.6) Procalcitonin 0.45ng/mL (0.00-0.08) Sodium Level 131mEq/L (134-144) Potassium Level 4.8mEq/L (3.5-5.2) Chloride Level 91mEq/L (97-108) Carbon Dioxide Level 20mmol/L (18-29) Blood Urea Nitrogen 78mg/dL (8-27) Creatinine 7.96mg/dL (0.57-1.00) Estimat Glomerular Filtration Rate 7mL/min (>59) Glucose Level 106mg/dL (60-99) Calcium Level 8.1mg/dL (8.5-10.1) Total Bilirubin 0.2mg/dL (0.0-1.2) Aspartate Amino Transf (AST/SGOT) 11U/L (0-50) Alanine Aminotransferase (ALT/SGPT) 9U/L (0-32) Alkaline Phosphatase 195U/L (25-165) Total Protein 5.4g/dL (6.4-8.4) Albumin 3.1g/dL (3.4-5.0) Discharge Medications Discharge Medications Atorvastatin (Lipitor) 20 Mg Tablet 40 MG PO HS (Reported) Cholecalciferol (Vitamin D3) (Vitamin D) 50,000 Unit Capsule 50,000 UNIT PO WEEKLY (Reported) Cinacalcet HCl (Sensipar) 60 Mg Tablet 60 MG PO HS (Reported) Clopidogrel (Clopidogrel) 75 Mg Tablet 75 MG PO QAM (Reported) Doxercalciferol (Hectorol) 0.5 Mcg Capsule Unknown Dose PO TuThSa (Reported) RECEIVES WITH DIALYSIS, UNKNOWN DOSE Gabapentin (Gabapentin) 300 Mg Capsule 900 MG PO TID (Reported) Lanthanum Carb Chew (Fosrenol Chew) 500 Mg Chew 1,000 MG PO TIDWM (Reported) Metronidazole (Flagyl) 500 Mg Tablet 500 MG PO BID Prescribed by: KEVIN DIAZ MD Ropinirole (Ropinirole) 2 Mg Tablet 2 MG PO HS (Reported) Sevelamer Carbonate (Renvela) 800 Mg Tablet 1,600 MG PO TIDWM (Reported) Zolpidem (Ambien) 5 Mg Tablet 5 MG PO HS (Reported) As needed Hydroxyzine Pamoate (Vistaril) 25 Mg Capsule 25 MG PO QID PRN PRN For Itching ( Reported) Meclizine (Bonine) 25 Mg Tab.chew 12.5 MG PO TID PRN PRN VERTIGO, NAUSEA/ VOMITING (Reported) Nitroglycerin SL (Nitrostat) 0.4 Mg Tab.subl 0.4 MG SL Q5MIN PRN PRN ANGINA ( Reported) Ondansetron (Ondansetron) 4 Mg Tablet 4 MG PO TID PRN PRN For Nausea (Reported) STATES TAKES AT BEDTIME SCHEDULED Promethazine (Promethazine) 25 Mg Tablet 25 MG PO Q6H PRN PRN For Nausea/ Vomiting (Reported) oxyCODONE (oxyCODONE) 5 Mg Tablet 5 MG PO Q6H PRN PRN For Pain (Reported) Followup Plan Disposition: Home Discharge Diet: Heart Healthy, Renal Diet Discharge Activity: Limited until seen by PCP Patient Instructions You were hospitalized due to complicated UTI. Treated with antibiotics. We suspect you are having rectovaginal and colovesical fistula. Please continue metronidazole for [address] Gonzales recommends you be transferred to [facility] for definitive surgery. He tried to transfer you directly but was not possible. He will arrange outpatient referral to a surgeon at [facility] for you .Please call his office if you do not hear from him in the next 3- 4 days . please follow up with Dr Kim for medical management of Crohn's meanwhile. Follow-up Provider: Gabriella Horn MD Follow-up with PCP in: 2 weeks Provider: Derik Gonzales MD Follow-up in: 1 week Mid-level Provider: Ezequiel Kim MD Follow-up with Mid-level in: 1 week Time spent 40 minutes coordinating discharge copies to: Derik Gonzales MD; Gabriella Horn MD; Ezequiel Kim MD, Melaku MD October 05, 2016 13:59
--- NOTE | 2016-10-05 14:30 | NUR ---
Discharge Reviewed DC instructions with patient and . Both are extremely unhappy with the discharge. Planned to be transferred to for surgery. Stated understanding regarding discharge instructions. All belongings taken. Pt taken out in w/ to home in private vehicle with .
--- NOTE | 2016-10-05 15:25 | NUR ---
Social Work-discharge: Data:EMR Reviewed. Pt is on day 5 of hospitalization for pyelonephritis per H&P. Pt is medically stable for discharge. Pt resides at home with her spouse. MD has been working to get pt transferred to hospital down [facility], but no accepting MD. pt to follow up outpt in 2 weeks for an appointment. Pt and confirm home no needs. Pt has been up independent in her room. Pt to continue with dialysis. Pt's to provide transport home. All updated and agreeable to plan. Assessment:Pt who is independent at baseline. Plan:Pt to discharge home today via POV. No discharge needs identified. All updated and agreeable to plan. RIVERA Dumont
[2016-10-07] MEDS ORDERED: Ergocalciferol (Vit D2) 50,000 Unit Capsule PO SCH (08:30)
== END 2016-10-05 14:32 | disposition home or self-care (01) | DRG 689 ==
LOC: MOC 16:44
PROVIDERS: ADMIT Internal Medicine; ATTEND Internal Medicine
PROC: 5A1D60Z (ICD-10-PCS; principal; 2016-10-02)
DX: N39.0 Urinary tract infection, site not specified (principal); N18.6 End stage renal disease; K50.90 Crohn's disease, unspecified, without complications; N32.1 Vesicointestinal fistula; N82.4 Other female intestinal-genital tract fistulae; I13.11 Hypertensive heart and chronic kidney disease without heart failure, with stage 5 chronic kidney disease, or end stage renal disease; E87.1 Hypo-osmolality and hyponatremia; Z99.2 Dependence on renal dialysis; Z79.02 Long term (current) use of antithrombotics/antiplatelets; Z86.74 Personal history of sudden cardiac arrest; Z86.14 Personal history of Methicillin resistant Staphylococcus aureus infection; Z86.73 Personal history of transient ischemic attack (TIA), and cerebral infarction without residual deficits; B95.2 Enterococcus as the cause of diseases classified elsewhere; B96.1 Klebsiella pneumoniae [K. pneumoniae] as the cause of diseases classified elsewhere; I48.0 Paroxysmal atrial fibrillation; E21.3 Hyperparathyroidism, unspecified; F32.9 Major depressive disorder, single episode, unspecified; L29.9 Pruritus, unspecified; E78.5 Hyperlipidemia, unspecified; G47.00 Insomnia, unspecified; G25.81 Restless legs syndrome; M16.11 Unilateral primary osteoarthritis, right hip; E11.22 Type 2 diabetes mellitus with diabetic chronic kidney disease; Z90.49 Acquired absence of other specified parts of digestive tract; Z93.3 Colostomy status; E11.21 Type 2 diabetes mellitus with diabetic nephropathy

== ENCOUNTER 2016-10-17 18:37 | Emergency (ER) | payer MEDICARE, OTHER ==
[~2016-10-17] VITALS: Ht 157.5 cm; Wt 72.0 kg
[~2016-10-17 18:37] MED LIST changes: -FLUO40CA PO; -LEFL20TA18 PO; -LIDO1KIT TP; +METR500T PO
[2016-10-17 18:52] VITALS: BP 127/110; PULSE 89; RESP 28; O2SAT 97
--- NOTE | 2016-10-17 19:13 | ED.REPORT ---
HPI-Abd Pain F 40 and Over Date of Service Oct 17, 2016 ED Provider: Larry Shelby MD 71 y/o female on hemodialysis and with a hx of thyroid disease, DM and Crohn's disease presents to the ED complaining of waxing and waning abdominal pain, onset 2 days ago. Pt reports bowel obstruction. She has an ileostomy. She has not passed any gas and passed very little stool this morning. Associated sx include nausea, vomiting and abdominal swelling. She also complains of a UTI and a draining anal fistula, for which she is currently taking antibiotics. Denies fever. She does not make any urine. Nursing Notes Stated Complaint: POSSIBLE BOWL OBSTRUCTION Chief Complaint: Female Abdominal Pain Nursing Notes Reviewed: Yes ([employer], [employer] not reconciled) Allergies: Coded Allergies: Penicillins (Verified Allergy, Severe, Anaphylaxis, 10/17/16) Sulfa (Sulfonamide Antibiotics) (Verified Allergy, Severe, ANAPHYLAXIS, 10/17/16) NSAIDS (Non-Steroidal Anti-Inflamma (Verified Allergy, Intermediate, " HARD ON KIDNEYS", 10/17/16) morphine (Verified Allergy, Intermediate, "goes crazy", 10/17/16) aspirin (Verified Allergy, Unknown, tongue swells, 10/17/16) heparin (Verified Allergy, Unknown, HEPARIN INDUCED THROMBOCYTOPENIA, ) HIT latex (Verified Allergy, Unknown, weeping rash, 10/17/16) Uncoded Allergies: CHLORAPREP (Allergy, Severe, rash/itching, 01/08/16) weeping rash Foam Dressing (Allergy, Severe, Hives, 10/09/13) Deep redness, pain, and swelling to skin occurs when foam dressing is used. Scheduled Atorvastatin (Lipitor) 20 Mg Tablet 40 MG PO HS Cholecalciferol (Vitamin D3) (Vitamin D) 50,000 Unit Capsule 50,000 UNIT PO WEEKLY Cinacalcet HCl (Sensipar) 60 Mg Tablet 60 MG PO HS Clopidogrel (Clopidogrel) 75 Mg Tablet 75 MG PO QAM Doxercalciferol (Hectorol) 0.5 Mcg Capsule Unknown Dose PO TuThSa RECEIVES WITH DIALYSIS, UNKNOWN DOSE Gabapentin (Gabapentin) 300 Mg Capsule 900 MG PO TID Lanthanum Carb Chew (Fosrenol Chew) 500 Mg Chew 1,000 MG PO TIDWM Metronidazole (Flagyl) 500 Mg Tablet 500 MG PO BID Ropinirole (Ropinirole) 2 Mg Tablet 2 MG PO HS Sevelamer Carbonate (Renvela) 800 Mg Tablet 1,600 MG PO TIDWM Zolpidem (Ambien) 5 Mg Tablet 5 MG PO HS Scheduled PRN Hydroxyzine Pamoate (Vistaril) 25 Mg Capsule 25 MG PO QID PRN PRN For Itching Meclizine (Bonine) 25 Mg Tab.chew 12.5 MG PO TID PRN PRN VERTIGO, NAUSEA/ VOMITING Nitroglycerin SL (Nitrostat) 0.4 Mg Tab.subl 0.4 MG SL Q5MIN PRN PRN ANGINA Ondansetron (Ondansetron) 4 Mg Tablet 4 MG PO TID PRN PRN For Nausea STATES TAKES AT BEDTIME SCHEDULED Promethazine (Promethazine) 25 Mg Tablet 25 MG PO Q6H PRN PRN For Nausea/ Vomiting oxyCODONE (oxyCODONE) 5 Mg Tablet 5 MG PO Q6H PRN PRN For Pain General Time Seen by MD: 19:10 Chief Complaint Abdominal pain Hx Obtained From: Patient Arrived By: Walk-in Sudden in Onset?: Yes Past Medical History Past Medical History Notes: PCP: Dr. Horn Fish Machine Feeder: Dr. Burch Admit 09/2016 complicated UTI, suspected fistula. Please see surgery consultation 10/03/2016 by Faraz Gonzales concern for the complexity of the patient," very hostile abdomen" with recommendations at that time regarding the colovesicular fistula of referral to [facility] Past Medical History History of Crohn's disease. Status post total colectomy and ileostomy, previously treated with Remicade infusion once a month (not currently on medications for Crohn's 10/2016) ESRD following cardiac arrest, on T, , and Tue dialysis History of recurrent small bowel obstructions and adhesions History of subdural hematoma. History of heparin-induced thrombocytopenia. History of recent abdominal wall cellulitis with MRSA, for which the patient finished a course of IV vancomycin just yesterday. History of TIA, left sided weakness Does not drive due to chronic vertigo Hx cardiac arrest during abd surgery Diabetes mellitus, GERD, Hypertension, Stroke Atrial fibrillation, Depression Osteoarthritis RLS Hx of known rectovaginal fistula History of MRSA Past Surgical History Bowel resection Ileostomy Colectomy Multiple surgeries for SBO Evacuation of subdural hematoma Patient reports "22 abdominal operations Reports: Cholecystectomy Family History Noncontributory Smoking History Former Smoker Social History POLST Form = FULL CODE 09/03/16 Alcohol Use: Denies alcohol use Drug Use: Denies drug use Other Social History: Good social support, , Local resident Occupation lives with Ambulatory Status Independent Review of Systems Reports: abdominal swelling Reports: draining anal fistula Constitutional: Denies: Fever GI: Reports: Abdominal pain, Nausea, Vomiting Complete sys rev & neg: except as marked. Physical Exam Vital Signs Vital Signs (First) Date Time Temp Pulse Resp B/P Pulse Ox O2 Delivery O2 Flow Rate FiO2 10/17/16 18:52 36.7 89 28 127/110 97 Room Air Initial VS: Reviewed, Vital signs abnormal (RR elev) Head / Eyes: Atraumatic, Normocephalic Neck: Full range of motion Extremities: Vascular intact, Neuro intact, No swelling, No tenderness Skin: Warm, Dry, No cyanosis Neurologic: Alert, Oriented, Nonfocal General/Constitutional: Awake, Alert, Cooperative Distress / Hydration: Positive: Distress severe (Severe pain) Respiratory / Chest: Atraumatic, Breath sounds NL, Breath sounds = bilat, No respiratory distress, No rales, No rhonchi, No wheezing Cardiovascular: Heart rate NL, Regular rhythm Heart Sounds / Murmur: Positive: Murmur present... (II/) Abdomen: Atraumatic Tenderness/Guarding/Rebound: Positive: Tender diffuse (Severely tender) Bowel Sounds / Distention: Positive: Distention moderate No gas or output in the ileostomy bag. Multiple scars on the abdomen No incarcerated hernia. Back: Atraumatic, Full range of motion Interpretation & Diagnostics Lab Results Interpretation Result Diagram: 10/17/16193910/17/161939 Test 10/17/16 19:40 White Blood Count 5.2th/mm3 (3.8-10.1) Red Blood Count 3.39mil/mm3 (3.90-5.20) Hemoglobin 11.0g/dL (12.0-15.6) Hematocrit 33.8% (35.0-46.0) Mean Corpuscular Volume 99.7fL (81-100) Mean Corpuscular Hemoglobin 32.4pg (27.0-35.0) Mean Corpuscular Hemoglobin Concent 32.5% (32.0-37.0) Red Cell Distribution Width 15.3% (12.3-15.4) Platelet Count 218bil/L (150-400) Neutrophils (%) (Auto) 58.6% (40-74) Lymphocytes (%) (Auto) 22.8% (14-46) Monocytes (%) (Auto) 10.7% (4-12) Eosinophils (%) (Auto) 6.3% (0-5) Basophils (%) (Auto) 1.0% (0-3) Sodium Level 133mEq/L (134-144) Potassium Level 4.5mEq/L (3.5-5.2) Chloride Level 86mEq/L (97-108) Carbon Dioxide Level 23mmol/L (18-29) Blood Urea Nitrogen 66mg/dL (8-27) Creatinine 5.96mg/dL (0.57-1.00) Estimat Glomerular Filtration Rate 10mL/min (>59) Glucose Level 154mg/dL (60-99) Lactic Acid Level 2.7mmol/L (0.4-2.0) Calcium Level 9.5mg/dL (8.5-10.1) Phosphorus Level 8.0mg/dL (2.5-4.9) Magnesium Level 1.6mg/dL (1.6-2.6) Total Bilirubin 0.2mg/dL (0.0-1.2) Aspartate Amino Transf (AST/SGOT) 19U/L (0-50) Alanine Aminotransferase (ALT/SGPT) 8U/L (0-32) Alkaline Phosphatase 254U/L (25-165) Total Protein 7.4g/dL (6.4-8.4) Albumin 4.2g/dL (3.4-5.0) Lipase 103U/L (13-60) Lab Results Interpretation: CBC normal CMP chronic renal failure CT Abd / Pelvis Interpretation IMPRESSION: The quality of visualization is quite limited by the absence of oral and intravenous contrast. No mass lesion is found nor is there active inflammatory process identified. The small bowel loops over the abdomen and pelvis have only mildly increased in caliber, and a focus of identifiable source of this interval change is not found. The exact differentiation between large and small bowel loops is very limited in this study. Colostomy or ileostomy left lower quadrant, showing no evidence of inflammation or peristomal hernia. Multiple areas of midline lower chest/abdomen/pelvis anterior body wall eventration but no sign of true herniation. 2.5 cm posterior directed presumed right renal cortical cyst previously present, and measuring water in density. This presumably is a simple cyst but is incompletely characterized by the current study.No acute bone or soft tissue abnormality is found. Dictated by: Denny Garcia M.D. on 10/17/2016 at 20:28 Approved by: Denny Garcia M.D. on 10/17/2016 at 20:35 Study type: Abdominal CT no contrast Interpretation / Wet Read by: Interpret - Radiologist Procedures NG Tube Insertion Time: 21:14 Procedure Performed by: ED physician Site of Insertion: Nare left # of Attempts: 1 Size of Oral/NG Tube: 16 Fr Placement/Verification/Secured: Inserted w/o difficulty, Placement by auscultation, Secured with nose guard, Verified by auscultation Post-Procedure / Complications: No complications, Tolerated procedure well, Patient stable Re-Eval/Medical Decision Med Decision/Clinical Course This is an extremely, medical complicated 71-year-old female who has a long history of Crohn's has developed a colovesical colovaginal fistula, has had a previous colectomy and ileostomy. She has had a partial small bowel removal at age 11 with a permanent ileostomy. She was recently hospitalized, please see the surgical consults and extensivebedtime-in the surgical team here is felt that she is medically complicated with a hostile abdomen, and recommended the patient be cared for at a tertiary facility with recommendation to follow up to go to [facility] for elective repair of the fistula. The patient presents tonight now developing acute pain, terrible cramping discomfort, decreased ileostomy output, and a concern stating this is very similar to what she has had previous bowel obstruction. She has had nausea and vomiting, she has had no fevers or sweats. She denies respiratory or cardiac symptoms. Exam she appears in severe discomfort, crampy abdominal pain. She has diffuse tenderness on repeated exams. She has multiple surgical scars and there is no gas or output in the ileostomy bag, I also do not appreciate palpable incarcerated hernia along her incision scars, but she is severely tender on repeated exams. Also a renal failure patient on dialysis, due for dialysis tomorrow. An IV placed and received titrated fentanyl, which is the medication she indicates his work best-along with promethazine which is the medication she indicates works best for nausea. Labs were obtained and are notable for chronic renal failure, and a CT scan was obtained, the patient with nausea vomiting and will take by mouth contrast, there are chronic renal failure should not receive IV contrast, to the CT is somewhat limited. Definitive pathology or obstruction was not seen, although some mild dilation of the small bowel noted. However despite the absence of definitive findings on CT, the patient continues to have ongoing fairly severe pain and abdominal tenderness. Consult with surgery and with Dr. Araujo who knows the patient. Given her medical complexity, he does not think it is appropriate to admit her here and recommends transfer to a tertiary care facility such as [facility]. Which is a being sense, and the [facility] is being contacted. The patient gets enough features of concern for bowel obstruction, spite the absence definitive radiographs, I went ahead and placed an NG tube for further management patient is having ongoing discomfort and nausea. The tube was placed without difficulty Source of Hx: Old records Re-Evaluation/Progress #1: Time of Eval: 20:42 Patient Status: Mild relief Re-Evaluation/Progress Note: Reckecked pt. Discussed imaging results and diagnosis. All questions addressed. Re-Evaluation/Progress #2: Time of Eval: 20:58 Patient Status: Mild relief Re-Evaluation/Progress Note: Rechecked pt. Discussed the plan to transfer pt to [facility]. She understands and agrees with the plan. All questions addressed. Consultation #1: Referral / Consult Name: James Araujo MD Consulted With: Surgeon Call Returned at: 20:43 Office Machines Teacher: Agrees with eval Note: Dr. Araujo recommends the pt be transferred to [facility]. Consultation #2: Call Returned at: 21:52 Office Machines Teacher: Accepts admit Note: Dr. Reed at [facility] accepts transfer and states he will call back with information on next step. Differential Diagnosis: Positive: Acute abdominal pain, Bowel obstruction, Negative: Abdominal aortic aneurysm, Appendicitis Counseled Regarding: Diagnosis, Lab results, Need for transfer Discharge & Departure Primary Impression: Acute abdominal pain Additional Impressions: Colovesical fistula Chronic renal failure Chronic kidney disease stage: stage 5 Qualified Code: N18.5 - Chronic kidney disease, stage 5 Bowel obstruction Intestinal obstruction type: unspecified Qualified Code: K56.60 - Unspecified intestinal obstruction Disposition: Transfer, Acute Care Facility Transfer Reason: Higher level of care Patient Status: Stable for transfer Patient Informed: Yes Discharge Condition All VS Reviewed: Yes Referrals: Gabriella Horn MD (PCP) Kimberly Attestation Portions of this note were transcribed by Gina Fowler. I, , personally performed the history, physical exam and medical decision-making;I reviewed and confirmed the accuracy of the information in the transcribed note. Signed by Kimberly Vázquez. 10/17/16 21:10 copies to: Gabriella Horn MD, Matthew F MD Oct 17, 2016 19:13 Gina Fowler Oct 17, 2016 19:37
[2016-10-17] MEDS ORDERED: Ondansetron 2 mg/mL 2 mL Inj IVPUSH ONE (19:15)
[2016-10-17] MEDS ORDERED: HYDROmorphone 1 mg/mL Inj IVPUSH PRN (19:15)
[2016-10-17] MEDS ORDERED: 0.9% Sodium Chloride 1,000 ML IV ONE ×2 (19:15)
[2016-10-17] MEDS ORDERED: Promethazine Inj 25 MG in 0.9% Sodium Chloride-Pha MIX 100 ML IV ONE ×2 (19:40→23:10)
[2016-10-17] MEDS: fentaNYL-PF 50 mCg/mL 2 mL Inj IVPUSH PRN ×8 (19:58→23:51)
[2016-10-17 20:02] LABS: EOSINOPHILS % (AUTO) 6.3 % (0-5); MONOCYTES % (AUTO) 10.7 % (4-12); Mean Corpuscular Hemoglobin 32.4 pg (27.0-35.0); Mean Corpuscular Volume 99.7 fL (81-100); NEUTROPHILS % (AUTO) 58.6 % (40-74); Platelet Count 218 bil/L (150-400)
[2016-10-17 20:17] LABS: Magnesium 1.6 mg/dL (1.6-2.6)
--- NOTE | 2016-10-17 20:37 | DRSVH ---
PROCEDURE: CT ABDOMEN AND PELVIS WITHOUT CONTRAST ([id number]) INDICATIONS: ro SBO, renal failure TECHNIQUE: Noncontrast 5 mm thick sections acquired from the diaphragms to the symphysis. 5 mm coronal and sagi ttal reformats were then performed. For radiation dose reduction, the following was used: automated exposure control, adjustment of mA and/or kV according to patient size. COMPARISON: None. FINDINGS: Image quality: Mildly degraded by absence of oral and intravenous contrast. ABDOMEN: Lung bases: Lung bases are clear. Heart size is normal. Solid organs: Liver and spleen are normal in size. Gallbladder has been surgically resected. Pancr eas is normal in contours. No adrenal nodules. Kidneys are normal in size, without hydronephrosis o r nephrolithiasis. A stable appearing posterior presumed cysts is seen at the mid kidney on the righ t measuring up to 2.5 cm. Peritoneum and bowel: Unenhanced small bowel loops demonstrate normal wall thickness but mildly incr eased caliber. No free fluid or air. Nodes and vessels: No retroperitoneal or mesenteric adenopathy by size criteria. Aorta and inferior vena cava are normal in caliber. Miscellaneous: No ventral hernias but there is ventral body wall eventration along the midline of th e lower chest/abdomen/pelvis. PELVIS: Genitourinary: Bladder wall thickness is normal. Miscellaneous: No inguinal hernias or adenopathy. Bones: No suspicious bony lesions. No vertebral body compression fractures. IMPRESSION: The quality of visualization is quite limited by the absence of oral and intravenous con trast. No mass lesion is found nor is there active inflammatory process identified. The small bowel loops over the abdomen and pelvis have only mildly increased in caliber, and a focus of identifiable source of this interval change is not found. The exact differentiation between large and small bowel loops is very limited in this study. Colostomy or ileostomy left lower quadrant, showing no evidence of inflammation or peristomal hernia. Multiple areas of midline lower chest/abdomen/pelvis anterior body wall eventration but no sign of true herniation. 2.5 cm posterior directed presumed right renal cortical cyst previously present, and measuring water in density. This presumably is a simple cyst but is incompletely characterized by the current study. No acute bone or soft tissue abnormality is found. Dictated by: Denny Garcia M.D. on 10/17/2016 at 20:28 Approved by: Denny Garcia M.D. on 10/17/2016 at 20:35
[2016-10-17] MEDS ORDERED: Lidocaine 2% 5 mL Topical Jelly TOPICAL ONE (20:55)
[2016-10-17] MEDS ORDERED: Lidocaine 2%-Epi 1:100,000 20 mL Inj SUBQ ONE (20:55)
[2016-10-18] MEDS: fentaNYL-PF 50 mCg/mL 2 mL Inj IVPUSH PRN ×3 (00:19→00:51)
[2016-10-18 00:37] VITALS: BP 126/93; PULSE 81; RESP 22; O2SAT 97
== END 2016-10-18 01:06 | disposition short-term general hospital (02) ==
LOC: SED 18:37
DX: R10.0 Acute abdomen (principal); N32.1 Vesicointestinal fistula; K56.60 Unspecified intestinal obstruction; I12.0 Hypertensive chronic kidney disease with stage 5 chronic kidney disease or end stage renal disease; N18.5 Chronic kidney disease, stage 5; E11.22 Type 2 diabetes mellitus with diabetic chronic kidney disease; K21.9 Gastro-esophageal reflux disease without esophagitis; E07.9 Disorder of thyroid, unspecified; K50.912 Crohn's disease, unspecified, with intestinal obstruction; Z99.2 Dependence on renal dialysis; Z86.73 Personal history of transient ischemic attack (TIA), and cerebral infarction without residual deficits; Z86.14 Personal history of Methicillin resistant Staphylococcus aureus infection; Z87.891 Personal history of nicotine dependence; Z93.2 Ileostomy status; Z79.02 Long term (current) use of antithrombotics/antiplatelets; Z79.899 Other long term (current) drug therapy; Z88.0 Allergy status to penicillin; Z88.2 Allergy status to sulfonamides; Z88.5 Allergy status to narcotic agent; Z88.6 Allergy status to analgesic agent; Z88.8 Allergy status to other drugs, medicaments and biological substances
CPT/HCPCS: 36415; 43752; 74176; 80053; 83605; 83690; 83735; 84100; 85025; 87040; 93005; 96361; 96374; 96375; 96376; 99285; J2250; J2550; J3010; J7030

== ENCOUNTER 2016-11-17 00:20 | Day surgery (SDC) | payer MEDICARE, OTHER ==
[2016-11-17] VITALS (9 sets, daily range): BP systolic 89–160; BP diastolic 57–79; PULSE 72–93; RESP 12–16; O2SAT 96–98
[~2016-11-17] VITALS: Ht 157.5 cm; Wt 72.5 kg
[~2016-11-17 00:20] MED LIST changes: -GABA-502 PO
[2016-11-17] MEDS ORDERED: ARGATROBAN IV SCH ×2 (09:20)
[2016-11-17] MEDS ORDERED: SODIUM CHLORIDE IV SCH ×2 (09:20)
[2016-11-17] MEDS ORDERED: 0.9% Sodium Chloride 250 ML ONE (09:45)
[2016-11-17] MEDS ORDERED: Promethazine 25 mg/mL Inj IV ONE (10:00)
[2016-11-17] MEDS ORDERED: Promethazine 25 mg/mL Inj IM ONE (10:04)
--- NOTE | 2016-11-17 10:16 | NUR ---
Admitted for a fistulagram due to high pressures during dialysis for a Left upper arm fistula. Pt has a very complicated case history - numerous surgeries and complications. Has been on dialysis for 1 year - last dialysis November 16. Labs drawn last - no new labs requested. Off of Plavix 75mg PO since last TuesdayNovember 13. Dr Emmanuel aware of allergies and last Plavix dose. Chronic nausea since dialysis on 11/16/16 - given Phenergan 12.5mg IM Left gluteal prior to laboratory equipment cleaner procedure.
[2016-11-17] MEDS ORDERED: fentaNYL-PF 50 mCg/mL 2 mL Inj ONE (10:39)
--- NOTE | 2016-11-17 11:50 | NUR ---
Returned from rn labor delivery post fistulagram balloon angioplasty to a small narrowed area of the fistula's arterial branch. Purse string in place/secured and dry. Plan for 2 hours recovery - remove purse string after 2 hours.
--- NOTE | 2016-11-17 14:12 | NUR ---
Recovery 2 hour post balloon fistula angioplasty. Purse string removed at 1340 without difficulty. Site is intact with any ooze at time of discharge from [facility].
--- NOTE | 2016-11-17 14:48 | DRSVH ---
PROCEDURE: BALO ANGIOP CTR DIALYSIS SEG INDICATIONS: ESRD COMPARISON: None. Fluoroscopy time: 2.2 minutes. Technique: 1. Conscious sedation for 30 minutes. 2. Antegrade access of the venous outflow the left upper extremity fistula. 3. Sheath removal and hemostasis. 4. Retrograde access of the left upper extremity venous outflow. 5. Fistula performed in stations the level of the SVC and retrograde fistulogram at the arteriovenous anastomosis. 6. Balloon angioplasty of a focal high-grade stenosis at the peripheral portion of the outflow. 7. Completion fistulogram. 8. Sheath removal hemostasis. The indications, alternatives, benefits, risks, and complications of the procedure were explained to the patient.. Informed written consent was obtained and placed in the chart. The patient was luis miguel t to the angiography suite, and conscious sedation was administered intravenously by [facility] staff, while continuous cardiorespiratory monitoring was performed. Maximum sterile barrier technique was employed per standard protocol, including hand hygiene, cap, ma sk, sterile gown and gloves, and 2% chlorhexidine. One percent lidocaine was used to anesthetize the skin over the area of interest. Using a micropuncture kit, the venous outflow of the left upper extre mity fistula was accessed in an antegrade fashion. A fistulogram was performed through the micropunct ure sheath. Reflux fistulogram was performed as well at the arteriovenous anastomosis. The sheath was removed, and hemostasis was achieved. Next, retrograde access was performed with a micropuncture sheath slightly more centrally through the venous outflow of the left upper extremity fistula. The micropuncture sheath was exchanged for a richmond rt 6 Latvian sheath over an 035 wire. The tip of the O35 wire was advanced into the distal brachial ar judy. Balloon angioplasty was performed first with a 4 mm x 40 mm high-pressure balloon for a focal h igh-grade stenosis at the peripheral portion of the venous outflow, adnexa with a 5 mm x 40 mm high-p ressure balloon. Completion fistulogram was performed. The balloon was removed, the wire was removed, the sheath was removed, and hemostasis was achieved. FINDINGS: Initial fistulogram demonstrates a focal high-grade stenosis extending from the arterioven ous anastomosis centrally within the peripheral portion of the venous outflow. Completion fistulogram demonstrates resolution of the stenosis. The more central portions of the venous outflow are widely patent to the level of the SVC. IMPRESSION: 1. Status post balloon angioplasty of a focal high-grade stenosis within the peripheral portion of th e venous outflow of left upper extremity fistula. Dictated by: Kary Emmanuel M.D. on 11/17/2016 at 14:37 Approved by: Kary Emmanuel M.D. on 11/17/2016 at 14:46
== END 2016-11-17 23:59 ==
LOC: SOUO 00:20
PROVIDERS: ATTEND Radiology Vascular & Interventional Radiology
DX: T82.858A Stenosis of other vascular prosthetic devices, implants and grafts, initial encounter (principal); Y83.2 Surgical operation with anastomosis, bypass or graft as the cause of abnormal reaction of the patient, or of later complication, without mention of misadventure at the time of the procedure
CPT/HCPCS: 36902; 99152; 99153; C1725; C1769; C1894; J2250; J2550; J3010; Q9967